=== PATIENT | female | born 1940 | race African-American/Black ===

== ENCOUNTER 2016-09-12 13:10 | Inpatient (IN) ==
--- NOTE | 2016-09-12 13:45 | Emergency Department Note ---
Disposition Clinical Impression: Dehydration, Fever, Renal failure, Anemia, Influenza A, Weakness, Hypotension, Abnormal urinalysis, Hypokalemia Disposition: Admitted As Inpatient Referrals: NO,PCP [Non-Partnered Physician] - General Adult HPI - General Chief complaint: ED General Medical Stated complaint: abd pain, dizziness,cough,headache Time Seen by Provider: 09/12/16 13:44 Source: patient Limitations: no limitations - History of Present Illness HPI Narrative: 75-year-old female reports emergency department complaining of a cough and fever. She reports she went to [facility] on Thursday and came back and became ill the next day. The patient has had a runny nose as well. No headache next of this rash or convulsion. No trouble moving the arms or legs and apparently. The patient has Crohn's disease but does not think is a Crohn' s flare. She has chronically loose stool. There is no history of tyron abdominal pain no vomiting. She has not been having any chest pain or coughing up blood. No leg swelling or pain. The patient has had some shortness of breath. There is been no back pain or urinary symptoms. The patient has been ill for a few days. She does not have a known history of COPD or asthma. She does not usually wear oxygen. No rashes are reported. The patient does not take anticoagulant medication at this time. There is a history of dizziness and weakness. Pain Scale: 4 - Related Data Home Medications Medication Instructions Recorded Confirmed Aspirin 06/20/15 06/20/15 Calcium 600 + D Tablet 06/20/15 06/20/15 Lumigan 06/20/15 06/20/15 Previous Rx's Medication Instructions Recorded Acetaminophen [Tylenol] 500 - 1,000 mg PO Q6HR PRN #30 06/20/15 tablet Amoxicillin 875 mg PO BID #20 tablet 06/20/15 GuaiFENesin ER [Mucinex] 1 - 2 tab PO BID PRN #40 tab 06/20/15 PredniSONE [Prednisone] 40 mg PO DAILY #10 tablet 06/20/15 Promethazine/Dextromethorphan 5 ml PO Q4H PRN #120 ml 06/20/15 [Promethazine-Dm Syrup] Meclizine [Antivert] 25 mg PO TID #20 tablet 12/26/15 Ondansetron HCl [Zofran] 4 mg PO 2-3XD PRN #14 tablet 12/26/15 Allergies Allergy/AdvReac Type Severity Reaction Status Date / Time IV Iron Allergy Anaphylaxis Uncoded 12/26/15 10:04 All systems ED: reviewed and negative except as stated. Past Medical History - Past Medical History Medical history: Reports: renal disease, other Psychiatric history: Reports: no psych history REGISTER CLERK history: Reports: no REGISTER CLERK history - Social History Smoking Status: Former smoker Smokeless Tobacco Status: No Alcohol use: Reports: none Drug use: Reports: none Physical Exam - General Limitations: no limitations General appearance: alert, in no apparent distress - Head Head exam: atraumatic, normocephalic, normal inspection - Eye Eye exam: Present: normal appearance, PERRL, EOMI. Absent: miosis, mydriasis - ENT ENT exam: normal exam, normal oropharynx, mucous membranes moist, TM's normal bilaterally, normal external ear exam - Neck Neck exam: Present: normal inspection, full ROM, trachea midline. Absent: tenderness - Chest Chest inspection: Present: symmetric chest wall rise - Respiratory Respiratory exam: Present: normal lung sounds bilaterally. Absent: respiratory distress - Cardiovascular Cardiovascular exam: Present: regular rate, normal rhythm, normal heart sounds - Abdominal Exam Abdominal exam: Present: soft, Non-Tender. Absent: tenderness, distention, guarding, rebound, rigidity, pulsatile mass - Extremities Exam Extremities exam: Present: normal inspection, full ROM, normal capillary refill. Absent: tenderness, pedal edema, joint swelling, calf tenderness - Expanded Lower Extremity Exam Neurovascular/Tendon exam: Present: pulse deficit. Absent: motor deficit, sensory deficit, tendon deficit - Back Exam Back exam: Present: normal inspection, full ROM, vertebral tenderness. Absent: tenderness, CVA tenderness (R), CVA tenderness (L) - Neurological Exam Neurological exam: Present: alert, oriented X3, CN II-XII intact. Absent: motor sensory deficit - Psychiatric Psychiatric exam: Present: normal affect, normal mood - Skin Skin exam: Present: warm, dry, intact, normal color. Absent: rash, cyanosis, diaphoresis, erythema, pallor, mottled Course Vital Signs Temperature 101.3 F H 09/12/16 13:17 Pulse Rate 70 09/12/16 13:17 Respiratory Rate 18 09/12/16 13:17 Blood Pressure 96/60 09/12/16 13:17 O2 Sat by Pulse Oximetry 100 09/12/16 13:17 Temperature 101.3 F H 09/12/16 13:17 Pulse Rate 87 09/12/16 16:20 Respiratory Rate 18 09/12/16 16:20 Blood Pressure 111/50 09/12/16 16:20 O2 Sat by Pulse Oximetry 97 09/12/16 16:20 Oxygen Delivery Oxygen Delivery Room Air Medical Decision Making - MDM Narrative Medical decision making narrative: The patient felt dizzy and weak, her blood pressure on arrival was less than 100 systolic. She was given IV fluid boluses. Her BUN and creatinine are elevated, consistent with her chronic renal insufficiency. Her chest x-ray shows no acute disease, she tested positive for influenza A. The patient has a history of Crohn's disease and does not think she has a Crohn's flare but does have persistently loose stool. I spoke with the patient's family and considered the option for discharge but they feel she is too weak to go home and feel if we send her out she will come right back to the ED. The patient denies any chest pain. She does have a fever. Based on her frailty and age, Tamiflu was ordered. The patient also has an abnormal urinalysis which may be contributory, I discussed the case with the hospitalist, we will have the patient placed for observation and fluid therapy, further evaluation, and symptomatic control. - Lab Data Lab results reviewed: Yes I reviewed the patient's lab results. Result diagrams: 09/12/16 14:42 09/12/16 14:42 Lab Results 09/12/16 09/12/16 09/12/16 Range/Units 13:45 14:42 14:42 WBC 4.6 (4.3-11.1) K/mcL RBC 4.22 (3.82-4.97) M/mcL Hgb 11.0 L (11.5-15.4) g/dL Hct 35.1 L (35.3-44.9) % MCV 83.2 (83.0-100.0) fL MCH 26.1 L (28.0-33.3) pg MCHC 31.3 L (31.6-35.5) g/dL RDW 15.1 H (11.5-14.5) % Plt Count 128 L (140-400) K/mcL MPV 10.3 (9.4-12.4) fL Immature Gran % 0.7 (0-4) % Seg Neutrophils % 77.2 % Lymphocytes % 11.8 % Monocytes % 9.0 % Eosinophils % 0.9 % Basophils % 0.4 % Neutrophils # 3.5 (1.6-8.9) K/mcL Lymphocytes # 0.5 L (0.6-4.6) K/mcL Monocytes # 0.4 (0.0-1.3) K/mcL Eosinophils # 0.0 (0.0-0.6) K/mcL Basophils # 0.0 (0.0-0.2) K/mcL Immature Plt Fraction 2.1 (1.1-6.1) % Sodium 138 (136-145) mEq/L Potassium 3.2 L (3.5-4.5) mEq/L Chloride 112 H (98-109) mEq/L Carbon Dioxide 16 L (19-29) mEq/L BUN 22 H (7-20) mg/dL Creatinine 2.55 H (0.57-1.11) mg/dL Est GFR ( Amer) 22 L (> 60) Est GFR (Non-Af Amer) 18 L (> 60) BUN/Creatinine Ratio 9 (6-26) Glucose 95 (70-99) mg/dL Calculated Osmolality 289 (280-300) Lactic Acid (0.5-2.2) mmol/L Calcium 8.8 (8.6-10.8) mg/dL Total Bilirubin 0.4 (0.2-1.2) mg/dL Direct Bilirubin 0.1 (0.0-0.5) mg/dL Indirect Bilirubin 0.3 (0.0-1.2) mg/dL AST 13 (5-34) Units/L ALT 12 (0-55) Units/L Alkaline Phosphatase 77 (38-126) Units/L Troponin I (0-0.03) ng/mL C-Reactive Protein (Less than 5) mg/L Serum Total Protein 6.9 (6.0-8.3) g/dL Albumin 3.2 L (3.5-5.0) g/dL Globulin 3.7 H (2.4-3.5) g/dL Albumin/Globulin Ratio 0.9 L (1.1-2.2) Urine Color Yellow (Yellow) Urine Clarity Clear (Clear) Urine pH 5.5 (5.0-8.0) pH Units Ur Specific [place] 1.017 (1.010-1.025) Urine Protein 100 H (Neg-Trace) mg/dL Urine Glucose (UA) Normal (Normal) mg/dL Urine Ketones Negative (Negative) mg/dL Urine Blood Trace H (Negative) Urine Nitrite Negative (Negative) Urine Bilirubin Negative (Negative) Urine Urobilinogen Normal (Normal) mg/dL Ur Leukocyte Esterase Small H (Negative) Urine Microscopic RBC 5-15 H (0-3) per hpf Urine Microscopic WBC 5-15 H (0-3) per hpf Ur Squamous Epith Cells Many H (None-Few) per lpf Urine Bacteria Few (None-Few) per hpf Hyaline Casts None Seen (None-Few) per lpf Ur Culture Indicated? YES A (NO) 09/12/16 09/12/16 09/12/16 Range/Units 14:42 14:42 14:42 WBC (4.3-11.1) K/mcL RBC (3.82-4.97) M/mcL Hgb (11.5-15.4) g/dL Hct (35.3-44.9) % MCV (83.0-100.0) fL MCH (28.0-33.3) pg MCHC (31.6-35.5) g/dL RDW (11.5-14.5) % Plt Count (140-400) K/mcL MPV (9.4-12.4) fL Immature Gran % (0-4) % Seg Neutrophils % % Lymphocytes % % Monocytes % % Eosinophils % % Basophils % % Neutrophils # (1.6-8.9) K/mcL Lymphocytes # (0.6-4.6) K/mcL Monocytes # (0.0-1.3) K/mcL Eosinophils # (0.0-0.6) K/mcL Basophils # (0.0-0.2) K/mcL Immature Plt Fraction (1.1-6.1) % Sodium (136-145) mEq/L Potassium (3.5-4.5) mEq/L Chloride (98-109) mEq/L Carbon Dioxide (19-29) mEq/L BUN (7-20) mg/dL Creatinine (0.57-1.11) mg/dL Est GFR ( Amer) (> 60) Est GFR (Non-Af Amer) (> 60) BUN/Creatinine Ratio (6-26) Glucose (70-99) mg/dL Calculated Osmolality (280-300) Lactic Acid 1.2 (0.5-2.2) mmol/L Calcium (8.6-10.8) mg/dL Total Bilirubin (0.2-1.2) mg/dL Direct Bilirubin (0.0-0.5) mg/dL Indirect Bilirubin (0.0-1.2) mg/dL AST (5-34) Units/L ALT (0-55) Units/L Alkaline Phosphatase (38-126) Units/L Troponin I 0.00 (0-0.03) ng/mL C-Reactive Protein 22 H (Less than 5) mg/L Serum Total Protein (6.0-8.3) g/dL Albumin (3.5-5.0) g/dL Globulin (2.4-3.5) g/dL Albumin/Globulin Ratio (1.1-2.2) Urine Color (Yellow) Urine Clarity (Clear) Urine pH (5.0-8.0) pH Units Ur Specific [place] (1.010-1.025) Urine Protein (Neg-Trace) mg/dL Urine Glucose (UA) (Normal) mg/dL Urine Ketones (Negative) mg/dL Urine Blood (Negative) Urine Nitrite (Negative) Urine Bilirubin (Negative) Urine Urobilinogen (Normal) mg/dL Ur Leukocyte Esterase (Negative) Urine Microscopic RBC (0-3) per hpf Urine Microscopic WBC (0-3) per hpf Ur Squamous Epith Cells (None-Few) per lpf Urine Bacteria (None-Few) per hpf Hyaline Casts (None-Few) per lpf Ur Culture Indicated? (NO) - Radiology Data Radiology results reviewed: Yes I reviewed the patient's radiology results.
[2016-09-12] MEDS ORDERED: 0.9 % Sodium Chloride 1,000 ML IVC ONE ×2 (14:05→15:41)
[2016-09-12 14:50] LABS: Basophils % 0.4 %; Eosinophils % 0.9 %; Hematocrit 35.1 % (35.3-44.9); Immature Granulocytes % 0.7 % (0-4); Immature Platelets 2.1 % (1.1-6.1); Lymphocytes # 0.5 K/mcL (0.6-4.6); Lymphocytes % 11.8 %; Mean Corpuscular HGB Conc 31.3 g/dL (31.6-35.5); Mean Corpuscular Hemoglobin 26.1 pg (28.0-33.3); Mean Corpuscular Volume 83.2 fL (83.0-100.0); Mean Platelet Volume 10.3 fL (9.4-12.4); Monocytes # 0.4 K/mcL (0.0-1.3); Neutrophils # 3.5 K/mcL (1.6-8.9); Platelet Count 128 K/mcL (140-400); Red Blood Count 4.22 M/mcL (3.82-4.97); Red Cell Distribution Width 15.1 % (11.5-14.5); Segmented Neutrophils % 77.2 %
[2016-09-12 15:04] LABS: Albumin 3.2 g/dL (3.5-5.0); Albumin/Globulin Ratio 0.9 (1.1-2.2); Bilirubin,Direct 0.1 mg/dL (0.0-0.5); Bilirubin,Indirect 0.3 mg/dL (0.0-1.2); Bilirubin,Total 0.4 mg/dL (0.2-1.2); Calcium 8.8 mg/dL (8.6-10.8); Globulin 3.7 g/dL (2.4-3.5); Potassium 3.2 mEq/L (3.5-4.5); Total Protein 6.9 g/dL (6.0-8.3)
[2016-09-12 17:06] LABS: Bilirubin,Urine Negative (Negative); Blood,Urine Trace (Negative); Clarity,Urine Clear (Clear); Color,Urine Yellow (Yellow); Glucose,Urine (UA) Normal (Normal); Ketones,Urine Negative (Negative); Leukocyte Esterase,Urine Small (Negative); Nitrite,Urine Negative (Negative); PH,Urine 5.5 pH Units (5.0-8.0); Protein,Urine 100 mg/dL (Neg-Trace); Specific Gravity,Urine 1.017 (1.010-1.025); Urobilinogen,Urine Normal (Normal)
[2016-09-12 17:08] LABS: Bacteria,Urine Few per hpf (None-Few); Hyaline Casts,Urine None Seen per lpf (None-Few); Squamous Epithelial Cell,Urine Many per lpf (None-Few)
[2016-09-12] MEDS ORDERED: Ibuprofen 400 MG TABLET PO PRN (17:49)
[2016-09-12] MEDS ORDERED: Naloxone 0.4 MG/ML INJ IVP PRN (17:49)
[2016-09-12] MEDS ORDERED: *HR* Morphine 2 MG/ML SYRINGE IVP PRN (17:49)
[2016-09-12] MEDS ORDERED: Ondansetron 4 MG/2 ML VIAL IVP PRN (17:49)
[2016-09-12] MEDS ORDERED: Ipratropium/Albuterol Neb 3 ML IH PRN (17:52)
--- NOTE | 2016-09-12 17:57 | Internal Med History&Physical ---
Date of Encounter: 09/12/16 Time of Encounter: 17:55 Assessment and Plan (1) Influenza A Current visit: Yes Status: Acute Fever, dehydration and severe weakness secondary to influenza A + urinary tract infection Start Tamiflu, continue Rocephin Follow urine culture IV fluids (2) Crohns disease Current visit: Yes Status: Acute Not active Qualifiers: Gastrointestinal tract location: unspecified location Digestive disease complication type: unspecified complication Qualified Code(s): K50.919 - Crohn 's disease, unspecified, with unspecified complications (3) Dehydration Current visit: Yes Status: Acute (4) Fever Current visit: Yes Status: Acute Qualifiers: Fever type: other Qualified Code(s): R50.81 - Fever presenting with conditions classified elsewhere (5) Hypokalemia Current visit: Yes Status: Acute Replete as needed (6) Renal failure Current visit: Yes Status: Acute CK D stage IV Dehydration Famotidine for GI prophylaxis and subcutaneous heparin for DVT prophylaxis. The patient will be admitted for observation. She is a full code. Time spent on this admission 40 minutes. High risk of complications from influenza Internal Medicine - H&P: HPI Chief complaint: Fever Admitted From: Emergency Dept History of present illness: Ms. Wilkinson is a 75 year old female with a past medical history of Crohn's disease, chronic kidney disease stage IV, GERD who comes the emergency room complaining of severe weakness, cough and fevers. She ran a fever of 101.3, denies any sick contacts but she went to [place] on Thursday in the next day she felt like she was having a runny nose and he started getting worse. Also she has been complaining of some dysuria on and off, the UA shows 15 white blood cells. Chest x-ray does not show any abnormality platelets are 128 and creatinine is 2.55. The patient was positive for influenza A. Potassium is 3.2. The patient has been complaining of some yellowish phlegm coming up as well. Denies any other complaints. She is very dehydrated and not able to walk due to weakness Past Med Surg Social Fam HX - Past Medical History Medical history: hyperlipidemia, renal disease (Chronic kidney disease stage IV) , other (Crohn's disease, degenerative disc disease L5-S1, GERD, glaucoma, iron deficiency anemia) Psychiatric history: no psych history - Past Surgical History Surgical History: appendectomy, hysterectomy, other (Tonsillectomy, right breast biopsy, right knee arthroscopy/meniscectomy, right salpingo-oophorectomy) - Social History Smoking Status: Former smoker Smokeless Tobacco Status: No Alcohol use: none Drug use: none - Additional Family History Additional family history: Mother and sister with diabetes and CVA, mother with heart disease Internal Medicine - H&P: Meds Aspirin [Lo-Dose Aspirin EC] 81 mg PO DAILY 09/12/16 [History] Brimonidine Tartrate 1 drop LEFT EYE TID 09/12/16 [History] Calcium Carb, Citrate/Vit D3 [Calcium + D3 ER Tablet] 1 tab PO DAILY 09/12/16 [ History] Cholecalciferol (D-3) [Vitamin D] 2,000 unit PO DAILY 09/12/16 [History] Cyanocobalamin (B-12) [Vitamin B12] 1,000 mcg IM QMONTH 09/12/16 [History] Ergocalciferol (VITAMIN D2) [Vitamin D2] 50,000 unit PO TUWE 09/12/16 [History] Fluticasone Propionate Nasal [Flonase] 50 mcg NS DAILY 09/12/16 [History] Lactobacillus Acidophilus [Acidophilus] 1 cap PO DAILY 09/12/16 [History] Latanoprost [Xalatan] 1 drop BOTH EYES HS 09/12/16 [History] Stehekin-3 Acid Ethyl Esters [Lovaza] 1 gm PO BID 09/12/16 [History] Omeprazole [PriLOSEC] 20 mg PO DAILY 09/12/16 [History] Potassium Chloride [K-Tab ER] 20 meq PO TID 09/12/16 [History] Ropinirole [Requip] 0.25 mg PO HS 09/12/16 [History] Tramadol HCl [Ultram] 50 mg PO Q6H PRN 09/12/16 [History] Allergies iron Allergy (Verified 09/12/16 17:46) Anaphylaxis IRON INFUSION- Oocakgv-Wcw-Rpo Reductase Inhibitor [Statins] Adverse Reaction (Verified 17:46) Muscle Pain All Systems PM: A 10-system review of systems was performed and is negative for pertinent findings except as documented above in the HPI. Review of systems: No chest pain, feels mildly short of breath, no abdominal pain, no diarrhea more than usual. Other systems out the 10 reviewed were negative - Constitutional Vitals: Temp Pulse Resp BP Pulse Ox 101.3 F H 87 18 111/50 97 09/12/16 13:17 09/12/16 16:20 09/12/16 16:20 09/12/16 16:20 09/12/16 16:20 General appearance: Present: A&O X 3 - Head Head exam: Present: atraumatic, normocephalic - Eye Eye exam: Present: PERRL, conjuntiva pink, sclera anicteric Pupils: Present: PERRL - Neck Neck exam general surgery: Present: supple, trachea midline. Absent: lymphadenopathy - Respiratory Respiratory exam: Present: CTAB, rales (Bibasilar fine crackles). Absent: accessory muscle use, rhonchi, wheezes - Cardiovascular Cardiovascular exam: Present: RRR, +S1, +S2. Absent: diastolic murmur, gallop, rubs, systolic murmur - GI/Abdominal GI/Abdominal exam: Present: normal bowel sounds, soft, no peritoneal signs. Absent: distended, tenderness - Extremities Exam Extremities exam: Present: warm, radial pulses palpable and symetrical. Absent : calf tenderness, cyanotic, pedal edema - Neurological Exam Neurological exam: Present: CN II-XII intact, oriented X3, no focal deficits. Absent: pronater drift, facial droop, speech deficit - Skin Skin exam: Present: dry, intact Internal Med - H&P Results - Labs CBC & Chem 7: 09/12/16 14:42 09/12/16 14:42
[2016-09-12] MEDS ORDERED: 0.9 % Sodium Chloride 1,000 ML IVC SCH (18:00)
[2016-09-12] MEDS: Famotidine 20 MG TABLET PO SCH (20:53)
[2016-09-12] MEDS: Acetaminophen 325 MG TABLET PO PRN (20:53)
[2016-09-12] MEDS ORDERED: 0.9 % Sodium Chloride 500 ML IVC ONE (21:11)
[2016-09-13] MEDS: *HR* Heparin 5,000 UNIT/ML VIAL SQ SCH ×3 (00:31→17:33)
[2016-09-13] MEDS ORDERED: 0.9 % Sodium Chloride 1,000 ML IVC SCH (00:35)
[2016-09-13 03:37] LABS: Hematocrit 31.9 % (35.3-44.9); Mean Corpuscular HGB Conc 31.3 g/dL (31.6-35.5); Mean Corpuscular Hemoglobin 26.6 pg (28.0-33.3); Mean Corpuscular Volume 84.8 fL (83.0-100.0); Mean Platelet Volume 10.4 fL (9.4-12.4); Platelet Count 103 K/mcL (140-400); Red Blood Count 3.76 M/mcL (3.82-4.97); Red Cell Distribution Width 15.1 % (11.5-14.5)
[2016-09-13 03:52] LABS: Calcium 7.9 mg/dL (8.6-10.8); Potassium 3.3 mEq/L (3.5-4.5)
[2016-09-13] MEDS: Acetaminophen 325 MG TABLET PO PRN ×2 (03:58→12:51)
[2016-09-13] MEDS: Famotidine 20 MG TABLET PO SCH (08:53)
[2016-09-13] MEDS: Aspirin 81 MG TAB.CHEW PO SCH (08:53)
[2016-09-13] MEDS: GuaiFENesin Liq 200 MG/10 ML UDC PO SCH ×2 (12:50→17:33)
[2016-09-13] MEDS ORDERED: Potassium Chloride Elixir 20 MEQ/15 ML UDC PO ONE (15:05)
--- NOTE | 2016-09-13 15:11 | Internal Med Progress Note ---
Date of Encounter: 09/13/16 Time of Encounter: 09:00 - Assessment and plan (1) Influenza A Current Visit: Yes Status: Acute Assessment and plan: Flu test that shows influenza A positive. We will continue Tamiflu to finish a 5 day course. (2) UTI (urinary tract infection) Current Visit: Yes Status: Acute Assessment and plan: Continue Rocephin for UTI. Qualifiers: Urinary tract infection type: acute cystitis Hematuria presence: without hematuria Qualified Code(s): N30.00 - Acute cystitis without hematuria (3) Crohns disease Current Visit: Yes Status: Acute Assessment and plan: Stable right now. Qualifiers: Gastrointestinal tract location: unspecified location Digestive disease complication type: unspecified complication Qualified Code(s): K50.919 - Crohn 's disease, unspecified, with unspecified complications (4) Dehydration Current Visit: Yes Status: Acute Assessment and plan: Patient has a mild dehydration. We will continue IV fluid. Change to lactated ringer solution because of the low bicarbonate. (5) Fever Current Visit: Yes Status: Acute Assessment and plan: Possibly due to influenza. Continue symptoms and supportive treatment Qualifiers: Fever type: other Qualified Code(s): R50.81 - Fever presenting with conditions classified elsewhere (6) Hypokalemia Current Visit: Yes Status: Acute Assessment and plan: Continue potassium supplement, follow-up potassium level (7) CKD (chronic kidney disease) Current Visit: Yes Status: Acute Assessment and plan: Patient has history of CKD. Creatinine level is stable Qualifiers: Chronic kidney disease stage: stage 4 (severe) Qualified Code(s): N18.4 - Chronic kidney disease, stage 4 (severe) (8) DVT prophylaxis Current Visit: Yes Status: Acute Assessment and plan: Heparin subcutaneously - Time Spent With Patient 25 - 35 minutes - Subjective Interval history: Patient is a 75-year-old female admitted for fever and cough. Her past medical history is significant for hyperlipidemia, she daily, Crohn disease, glaucoma, iron deficiency anemia. Patient was seen and examined. She had another episode of fever this morning. When I saw her, she is awake alert, oriented 3, no fever, complaining nonproductive cough, no shortness of breath, no chest pain, no nausea, no vomiting. Vital signs stable. We will continue Tamiflu and Rocephin for UTI. Add cough syrup for symptomatic control. - Constitutional Vitals: Temp Pulse Resp BP Pulse Ox 98.7 F 68 17 96/62 94 L 09/13/16 10:45 09/13/16 10:45 09/13/16 10:45 09/13/16 10:45 09/13/16 10:45 General appearance: Present: A&O X 3, no acute distress, answers questions appropriately - Head Head exam: Present: atraumatic, normocephalic - Eye Eye exam: Present: PERRL, conjuntiva pink, sclera anicteric Pupils: Present: PERRL - Neck Neck exam general surgery: Present: supple, trachea midline. Absent: lymphadenopathy - Respiratory Respiratory exam: Present: CTAB. Absent: accessory muscle use, rales, rhonchi, wheezes - Cardiovascular Cardiovascular exam: Present: RRR, +S1, +S2. Absent: diastolic murmur, gallop, rubs, systolic murmur - GI/Abdominal GI/Abdominal exam: Present: normal bowel sounds, soft, no peritoneal signs. Absent: distended, tenderness - Extremities Exam Extremities exam: Present: warm, radial pulses palpable and symetrical. Absent : calf tenderness, cyanotic, pedal edema - Neurological Exam Neurological exam: Present: CN II-XII intact, oriented X3, no focal deficits. Absent: pronater drift, facial droop, speech deficit - Skin Skin exam: Present: dry, intact Internal Medicine: Result - Labs CBC & Chem 7: 09/13/16 02:37 09/13/16 02:37 Labs: Short CBC 09/13/16 Range/Units 02:37 WBC 3.8 L (4.3-11.1) K/mcL Hgb 10.0 L (11.5-15.4) g/dL Hct 31.9 L (35.3-44.9) % Plt Count 103 L (140-400) K/mcL BMP 09/13/16 02:37 Sodium 140 Potassium 3.3 L Chloride 116 H Carbon Dioxide 15 L BUN 18 Creatinine 2.24 H Glucose 93 Calcium 7.9 L Consult Discharge Plan - Plan
[2016-09-13] MEDS: Ringers Solution, Lactated 1,000 ML IVC SCH (17:34)
[2016-09-13] MEDS ORDERED: Oseltamivir Phosphate 30 MG CAPSULE PO SCH (18:00)
[2016-09-14] MEDS: *HR* Heparin 5,000 UNIT/ML VIAL SQ SCH ×2 (00:57→08:54)
[2016-09-14] MEDS: GuaiFENesin Liq 200 MG/10 ML UDC PO SCH ×2 (00:57→05:05)
[2016-09-14 04:25] LABS: Basophils % 0.3 %; Eosinophils # 0.1 K/mcL (0.0-0.6); Eosinophils % 4.8 %; Hematocrit 31.4 % (35.3-44.9); Hemoglobin 9.9 g/dL (11.5-15.4); Immature Granulocytes % 0.3 % (0-4); Lymphocytes % 35.1 %; Mean Corpuscular HGB Conc 31.5 g/dL (31.6-35.5); Mean Corpuscular Hemoglobin 26.5 pg (28.0-33.3); Mean Corpuscular Volume 84.2 fL (83.0-100.0); Mean Platelet Volume 10.9 fL (9.4-12.4); Monocytes # 0.4 K/mcL (0.0-1.3); Monocytes % 13.7 %; Neutrophils # 1.3 K/mcL (1.6-8.9); Platelet Count 105 K/mcL (140-400); Red Blood Count 3.73 M/mcL (3.82-4.97); Red Cell Distribution Width 15.4 % (11.5-14.5); Segmented Neutrophils % 45.8 %
[2016-09-14 04:38] LABS: Calcium 7.8 mg/dL (8.6-10.8); Potassium 3.3 mEq/L (3.5-4.5)
[2016-09-14] MEDS: Ringers Solution, Lactated 1,000 ML IVC SCH (05:05)
[2016-09-14 07:37] VITALS: BP 97/64
[2016-09-14] MEDS: Famotidine 20 MG TABLET PO SCH (08:54)
[2016-09-14] MEDS: Aspirin 81 MG TAB.CHEW PO SCH (08:54)
--- NOTE | 2016-09-14 09:34 | Discharge Summary ---
Date of Encounter: 09/14/16 Time of Encounter: 08:30 - Discharge Diagnosis (1) Influenza A Priority: Primary Status: Acute (2) UTI (urinary tract infection) Priority: Primary Status: Acute Qualifiers: Urinary tract infection type: acute cystitis Hematuria presence: without hematuria Qualified Code(s): N30.00 - Acute cystitis without hematuria (3) Crohns disease Priority: Secondary Status: Acute Qualifiers: Gastrointestinal tract location: unspecified location Digestive disease complication type: unspecified complication Qualified Code(s): K50.919 - Crohn 's disease, unspecified, with unspecified complications (4) Dehydration Priority: Secondary Status: Acute (5) Fever Priority: Secondary Status: Acute Qualifiers: Fever type: other Qualified Code(s): R50.81 - Fever presenting with conditions classified elsewhere (6) Hypokalemia Priority: Secondary Status: Acute (7) CKD (chronic kidney disease) Priority: Secondary Status: Acute Qualifiers: Chronic kidney disease stage: stage 4 (severe) Qualified Code(s): N18.4 - Chronic kidney disease, stage 4 (severe) (8) DVT prophylaxis Priority: Secondary Status: Acute - Discharge Medications Prescriptions: GuaiFENesin Liq [Robitussin Liq] 200 mg PO Q6HR 14 Days Amoxicillin/Clavulanate [Augmentin] 500 mg PO BIDWM #10 tablet Oseltamivir Phosphate [Tamiflu] 30 mg PO Q24H #4 capsule Home Medications: Aspirin [Lo-Dose Aspirin EC] 81 mg PO DAILY 09/12/16 [History] Brimonidine Tartrate 1 drop LEFT EYE TID 09/12/16 [History] Calcium Carb, Citrate/Vit D3 [Calcium + D3 ER Tablet] 1 tab PO DAILY 09/12/16 [ History] Cholecalciferol (D-3) [Vitamin D] 2,000 unit PO DAILY 09/12/16 [History] Cyanocobalamin (B-12) [Vitamin B12] 1,000 mcg IM QMONTH 09/12/16 [History] Ergocalciferol (VITAMIN D2) [Vitamin D2] 50,000 unit PO TUWE 09/12/16 [History] Fluticasone Propionate Nasal [Flonase] 50 mcg NS DAILY 09/12/16 [History] Lactobacillus Acidophilus [Acidophilus] 1 cap PO DAILY 09/12/16 [History] Latanoprost [Xalatan] 1 drop BOTH EYES HS 09/12/16 [History] Dix-3 Acid Ethyl Esters [Lovaza] 1 gm PO BID 09/12/16 [History] Omeprazole [PriLOSEC] 20 mg PO DAILY 09/12/16 [History] Potassium Chloride [K-Tab ER] 20 meq PO TID 09/12/16 [History] Ropinirole [Requip] 0.25 mg PO HS 09/12/16 [History] Tramadol HCl [Ultram] 50 mg PO Q6H PRN 09/12/16 [History] Amoxicillin/Clavulanate [Augmentin] 500 mg PO BIDWM #10 tablet 09/14/16 [Rx] GuaiFENesin Liq [Robitussin Liq] 200 mg PO Q6HR 14 Days 09/14/16 [Rx] Oseltamivir Phosphate [Tamiflu] 30 mg PO Q24H #4 capsule 09/14/16 [Rx] Allergies/Adverse Reactions: Allergies iron Allergy (Verified 09/12/16 17:46) Anaphylaxis IRON INFUSION- Gelvpus-Tfd-Jqt Reductase Inhibitor [Statins] Adverse Reaction (Verified 17:46) Muscle Pain Date of admission: 09/13/16 15:03 Primary care physician: Vasquez Morris MD Discharging clinician: Marina Jessica Anticipated date of discharge: 09/14/16 - Patient Status Disposition: Home, Self-Care Condition: Good Functional capacity at discharge: independent ambulation Overall status at discharge: patient is back to baseline - Discharge Instructions Follow Up With: Vasquez Morirs MD [Primary Care Provider] - Forms: ED Satisfaction Letter, Work/School Release - Diet and Activity Activity: increase activity as tolerated Diet: advance to your usual diet, regular diet Interval History: Ms. Wilkinson is a 75 year old female with a past medical history of Crohn's disease, chronic kidney disease stage IV, GERD who comes the emergency room complaining of severe weakness, cough and fevers. She ran a fever of 101.3, denies any sick contacts but she went to [place] on Thursday in the next day she felt like she was having a runny nose and he started getting worse. Also she has been complaining of some dysuria on and off, the UA shows 15 white blood cells. Chest x-ray does not show any abnormality platelets are 128 and creatinine is 2.55. The patient was positive for influenza A. Potassium is 3.2. The patient has been complaining of some yellowish phlegm coming up as well. Denies any other complaints. She is very dehydrated and not able to walk due to weakness Hospital course: Ms. Wilkinson is a 75 year old female admitted for cough and fever. Chest x-ray is negative. Flu test that shows she has influenza A. urinalysis showed UTI. Patient was given IV fluid, Tamiflu by mouth, and the Rocephin. After treatment , her symptoms has improved. She has no further fever. She complains some sinusitis symptoms. Patient will discharge home today with by mouth Tamiflu to finish a 5 day course. She is also given Augmentin by mouth for sinusitis and UTI. Patient was seen and examined today. She has no fever, still mild cough, mild stuff nose, vitals are stable. Patient has a mild hypokalemia(K 3.3). She told me she always has hypokalemia and it is due to her Crohn disease and chronic diarrhea. She has potassium pills in her home medication list and knows she needs to follow-up with PCP to check the potassium level. Will continue home dose of potassium supplement. Patient will follow-up with PCP as outpatient. - Time Spent with Patient Total time spent providing and/or coordinating discharge services: 40 minutes Greater than 30 minutes - Constitutional Vitals: Temp Pulse Resp BP Pulse Ox 98.5 F 77 17 97/64 93 L 09/14/16 07:32 09/14/16 07:32 09/14/16 07:32 09/14/16 07:32 09/14/16 07:32 General appearance: Present: A&O X 3, no acute distress, answers questions appropriately - Head Head exam: Present: atraumatic, normocephalic - Eye Eye exam: Present: PERRL, conjuntiva pink, sclera anicteric Pupils: Present: PERRL - Neck Neck exam general surgery: Present: supple, trachea midline. Absent: lymphadenopathy - Respiratory Respiratory exam: Present: CTAB. Absent: accessory muscle use, rales, rhonchi, wheezes - Cardiovascular Cardiovascular exam: Present: RRR, +S1, +S2. Absent: diastolic murmur, gallop, rubs, systolic murmur - GI/Abdominal GI/Abdominal exam: Present: normal bowel sounds, soft, no peritoneal signs. Absent: distended, tenderness - Extremities Exam Extremities exam: Present: warm, radial pulses palpable and symetrical. Absent : calf tenderness, cyanotic, pedal edema - Neurological Exam Neurological exam: Present: CN II-XII intact, oriented X3, no focal deficits. Absent: pronater drift, facial droop, speech deficit - Skin Skin exam: Present: dry, intact
--- NOTE | 2016-09-15 09:23 | Electrocardiograph Report ---
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
== END 2016-09-14 11:22 | disposition home or self-care (01) | DRG 194 ==
LOC: EMEROO 13:10 → 3BNU 13:10 → SUATTDRO 17:31 → 3BNU 18:25
PROVIDERS: ADMIT Internal Medicine; ATTEND Internal Medicine

== ENCOUNTER 2017-11-18 15:30 | Observation (INO) ==
--- NOTE | 2017-11-18 16:02 | Emergency Department Note ---
Disposition Clinical Impression: TIA (transient ischemic attack) Qualifiers: Transient cerebral ischemia type: unspecified Qualified Code(s): G45.9 - Transient cerebral ischemic attack, unspecified Disposition: Admitted As Inpatient Condition: Fair Referrals: Vasquez Morris MD [Primary Care Provider] - Forms: ED Satisfaction Letter Time of Disposition: 18:09 Headache HPI - General Chief Complaint: ED Headache Stated Complaint: MADRIGAL Time Seen by Provider: 11/18/17 15:45 Source: patient Mode of arrival: ambulatory Limitations: no limitations Nursing Notes Reviewed: Yes Vital Signs Reviewed: Yes - History of Present Illness HPI Narrative: 77-year-old who was getting out of a cart [facility] and developed severe left temporal pain. She states she had to sit down. She states then got up after resolved and walked and developed severe pain again. She feels funny left side of her head and face. Denies visual changes. 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 Onset description: sudden Location: left, temporal Pain Severity: severe Pain Scale: 1 Improves with: other (Time) Context: occurred at rest Associated symptoms: Reports: none Treatments prior to arrival: none - Related Data Home Medications Medication Instructions Recorded Confirmed Aspirin [Lo-Dose Aspirin EC] 81 mg PO DAILY 09/12/16 09/12/16 Brimonidine Tartrate 1 drop LEFT EYE TID 09/12/16 09/12/16 Calcium Carb, Citrate/Vit D3 1 tab PO DAILY 09/12/16 09/12/16 [Calcium + D3 ER Tablet] Cholecalciferol (D-3) [Vitamin D] 2,000 unit PO DAILY 09/12/16 09/12/16 Cyanocobalamin (B-12) [Vitamin B12] 1,000 mcg IM QMONTH 09/12/16 09/12/16 Ergocalciferol (VITAMIN D2) 50,000 unit PO TUWE 09/12/16 09/12/16 [Vitamin D2] Fluticasone Propionate Nasal 50 mcg NS DAILY 09/12/16 09/12/16 [Flonase] Lactobacillus Acidophilus 1 cap PO DAILY 09/12/16 09/12/16 [Acidophilus] Latanoprost [Xalatan] 1 drop BOTH EYES HS 09/12/16 09/12/16 [place]-3 Acid Ethyl Esters [Lovaza] 1 gm PO BID 09/12/16 09/12/16 Omeprazole [PriLOSEC] 20 mg PO DAILY 09/12/16 09/12/16 Potassium Chloride [K-Tab ER] 20 meq PO TID 09/12/16 09/12/16 Tramadol HCl [Ultram] 50 mg PO Q6H PRN 09/12/16 09/12/16 rOPINIRole [Requip] 0.25 mg PO HS 09/12/16 09/12/16 Previous Rx's Medication Instructions Recorded Amoxicillin/Clavulanate [Augmentin] 500 mg PO BIDWM #10 tablet 09/14/16 GuaiFENesin Liq [Robitussin Liq] 200 mg PO Q6HR 14 Days udc 09/14/16 Oseltamivir Phosphate [Tamiflu] 30 mg PO Q24H #4 capsule 09/14/16 Meclizine [Antivert] 12.5 mg PO TID #15 tablet 11/25/16 Montelukast [Singulair] 10 mg PO DAILY #20 tablet 11/25/16 Cyclobenzaprine HCl 5 - 10 mg PO TID PRN #30 tablet 03/11/17 Allergies Allergy/AdvReac Type Severity Reaction Status Date / Time iron Allergy Anaphylaxis Verified 11/18/17 15:43 Trtcugf-Vgl-Doa Reductase AdvReac Muscle Pain Verified 11/18/17 15:43 Inhibitor [Statins] All systems ED: reviewed and negative except as stated. Constitutional: Denies: fever, chills, weakness, weight change Eyes: Denies: eye pain, eye discharge, vision change ENT ED: Denies: ear pain, throat pain, dental pain, hearing loss, epistaxis, congestion, dysphagia Cardiovascular: Denies: chest pain, palpitations, dyspnea on exertion, edema, syncope Respiratory: Denies: cough, dyspnea, wheezes, hemoptysis, stridor Gastrointestinal: Denies: abdominal pain, nausea, vomiting, diarrhea, constipation, hematemesis, melena, hematochezia Genitourinary: Denies: dysuria, frequency, hematuria, discharge Musculoskeletal: Denies: back pain, neck pain, arthralgia, myalgia Integumentary: Denies: rash, abrasion, lesions Neurological: Reports: headache, numbness (Left head and face). 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) Female Surgical History: Reports: non-contributory, appendectomy, cholecystectomy, hysterectomy, other (multiple bowel resections; Tumor on pancrease removed ) Psychiatric history: Reports: no psych history QUANTITATIVE RESEARCH ANALYST history: Reports: no QUANTITATIVE RESEARCH ANALYST history - Social History Smoking Status: Never smoker Alcohol use: Reports: none Drug use: Reports: none Physical Exam - General Limitations: no limitations General appearance: alert - Head Head exam: atraumatic, normocephalic, normal inspection - Eye Eye exam: Present: normal appearance, PERRL, EOMI - ENT ENT exam: normal exam, normal oropharynx, mucous membranes moist - Neck Neck exam: Present: normal inspection, full ROM, trachea midline - Chest Chest inspection: Present: normal inspection, symmetric chest wall rise - Respiratory Respiratory exam: Present: normal lung sounds bilaterally - Cardiovascular Cardiovascular exam: Present: regular rate, normal rhythm, normal heart sounds - Abdominal Exam Abdominal exam: Present: soft, Non-Tender. Absent: tenderness, distention, guarding, rebound, rigidity - Extremities Exam Extremities exam: Present: normal inspection, full ROM. Absent: tenderness, pedal edema - Expanded Lower Extremity Exam Neurovascular/Tendon exam: Absent: motor deficit, sensory deficit, tendon deficit Gait: observed and normal - Back Exam Back exam: Present: normal inspection, full ROM. Absent: tenderness - Neurological Exam Neurological exam: Present: alert, oriented X3 - Psychiatric Psychiatric exam: Present: normal affect, normal mood - Skin Skin exam: Present: warm, dry, intact, normal color Course - Reevaluation(s) Reevaluation #1: 77-year-old comes in complaining of left-sided facial numbness and some thick speech with pain to the left side of her head intermittently. Workup here her NIH stroke scale was 0 her symptoms resolved while here she had no significant findings of tenderness over the temporal artery. Symptoms concerning for TIA. Time: 18:08 - Consultations Consultation #1: Discussed with Dr. Flaherty, admit Time: 18:10 Vital Signs Temperature 98 F 11/18/17 15:31 Pulse Rate 69 11/18/17 15:31 Respiratory Rate 18 11/18/17 15:31 Blood Pressure 143/71 11/18/17 15:31 O2 Sat by Pulse Oximetry 98 11/18/17 15:31 Temperature 98 F 11/18/17 15:31 Pulse Rate 70 11/18/17 18:07 Respiratory Rate 20 11/18/17 18:07 Blood Pressure 137/81 11/18/17 18:07 O2 Sat by Pulse Oximetry 96 11/18/17 18:07 Oxygen Delivery Oxygen Delivery Room Air Headache - Lab Data Lab results reviewed: Yes I reviewed the patient's lab results. Result diagrams: 11/18/17 16:02 11/18/17 16:02 Lab Results 11/18/17 11/18/17 11/18/17 Range/Units 16:02 16:02 16:02 WBC 11.4 H (4.3-11.1) K/mcL RBC 4.18 (3.82-4.97) M/mcL Hgb 11.1 L (11.5-15.4) g/dL Hct 34.7 L (35.3-44.9) % MCV 83.0 (83.0-100.0) fL MCH 26.6 L (28.0-33.3) pg MCHC 32.0 (31.6-35.5) g/dL RDW 14.7 H (11.5-14.5) % Plt Count 179 (140-400) K/mcL MPV 10.7 (9.4-12.4) fL Immature Gran % 0.6 (0-4) % Seg Neutrophils % 69.6 % Lymphocytes % 20.8 % Monocytes % 8.3 % Eosinophils % 0.5 % Basophils % 0.2 % Neutrophils # 7.9 (1.6-8.9) K/mcL Lymphocytes # 2.4 (0.6-4.6) K/mcL Monocytes # 1.0 (0.0-1.3) K/mcL Eosinophils # 0.1 (0.0-0.6) K/mcL Basophils # 0.0 (0.0-0.2) K/mcL ESR (0-15) mm/hr PT 11.2 (9.4-12.1) Seconds INR 1.0 APTT 23.9 L (26.0-36.0) Seconds Sodium 138 (136-145) mEq/L Potassium 4.0 (3.5-5.1) mEq/L Chloride 107 (98-107) mEq/L Carbon Dioxide 22 L (23-29) mEq/L BUN 39 H (8-23) mg/dL Creatinine 2.31 H (0.60-1.20) mg/dL Est GFR ( Amer) 25 L (> 60) Est GFR (Non-Af Amer) 20 L (> 60) BUN/Creatinine Ratio 17 (6-26) Glucose 136 H (70-105) mg/dL Calculated Osmolality 297 (280-300) Calcium 9.3 (8.6-10.3) mg/dL 11/18/17 Range/Units 16:02 WBC (4.3-11.1) K/mcL RBC (3.82-4.97) M/mcL Hgb (11.5-15.4) g/dL Hct (35.3-44.9) % MCV (83.0-100.0) fL MCH (28.0-33.3) pg MCHC (31.6-35.5) g/dL RDW (11.5-14.5) % Plt Count (140-400) K/mcL MPV (9.4-12.4) fL Immature Gran % (0-4) % Seg Neutrophils % % Lymphocytes % % Monocytes % % Eosinophils % % Basophils % % Neutrophils # (1.6-8.9) K/mcL Lymphocytes # (0.6-4.6) K/mcL Monocytes # (0.0-1.3) K/mcL Eosinophils # (0.0-0.6) K/mcL Basophils # (0.0-0.2) K/mcL ESR 19 H (0-15) mm/hr PT (9.4-12.1) Seconds INR APTT (26.0-36.0) Seconds Sodium (136-145) mEq/L Potassium (3.5-5.1) mEq/L Chloride (98-107) mEq/L Carbon Dioxide (23-29) mEq/L BUN (8-23) mg/dL Creatinine (0.60-1.20) mg/dL Est GFR ( Amer) (> 60) Est GFR (Non-Af Amer) (> 60) BUN/Creatinine Ratio (6-26) Glucose (70-105) mg/dL Calculated Osmolality (280-300) Calcium (8.6-10.3) mg/dL - Radiology Data Radiology results reviewed: Yes I reviewed the patient's radiology results. Head CT 11/18/17 15:54 IMPRESSION: No acute intracranial process identified. D/ / Carlitos Mederos MD / Carlitos Mederos MD Interpreting Provider: Carlitos Mederos MD - EKG Data EKG attestation: Yes I reviewed and interpreted this EKG. EKG shows normal: sinus rhythm Rate: normal Rhythm: NSR [place]/QRS: normal T wave inversions noted in: v1, v2 Ectopy: PVC Interpretation: other (T-wave inversion in V1 and V2 which appears new) NIH Stroke Scale - Level of Consciousness LOC: Alert - LOC Questions LOC Questions: Answers both correctly - LOC Commands LOC Commands: Performs both correctly - Best Gaze Best Gaze: Normal - Visual Visual: No visual loss - Facial Palsy Facial Palsy: Normal - Motor Arms Motor Arm-Left: No drift for 10 seconds Motor Arm-Right: No drift for 10 seconds - Motor Legs Motor Leg-Left: No drift for 5 seconds Motor Leg-Right: No drift for 5 seconds - Limb Ataxia Limb Ataxia: Normal, No Ataxia - Sensory Sensory: Mild to moderate loss, "not as sharp" (Left face and had) - Best Language Best Language: No aphasia - Dysarthria Dysarthria: Normal - Extinction and Inattention Extinction and Inattention: Normal - NIHSS Total Score NIHSS Total Score: 1
[2017-11-18 16:22] LABS: Basophils % 0.2 %; Eosinophils # 0.1 K/mcL (0.0-0.6); Eosinophils % 0.5 %; Hematocrit 34.7 % (35.3-44.9); Hemoglobin 11.1 g/dL (11.5-15.4); Immature Granulocytes % 0.6 % (0-4); Lymphocytes # 2.4 K/mcL (0.6-4.6); Lymphocytes % 20.8 %; Mean Corpuscular Hemoglobin 26.6 pg (28.0-33.3); Mean Platelet Volume 10.7 fL (9.4-12.4); Monocytes % 8.3 %; Neutrophils # 7.9 K/mcL (1.6-8.9); Platelet Count 179 K/mcL (140-400); Red Blood Count 4.18 M/mcL (3.82-4.97); Red Cell Distribution Width 14.7 % (11.5-14.5); Segmented Neutrophils % 69.6 %
[2017-11-18 16:27] LABS: Prothrombin Time 11.2 Seconds (9.4-12.1)
[2017-11-18 16:29] LABS: Activated Partial Thrombo Time 23.9 Seconds (26.0-36.0)
[2017-11-18 16:40] LABS: Calcium 9.3 mg/dL (8.6-10.3)
--- NOTE | 2017-11-18 21:39 | Internal Med History&Physical ---
Date of Encounter: 11/18/17 Time of Encounter: 21:00 Assessment and Plan (1) TIA (transient ischemic attack) Current visit: Yes Status: Acute Patient with left sided parietal headache with transient slurred speech and altered facial sensation Head CT in the ER negative We will order MRI/MRA of head and neck to rule out CVA Qualifiers: Transient cerebral ischemia type: unspecified Qualified Code(s): G45.9 - Transient cerebral ischemic attack, unspecified (2) CKD (chronic kidney disease) stage 3, GFR 30-59 ml/min Current visit: Yes Status: Acute Creatinine appears to be at baseline at 2.31 Continue to monitor (3) DVT prophylaxis Current visit: No Status: Acute Subcutaneous heparin Internal Medicine - H&P: HPI Chief complaint: Headache Admitted From: Home Plans for Post Hospital Care: Home History of present illness: Patient is a 77-year-old female with past medical history significant for glaucoma and GERD who presents to the ER on 11/18/17 due to headache. Patient reports that her symptoms have occurred intermittently for the last year usually monthly but intensity has increased in the last day. Patient reports that her headache is located in the left parietal region and describes a sharp with a severity of 10 out of 10 lasting for seconds with no provoking or relieving factors. Patient denies any associated symptoms of visual changes. She does report of altered sensation on the left side of her face today in addition to slurred speech which was witnessed by ER personnel. Head CT in the ER was negative. Patient will be admitted to the medical surgical floor for TIA/CVA rule out. Past Med Surg Social Fam HX - Past Medical History Medical history: arthritis, GERD, glaucoma, hyperlipidemia, renal disease, other Psychiatric history: no psych history - Past Surgical History Surgical History: non-contributory, appendectomy, cholecystectomy, hysterectomy , other - Social History Smoking Status: Never smoker Smokeless Tobacco Status: No Alcohol use: none Drug use: none - Family History Mother Living Status: Hx Family Cardiac Disorders: Yes (Stroke) Hx Family Cancer: Yes Internal Medicine - H&P: Meds Aspirin [Lo-Dose Aspirin EC] 81 mg PO DAILY 09/12/16 [History] Brimonidine Tartrate 1 drop LEFT EYE TID 09/12/16 [History] Calcium Carb, Citrate/Vit D3 [Calcium + D3 ER Tablet] 1 tab PO DAILY 09/12/16 [ History] Cholecalciferol (D-3) [Vitamin D] 2,000 unit PO BID 09/12/16 [History] Cyanocobalamin (B-12) [Vitamin B12] 1,000 mcg IM QMONTH 09/12/16 [History] Ergocalciferol (VITAMIN D2) [Vitamin D2] 50,000 unit PO TUWE 09/12/16 [History] Fluticasone Propionate Nasal [Flonase] 50 mcg NS DAILY 09/12/16 [History] Lactobacillus Acidophilus [Acidophilus] 1 cap PO DAILY 09/12/16 [History] Latanoprost [Xalatan] 1 drop BOTH EYES HS 09/12/16 [History] Collins-3 Acid Ethyl Esters [Lovaza] 1 gm PO BID 09/12/16 [History] Omeprazole [PriLOSEC] 20 mg PO DAILY 09/12/16 [History] Potassium Chloride [K-Tab ER] 20 meq PO TID 09/12/16 [History] Tramadol HCl [Ultram] 50 mg PO Q6H PRN 09/12/16 [History] rOPINIRole [Requip] 0.25 mg PO HS 09/12/16 [History] Amoxicillin/Clavulanate [Augmentin] 500 mg PO BIDWM #10 tablet 09/14/16 [Rx] GuaiFENesin Liq [Robitussin Liq] 200 mg PO Q6HR 14 Days udc 09/14/16 [Rx] Meclizine [Antivert] 12.5 mg PO TID #15 tablet 11/25/16 [Rx] Montelukast [Singulair] 10 mg PO DAILY #20 tablet 11/25/16 [Rx] Cyclobenzaprine HCl 5 - 10 mg PO TID PRN #30 tablet 03/11/17 [Rx] Timolol [Betimol] 5 ml OP DAILY 11/18/17 [History] 3 Allergy/AdvReac Type Severity Reaction Status Date / Time iron Allergy Anaphylaxis Verified 11/18/17 15:43 Sgpkcbj-Zin-Fkl Reductase AdvReac Muscle Pain Verified 11/18/17 15:43 Inhibitor [Statins] All Systems PM: A 10-system review of systems was performed and is negative for pertinent findings except as documented above in the HPI. - Constitutional Vitals: Temp Pulse Resp BP Pulse Ox 98 F 70 20 123/69 96 11/18/17 15:31 11/18/17 18:07 11/18/17 18:45 11/18/17 18:45 11/18/17 18:07 General appearance: Present: no acute distress - Head Head exam: Present: normocephalic - Eye Eye exam: Present: normal appearance - ENT ENT exam: Present: mucous membranes moist - Respiratory Respiratory exam: Present: CTAB. Absent: accessory muscle use, rales, rhonchi, wheezes - Cardiovascular Cardiovascular exam: Present: RRR, +S1, +S2. Absent: diastolic murmur, gallop, rubs, systolic murmur - GI/Abdominal GI/Abdominal exam: Present: normal bowel sounds, soft, no peritoneal signs. Absent: distended, tenderness - Extremities Exam Extremities exam: Absent: pedal edema - Expanded Neurological Exam Neurological exam expanded: Absent: expressive aphasia Speech: Absent: expressive aphasia, fluid speech, stutter Cerebellar function: heel to soriano: Normal Neuro motor strength exam: LUE: 5, RUE: 5, LLE: 5, RLE: 5 - Psychiatric Psychiatric exam: Present: normal mood - Skin Skin exam: Present: normal color Internal Med - H&P Results - Labs CBC & Chem 7: 11/18/17 16:02 11/18/17 16:02
[2017-11-18] MEDS ORDERED: Naloxone 0.4 MG/ML INJ IVP PRN (21:46)
[2017-11-19 04:52] LABS: Basophils % 0.6 %; Eosinophils # 0.1 K/mcL (0.0-0.6); Eosinophils % 1.7 %; Hematocrit 34.1 % (35.3-44.9); Hemoglobin 10.7 g/dL (11.5-15.4); Immature Granulocytes % 0.6 % (0-4); Lymphocytes # 2.3 K/mcL (0.6-4.6); Lymphocytes % 31.8 %; Mean Corpuscular HGB Conc 31.4 g/dL (31.6-35.5); Mean Corpuscular Hemoglobin 26.4 pg (28.0-33.3); Mean Corpuscular Volume 84.2 fL (83.0-100.0); Mean Platelet Volume 10.7 fL (9.4-12.4); Monocytes # 0.6 K/mcL (0.0-1.3); Monocytes % 7.8 %; Neutrophils # 4.1 K/mcL (1.6-8.9); Nucleated Red Blood Cells 0.3 /100 WBC (0); Platelet Count 170 K/mcL (140-400); Red Blood Count 4.05 M/mcL (3.82-4.97); Red Cell Distribution Width 14.6 % (11.5-14.5); Segmented Neutrophils % 57.5 %
[2017-11-19 05:06] LABS: Calcium 8.6 mg/dL (8.6-10.3); Potassium 3.7 mEq/L (3.5-5.1)
[2017-11-19] MEDS ORDERED: Cholecalciferol (D-3) 1,000 UNIT TABLET PO SCH (09:00)
[2017-11-19] MEDS ORDERED: Aspirin Enteric Coated 81 MG Tablet PO SCH (09:00)
[2017-11-19 14:55] VITALS: BP 92/54
--- NOTE | 2017-11-19 15:54 | Discharge Summary ---
- NOTES TO OUTPATIENT PROVIDER Notes to Outpatient Provider: TIA with negative MRI, MRA Brain/neck. Admitted with left parietal headache, slurred speech, and altered sensation to left cheek. Symptoms resolved. Continue ASA and was started on low dose Zocor. May discuss risks/benefits of continuing statin vs discontinuation. Date of Encounter: 11/19/17 Time of Encounter: 09:25 - Discharge Diagnosis (1) CKD (chronic kidney disease) stage 3, GFR 30-59 ml/min Priority: Secondary Status: Chronic Comments: Chronic. Sr Cr and GFR at pt's baseline. Continue to avoid nephrotoxins and follow with PCP (2) TIA (transient ischemic attack) Priority: Primary Status: Acute Comments: Pt admitted with TIA symptoms which have resolved. Head CT negative, as were brain MRI and head and neck MRA. Pt has no focal deficits, strength is equal bilaterally upper and lower extremities. Speech is clear. Continue ASA and pt takes fish oil, will start on low dose statin. Pt and PCP can discuss benefits of continued therapy vs discontinuing. Qualifiers: Transient cerebral ischemia type: unspecified Qualified Code(s): G45.9 - Transient cerebral ischemic attack, unspecified (3) Crohns disease Priority: Secondary Status: Chronic Comments: Per pt history. No acute flare at this time. Qualifiers: Gastrointestinal tract location: unspecified location Digestive disease complication type: unspecified complication Qualified Code(s): K50.919 - Crohn 's disease, unspecified, with unspecified complications (4) DVT prophylaxis Priority: Secondary Status: Acute Comments: Pt has been ambulatory. Hospital course: Ms. Wilkinson is a 77 year old female - Time Spent with Patient Total time spent providing and/or coordinating discharge services: - Discharge Medications Prescriptions: Simvastatin [Zocor] 10 mg PO HS #30 tablet Home Medications: Aspirin [Lo-Dose Aspirin EC] 81 mg PO DAILY 09/12/16 [History] Brimonidine Tartrate 1 drop LEFT EYE TID 09/12/16 [History] Calcium Carb, Citrate/Vit D3 [Calcium + D3 ER Tablet] 1 tab PO DAILY 09/12/16 [ History] Cholecalciferol (D-3) [Vitamin D] 2,000 unit PO BID 09/12/16 [History] Cyanocobalamin (B-12) [Vitamin B12] 1,000 mcg IM QMONTH 09/12/16 [History] Ergocalciferol (VITAMIN D2) [Vitamin D2] 50,000 unit PO TUSA 09/12/16 [History] Lactobacillus Acidophilus [Acidophilus] 1 cap PO DAILY 09/12/16 [History] Latanoprost [Xalatan] 1 drop BOTH EYES HS 09/12/16 [History] Potassium Chloride [K-Tab ER] 20 meq PO TID 09/12/16 [History] rOPINIRole [Requip] 0.25 mg PO HS 09/12/16 [History] Cyclobenzaprine HCl 5 - 10 mg PO TID PRN #30 tablet 03/11/17 [Rx] Timolol [Betimol] 5 ml OP DAILY 11/18/17 [History] [place]-3/Dha/Epa/Fish Oil [Fish Oil 1,000 mg Softgel] 1 cap PO DAILY 11/19/17 [ History] Simvastatin [Zocor] 10 mg PO HS #30 tablet 11/19/17 [Rx] Allergies/Adverse Reactions: 3 Allergy/AdvReac Type Severity Reaction Status Date / Time iron Allergy Anaphylaxis Verified 11/19/17 08:47 [id number]-Qhe Reductase AdvReac Muscle Pain Verified 11/19/17 08:47 Inhibitor [Statins] Date of admission: 11/18/17 18:35 Primary care physician: Vasquez Morris MD Discharging clinician: Gwen Ynacey Anticipated date of discharge: 11/19/17 - Constitutional Vitals: Temp Pulse Resp BP Pulse Ox 98.0 F 71 15 92/54 95 11/19/17 14:53 11/19/17 14:53 11/19/17 14:53 11/19/17 14:53 11/19/17 14:53 General appearance: Present: cooperative, A&O X 3, pleasant, no acute distress, answers questions appropriately - Head Head exam: Present: atraumatic, normal inspection, normocephalic - Eye Eye exam: Present: normal appearance, conjuntiva pink, sclera anicteric - Neck Neck exam general surgery: Present: normal inspection, supple, trachea midline. Absent: lymphadenopathy - Respiratory Respiratory exam: Present: CTAB. Absent: accessory muscle use, rales, rhonchi, wheezes - Cardiovascular Cardiovascular exam: Present: RRR, +S1, +S2. Absent: diastolic murmur, gallop, rubs, systolic murmur - GI/Abdominal GI/Abdominal exam: Present: normal bowel sounds, soft. Absent: distended, hepatomegaly, tenderness - Extremities Exam Extremities exam: Present: normal capillary refill, normal inspection, warm, radial pulses palpable and symmetrical. Absent: calf tenderness, cyanotic, pedal edema, tenderness - Neurological Exam Neurological exam: Present: alert, oriented X3, no focal deficits, strengths equal and symetr throughout. Absent: altered, motor sensory deficit, facial droop, speech deficit - Skin Skin exam: Present: dry, intact, normal color, warm. Absent: rash - Patient Status Disposition: Home, Self-Care Condition: Good Functional capacity at discharge: independent ambulation Overall status at discharge: patient is back to baseline - Discharge Instructions Follow Up With: Vasquez Morris MD [Primary Care Provider] - Additional Instructions: Please follow up with Dr. Morris in the next 7-10 days for a recheck. REturn to the ER as needed for any other problems or concerns, or if your symptoms return or worsen. I have called in a prescription for a cholesterol medicine to your pharmacy. Continue to take your aspirin. Resume your other home medications and activities as tolerated. - Diet and Activity Activity: increase activity as tolerated Diet: advance to your usual diet
--- NOTE | 2017-11-19 16:43 | Electrocardiograph Report ---
[address] [address] Test Date: 2017-11-18 Pat Name: Elyssa Wilkinson Department: 103 Room: 3B24 Gender: F Rod [employer] Tender: : 1940 Requested By: Sam Reyes Order Number: [id number] Reading MD: Barry Cowan Measurements Intervals [place] Rate: 62 P: 48 WV: 179 QRS: 53 QRSD: 97 T: 42 QT: 417 QTc: 422 Interpretive Statements SINUS RHYTHM WITH OCCASIONAL VENTRICULAR PREMATURE COMPLEXES Electronically Signed On 11-19-2017 16:42:04 EDT by Barry Cowan
== END 2017-11-19 18:30 | disposition home or self-care (01) ==
LOC: EMEROO 15:30 → 3BNU 15:30
PROVIDERS: ADMIT Hospitalist; ATTEND Registered Nurse

== ENCOUNTER 2021-08-18 13:39 | Inpatient (IN) ==
[2021-08-18 16:00] LABS: Influenza A PCR Negative (Negative); Influenza B PCR Negative (Negative); Resp. Syncytial Virus PCR Negative (Negative)
[2021-08-18 16:01] LABS: SARS-CoV-2 by PCR (In House) Negative (Negative)
[2021-08-18] MEDS ORDERED: 0.9 % Sodium Chloride 1,000 ML IVC ONE ×2 (16:51→18:16)
[2021-08-18] MEDS ORDERED: Ondansetron 4 MG/2 ML VIAL IVP ONE (16:51)
[2021-08-18 16:54] LABS: Amorphous Sediment,Urine Few per hpf (None-Few); Bacteria,Urine Few per hpf (None-Few); Bilirubin,Urine Negative (Negative); Blood,Urine Small (Negative); Clarity,Urine Turbid (Clear); Color,Urine Light-Yellow (Yellow); Glucose,Urine (UA) Normal (Normal); Hyaline Casts,Urine Few per lpf (None Seen); Ketones,Urine Negative (Negative); Leukocyte Esterase,Urine Moderate (Negative); Mucus,Urine Few per lpf (None-Few); Nitrite,Urine Negative (Negative); Protein,Urine 100 mg/dL (Neg-Trace); Specific Gravity,Urine 1.016 (1.010-1.025); Squamous Epithelial Cell,Urine Moderate per hpf (None-Few); Urobilinogen,Urine Normal (Normal); WBC,Urine 15-30 per hpf (0-3)
[2021-08-18] MEDS ORDERED: cefTRIAXone 1,000 MG in Water for inj. (sterile) 10 ML IVP ONE (17:12)
[2021-08-18 17:25] LABS: Basophils # 0.1 K/mcL (0.0-0.2); Basophils % 0.7 %; Eosinophils # 0.1 K/mcL (0.0-0.6); Eosinophils % 1.2 %; Hematocrit 39.5 % (35.3-44.9); Hemoglobin 12.8 g/dL (11.5-15.4); Immature Granulocytes % 0.2 % (0-4); Lymphocytes # 2.7 K/mcL (0.6-4.6); Lymphocytes % 30.9 %; Mean Corpuscular HGB Conc 32.4 g/dL (31.6-35.5); Mean Corpuscular Hemoglobin 27.4 pg (28.0-33.3); Mean Corpuscular Volume 84.4 fL (83.0-100.0); Mean Platelet Volume 10.9 fL (9.4-12.4); Monocytes # 0.7 K/mcL (0.0-1.3); Monocytes % 7.6 %; Neutrophils # 5.1 K/mcL (1.6-8.9); Platelet Count 180 K/mcL (140-400); Red Blood Count 4.68 M/mcL (3.82-4.97); Red Cell Distribution Width 15.2 % (11.5-14.5); Segmented Neutrophils % 59.4 %; White Blood Count 8.6 K/mcL (4.3-11.1)
[2021-08-18 18:04] LABS: Alanine Aminotransferase 14 Units/L (7-52); Albumin 4.5 g/dL (3.5-5.7); Albumin/Globulin Ratio 1.6 (1.1-2.2); Alkaline Phosphatase 94 Units/L (34-104); Aspartate Amino Transferase 16 Units/L (13-39); BUN/Creatinine Ratio 11 (6-26); Bilirubin,Total 0.6 mg/dL (0.3-1.0); Blood Urea Nitrogen 59 mg/dL (8-23); Calcium 7.1 mg/dL (8.6-10.3); Carbon Dioxide 7 mEq/L (23-29); Chloride 113 mEq/L (98-107); Globulin 2.9 g/dL (2.4-3.5); Glucose 79 mg/dL (70-105); Lipase 265 Units/L (11-82); Magnesium 1.1 mg/dL (1.6-2.6); Osmolality,Calculated 301 (280-300); Sodium 138 mEq/L (136-145); Total Protein 7.4 g/dL (6.4-8.9); Troponin I < 0.03 ng/mL (< 0.04); eGFR For African Americans 9 (> 60); eGFR For Non-African Americans 8 (> 60)
[2021-08-18] MEDS ORDERED: Ringers Solution, Lactated 1,000 ML IVC ONE (18:46)
[2021-08-18] MEDS ORDERED: Acetaminophen 325 MG TABLET PO PRN (19:58)
[2021-08-18] MEDS ORDERED: Naloxone 0.4 MG/ML INJ IVP PRN (19:58)
[2021-08-18] MEDS ORDERED: *HR* OxyCODONE Immed Rel 5 MG TABLET PO PRN (19:58)
[2021-08-18] MEDS ORDERED: *HR* Promethazine 25 MG/ML VIAL IM PRN (19:58)
[2021-08-18] MEDS ORDERED: Melatonin 3 MG TABLET PO PRN (19:58)
[2021-08-18] MEDS ORDERED: Magnesium Sulfate 1 GM/102 ML PIGGYBACK IVPB ONE (19:58)
[2021-08-18] MEDS ORDERED: Ondansetron 4 MG/2 ML VIAL IVP PRN (19:58)
[2021-08-18] MEDS ORDERED: *HR* HYDROcodone/Acet 5/325 mg TABLET PO PRN (19:58)
[2021-08-18] MEDS: Sodium Bicarbonate 150 MEQ in Water for inj. (sterile) 1,000 ML IVC SCH (21:02)
[2021-08-18 23:22] LABS: VBG HCO3 5 mEq/L (21-27); VBG PCO2 16 mmHg (41-51); VBG PH 7.12 pH Units (7.32-7.42); VBG PO2 59 mmHg (25-50)
[2021-08-19] MEDS: *HR* Heparin 5,000 UNIT/ML VIAL SQ SCH ×3 (05:58→20:56)
[2021-08-19] MEDS: Sodium Bicarbonate 150 MEQ in Water for inj. (sterile) 1,000 ML IVC SCH ×3 (05:59→10:13)
[2021-08-19 06:47] LABS: VBG HCO3 7 mEq/L (21-27); VBG PCO2 15 mmHg (41-51); VBG PH 7.28 pH Units (7.32-7.42); VBG PO2 107 mmHg (25-50)
[2021-08-19 07:02] LABS: Basophils # 0.1 K/mcL (0.0-0.2); Basophils % 0.8 %; Eosinophils # 0.1 K/mcL (0.0-0.6); Eosinophils % 1.3 %; Immature Granulocytes % 0.4 % (0-4); Lymphocytes # 2.1 K/mcL (0.6-4.6); Lymphocytes % 27.2 %; Mean Corpuscular HGB Conc 30.9 g/dL (31.6-35.5); Mean Corpuscular Hemoglobin 26.6 pg (28.0-33.3); Mean Platelet Volume 10.9 fL (9.4-12.4); Monocytes # 0.6 K/mcL (0.0-1.3); Monocytes % 8.2 %; Neutrophils # 4.8 K/mcL (1.6-8.9); Platelet Count 146 K/mcL (140-400); Red Blood Count 3.72 M/mcL (3.82-4.97); Segmented Neutrophils % 62.1 %; White Blood Count 7.8 K/mcL (4.3-11.1)
[2021-08-19 07:12] LABS: Hemoglobin 9.9 g/dL (11.5-15.4)
[2021-08-19 07:20] LABS: INR 1.1; Prothrombin Time 12.4 Seconds (9.4-12.1)
[2021-08-19 07:43] LABS: Albumin 3.5 g/dL (3.5-5.7); Albumin/Globulin Ratio 1.6 (1.1-2.2); Bilirubin,Total 0.5 mg/dL (0.3-1.0); Calcium 6.3 mg/dL (8.6-10.3); Globulin 2.2 g/dL (2.4-3.5); Magnesium 1.2 mg/dL (1.6-2.6); Potassium 2.8 mEq/L (3.5-5.1); Total Protein 5.7 g/dL (6.4-8.9)
[2021-08-19 08:27] LABS: ABG Base Excess -18 mEq/L (-2 to 3); ABG HCO3 7 mEq/L (21-27); ABG Oxygen Saturation 97 % (95-98); ABG PCO2 14 mmHg (35-45); ABG PH 7.28 pH Units (7.32-7.45); ABG PO2 100 mmHg (85-104); ABG TCO2 7 mEq/L (20-26)
[2021-08-19] MEDS: Aspirin Enteric Coated 81 MG Tablet PO SCH (08:28)
[2021-08-19] MEDS ORDERED: *HR* Dextrose 50 % in Water (Syg) 50 ML SYRINGE IVP PRN (08:40)
[2021-08-19] MEDS ORDERED: D5% in Water 1,000 ML IVC PRN (08:40)
[2021-08-19] MEDS ORDERED: Dextrose Gel 15 GM/37.5 ML TUBE PO PRN ×2 (08:40)
[2021-08-19] MEDS: Insulin LISPRO 300 UNITS/3 ML VIAL SUBQ SCH ×2 (12:38→18:34)
[2021-08-19 15:51] LABS: Calcium 6.4 mg/dL (8.6-10.3); Potassium 2.5 mEq/L (3.5-5.1)
[2021-08-19] MEDS ORDERED: Potassium Chloride Elixir 20 MEQ/15 ML UDC PO ONE (15:56)
[2021-08-19] MEDS: Sodium Bicarbonate 150 MEQ in 0.45 % Sodium Chloride 1,000 ML IVC SCH (16:05)
[2021-08-19] MEDS ORDERED: cefTRIAXone 1,000 MG in Water for inj. (sterile) 10 ML IVP SCH (18:00)
[2021-08-19 20:33] LABS: Calcium 6.5 mg/dL (8.6-10.3); Potassium 2.8 mEq/L (3.5-5.1)
[2021-08-19] MEDS: Latanoprost 2.5 ML BOTTLE BOTH EYES SCH (20:57)
[2021-08-20] MEDS: Insulin LISPRO 300 UNITS/3 ML VIAL SUBQ SCH ×4 (01:15→17:32)
[2021-08-20 01:33] LABS: Basophils % 0.5 %; Eosinophils # 0.1 K/mcL (0.0-0.6); Eosinophils % 1.9 %; Hematocrit 25.7 % (35.3-44.9); Hemoglobin 8.4 g/dL (11.5-15.4); Immature Granulocytes % 0.2 % (0-4); Lymphocytes # 1.6 K/mcL (0.6-4.6); Lymphocytes % 28.3 %; Mean Corpuscular HGB Conc 32.7 g/dL (31.6-35.5); Mean Corpuscular Hemoglobin 27.2 pg (28.0-33.3); Mean Corpuscular Volume 83.2 fL (83.0-100.0); Mean Platelet Volume 11.6 fL (9.4-12.4); Monocytes # 0.5 K/mcL (0.0-1.3); Monocytes % 8.3 %; Neutrophils # 3.4 K/mcL (1.6-8.9); Platelet Count 130 K/mcL (140-400); Red Blood Count 3.09 M/mcL (3.82-4.97); Red Cell Distribution Width 14.7 % (11.5-14.5); Segmented Neutrophils % 60.8 %; White Blood Count 5.7 K/mcL (4.3-11.1)
[2021-08-20 01:48] LABS: Calcium 6.2 mg/dL (8.6-10.3); Magnesium 1.6 mg/dL (1.6-2.6); Phosphorous 2.8 mg/dL (2.7-4.5); Potassium 2.9 mEq/L (3.5-5.1)
[2021-08-20] MEDS: Sodium Bicarbonate 150 MEQ in 0.45 % Sodium Chloride 1,000 ML IVC SCH (03:38)
[2021-08-20] MEDS: *HR* Heparin 5,000 UNIT/ML VIAL SQ SCH ×3 (05:21→20:01)
[2021-08-20 06:37] LABS: Protein/Creatinine Ratio,Urine 0.57 mg/mg (0.00-0.20); Sodium, Urine 41.5 mEq/L
[2021-08-20] MEDS: Aspirin Enteric Coated 81 MG Tablet PO SCH (09:49)
[2021-08-20] MEDS: Latanoprost 2.5 ML BOTTLE BOTH EYES SCH ×2 (09:50→19:51)
[2021-08-20] MEDS ORDERED: Isovue-300 50ML VIAL ONE (14:11)
[2021-08-20] MEDS ORDERED: Ondansetron 4 MG/2 ML VIAL IVP PRN (15:35)
[2021-08-20] MEDS ORDERED: *HR* FentaNYL (PF) 100 MCG/2 ML VIAL IVP PRN (15:35)
[2021-08-20] MEDS ORDERED: Ondansetron 4 MG/2 ML VIAL ONE (15:55)
[2021-08-20] MEDS ORDERED: Lidocaine -MPF 2% 5 ML VIAL ONE (15:55)
[2021-08-20] MEDS ORDERED: *HR* Propofol 200 MG/20 ML VIAL IVP ONE (15:55)
[2021-08-20] MEDS ORDERED: *HR* Succinylcholine 200 MG/10 ML VIAL IVP ONE (16:38)
[2021-08-20] MEDS ORDERED: Dextrose Gel 15 GM/37.5 ML TUBE PO PRN ×2 (17:14)
[2021-08-20] MEDS ORDERED: Acetaminophen 325 MG TABLET PO PRN (17:14)
[2021-08-20] MEDS ORDERED: *HR* OxyCODONE Immed Rel 5 MG TABLET PO PRN (17:14)
[2021-08-20] MEDS ORDERED: *HR* Promethazine 25 MG/ML VIAL IM PRN (17:14)
[2021-08-20] MEDS ORDERED: *HR* Dextrose 50 % in Water (Syg) 50 ML SYRINGE IVP PRN (17:14)
[2021-08-20] MEDS ORDERED: Naloxone 0.4 MG/ML INJ IVP PRN (17:14)
[2021-08-20] MEDS ORDERED: *HR* HYDROcodone/Acet 5/325 mg TABLET PO PRN (17:14)
[2021-08-20] MEDS ORDERED: Melatonin 3 MG TABLET PO PRN (17:14)
[2021-08-20] MEDS ORDERED: D5% in Water 1,000 ML IVC PRN (17:14)
[2021-08-20] MEDS: cefTRIAXone 1,000 MG in Water for inj. (sterile) 10 ML IVP SCH (17:32)
[2021-08-20] MEDS ORDERED: *HR* Heparin 5,000 UNIT/ML VIAL ONE (19:58)
[2021-08-21] MEDS: Insulin LISPRO 300 UNITS/3 ML VIAL SUBQ SCH ×3 (00:33→11:29)
[2021-08-21] MEDS: *HR* Heparin 5,000 UNIT/ML VIAL SQ SCH ×3 (05:15→20:33)
[2021-08-21 05:50] LABS: Basophils % 0.7 %; Eosinophils # 0.1 K/mcL (0.0-0.6); Eosinophils % 1.3 %; Hematocrit 26.1 % (35.3-44.9); Hemoglobin 8.5 g/dL (11.5-15.4); Immature Granulocytes % 0.3 % (0-4); Lymphocytes # 1.6 K/mcL (0.6-4.6); Lymphocytes % 25.6 %; Mean Corpuscular HGB Conc 32.6 g/dL (31.6-35.5); Mean Corpuscular Hemoglobin 27.5 pg (28.0-33.3); Mean Corpuscular Volume 84.5 fL (83.0-100.0); Mean Platelet Volume 11.5 fL (9.4-12.4); Monocytes # 0.6 K/mcL (0.0-1.3); Monocytes % 10.6 %; Neutrophils # 3.7 K/mcL (1.6-8.9); Platelet Count 121 K/mcL (140-400); Red Blood Count 3.09 M/mcL (3.82-4.97); Segmented Neutrophils % 61.5 %; White Blood Count 6.1 K/mcL (4.3-11.1)
[2021-08-21 06:30] LABS: Calcium 6.4 mg/dL (8.6-10.3); Magnesium 1.5 mg/dL (1.6-2.6); Phosphorous 2.6 mg/dL (2.7-4.5); Potassium 3.1 mEq/L (3.5-5.1)
[2021-08-21] MEDS: Aspirin Enteric Coated 81 MG Tablet PO SCH (07:52)
[2021-08-21] MEDS ORDERED: Potassium Phosphate 44 MEQ in 0.9 % Sodium Chloride 250 ML IVPB ONE (08:05)
[2021-08-21] MEDS: Latanoprost 2.5 ML BOTTLE BOTH EYES SCH ×2 (08:07→20:45)
[2021-08-21] MEDS: Sodium Bicarbonate 75 MEQ in 0.45 % Sodium Chloride 1,000 ML IVC SCH (13:28)
[2021-08-21] MEDS: cefTRIAXone 1,000 MG in Water for inj. (sterile) 10 ML IVP SCH (16:55)
[2021-08-22] MEDS: Sodium Bicarbonate 75 MEQ in 0.45 % Sodium Chloride 1,000 ML IVC SCH (01:51)
[2021-08-22 05:31] LABS: BUN/Creatinine Ratio 11 (6-26); Blood Urea Nitrogen 30 mg/dL (8-23); Calcium 6.4 mg/dL (8.6-10.3); Carbon Dioxide 18 mEq/L (23-29); Chloride 107 mEq/L (98-107); Glucose 79 mg/dL (70-105); Iron 19 mcg/dL (50-170); Magnesium 2.1 mg/dL (1.6-2.6); Osmolality,Calculated 297 (280-300); Phosphorous 3.4 mg/dL (2.7-4.5); Potassium 3.2 mEq/L (3.5-5.1); Sodium 141 mEq/L (136-145); eGFR For African Americans 19 (> 60); eGFR For Non-African Americans 16 (> 60)
[2021-08-22] MEDS: *HR* Heparin 5,000 UNIT/ML VIAL SQ SCH ×2 (06:43→14:02)
[2021-08-22 07:55] LABS: Hematocrit 27.4 % (35.3-44.9); Hemoglobin 8.5 g/dL (11.5-15.4); Platelet Count 109 K/mcL (140-400); Red Blood Count 3.15 M/mcL (3.82-4.97); Red Cell Distribution Width 14.9 % (11.5-14.5)
[2021-08-22] MEDS: Aspirin Enteric Coated 81 MG Tablet PO SCH (08:38)
[2021-08-22] MEDS: Latanoprost 2.5 ML BOTTLE BOTH EYES SCH (08:39)
[2021-08-22 12:02] VITALS: BP 111/60; PULSE 64; TEMP 98.7; O2SAT 93
[2021-08-22] MEDS ORDERED: Calcium Gluconate 1gm/50mL 1 GM/50 ML BAG IVPB ONE (13:00)
[2021-08-22 13:33] LABS: Adenovirus Not Detected (Not Detect); Bordetella Pertussis Not Detected (Not Detect); Chlamydophila pneumoniae Not Detected (Not Detect); Coronavirus 229E Not Detected (Not Detect); Coronavirus HKU1 Not Detected (Not Detect); Coronavirus NL63 Not Detected (Not Detect); Coronavirus OC43 Not Detected (Not Detect); Human Metapneumovirus Not Detected (Not Detect); Human Rhinovirus/Enterovirus Not Detected (Not Detect); Influenza A Subtype 2009 H1 Not Detected (Not Detect); Influenza B Not Detected (Not Detect); Mycoplasma pneumoniae Not Detected (Not Detect); Parainfluenza Virus 1 Not Detected (Not Detect); Parainfluenza Virus 2 Not Detected (Not Detect); Parainfluenza Virus 3 Not Detected (Not Detect); Parainfluenza Virus 4 Not Detected (Not Detect); Respiratory Syncytial Virus Not Detected (Not Detect); SARS-CoV-2 Not Detected (Not Detect)
== END 2021-08-22 15:11 | DRG 660 ==
LOC: 2ANU 13:39 → EMEROOARM 13:39 → SUATTDRO 21:20 → 2ANU 21:26
PROVIDERS: ADMIT Internal Medicine; ATTEND Family Medicine

== ENCOUNTER 2021-09-06 16:59 | Inpatient (IN) ==
[2021-09-06] MEDS ORDERED: 0.9 % Sodium Chloride 500 ML IVC ONE ×3 (17:33→23:54)
[2021-09-06 18:09] LABS: Alanine Aminotransferase 16 Units/L (7-52); Albumin/Globulin Ratio 1.1 (1.1-2.2); Alkaline Phosphatase 79 Units/L (34-104); Aspartate Amino Transferase 13 Units/L (13-39); Bilirubin,Direct 0.1 mg/dL (0.0-0.2); Bilirubin,Indirect 0.3 mg/dL (0.0-1.0); Bilirubin,Total 0.4 mg/dL (0.3-1.0); Blood Urea Nitrogen > 130 mg/dL (8-23); Calcium 9.3 mg/dL (8.6-10.3); Carbon Dioxide 10 mEq/L (23-29); Chloride 105 mEq/L (98-107); Globulin 3.7 g/dL (2.4-3.5); Glucose 105 mg/dL (70-105); Sodium 136 mEq/L (136-145); Total Protein 7.7 g/dL (6.4-8.9); Troponin I < 0.03 ng/mL (< 0.04); eGFR For African Americans 7 (> 60); eGFR For Non-African Americans 6 (> 60)
[2021-09-06] MEDS ORDERED: 0.9 % Sodium Chloride 1,000 ML IVC ONE (18:14)
[2021-09-06 18:15] LABS: Bacteria,Urine Few per hpf (None-Few); Bilirubin,Urine Negative (Negative); Blood,Urine Large (Negative); Clarity,Urine Turbid (Clear); Color,Urine Yellow (Yellow); Glucose,Urine (UA) Normal (Normal); Hyaline Casts,Urine Few per lpf (None Seen); Ketones,Urine Negative (Negative); Leukocyte Esterase,Urine Large (Negative); Mucus,Urine Few per lpf (None-Few); Nitrite,Urine Negative (Negative); PH,Urine 5.5 pH Units (5.0-8.0); Protein,Urine 70 mg/dL (Neg-Trace); RBC,Urine 30-50 per hpf (0-3); Specific Gravity,Urine 1.017 (1.010-1.025); Squamous Epithelial Cell,Urine Few per hpf (None-Few); Urobilinogen,Urine Normal (Normal); WBC,Urine 50-100 per hpf (0-3)
[2021-09-06] MEDS ORDERED: cefTRIAXone 1,000 MG in Water for inj. (sterile) 10 ML IVP ONE (18:25)
[2021-09-06] MEDS ORDERED: Sodium Bicarbonate 75 MEQ in 0.45 % Sodium Chloride 1,000 ML IVC SCH (18:30)
[2021-09-06 19:32] LABS: VBG HCO3 7 mEq/L (21-27); VBG PCO2 18 mmHg (41-51); VBG PH 7.18 pH Units (7.32-7.42); VBG PO2 161 mmHg (25-50)
[2021-09-06 20:40] LABS: Basophils # 0.1 K/mcL (0.0-0.2); Basophils % 0.4 %; Eosinophils % 0.2 %; Hematocrit 41.1 % (35.3-44.9); Hemoglobin 12.3 g/dL (11.5-15.4); Lymphocytes # 1.6 K/mcL (0.6-4.6); Lymphocytes % 11.4 %; Mean Corpuscular HGB Conc 29.9 g/dL (31.6-35.5); Mean Corpuscular Hemoglobin 26.5 pg (28.0-33.3); Mean Corpuscular Volume 88.6 fL (83.0-100.0); Mean Platelet Volume 11.1 fL (9.4-12.4); Monocytes # 0.8 K/mcL (0.0-1.3); Monocytes % 5.8 %; Neutrophils # 11.4 K/mcL (1.6-8.9); Platelet Count 343 K/mcL (140-400); Red Blood Count 4.64 M/mcL (3.82-4.97); Red Cell Distribution Width 14.2 % (11.5-14.5); Segmented Neutrophils % 81.2 %
[2021-09-06] MEDS: Sodium Bicarbonate 75 MEQ in 0.45 % Sodium Chloride 1,000 ML IVC SCH (20:53)
[2021-09-06] MEDS ORDERED: Naloxone 0.4 MG/ML INJ IVP PRN (22:22)
[2021-09-07 00:52] LABS: Basophils # 0.1 K/mcL (0.0-0.2); Basophils % 0.5 %; Eosinophils % 0.3 %; Hematocrit 40.9 % (35.3-44.9); Hemoglobin 11.9 g/dL (11.5-15.4); Lymphocytes # 1.5 K/mcL (0.6-4.6); Lymphocytes % 12.3 %; Mean Corpuscular HGB Conc 29.1 g/dL (31.6-35.5); Mean Corpuscular Hemoglobin 26.9 pg (28.0-33.3); Mean Corpuscular Volume 92.3 fL (83.0-100.0); Mean Platelet Volume 11.1 fL (9.4-12.4); Monocytes # 0.9 K/mcL (0.0-1.3); Monocytes % 7.1 %; Neutrophils # 9.7 K/mcL (1.6-8.9); Platelet Count 287 K/mcL (140-400); Red Blood Count 4.43 M/mcL (3.82-4.97); Red Cell Distribution Width 14.1 % (11.5-14.5); Segmented Neutrophils % 78.8 %; White Blood Count 12.3 K/mcL (4.3-11.1)
[2021-09-07 01:14] LABS: Calcium 8.5 mg/dL (8.6-10.3); Magnesium 1.8 mg/dL (1.6-2.6); Phosphorous 8.2 mg/dL (2.7-4.5); Potassium 4.7 mEq/L (3.5-5.1)
[2021-09-07 01:20] LABS: INR 1.2; Prothrombin Time 12.9 Seconds (9.4-12.1)
[2021-09-07 01:26] LABS: Thyroid Stimulating Hormone 5.251 mcIU/mL (0.340-5.600)
[2021-09-07] MEDS: *HR* Heparin 5,000 UNIT/ML VIAL SQ SCH ×2 (05:44→16:36)
[2021-09-07] MEDS: Sodium Bicarbonate 75 MEQ in 0.45 % Sodium Chloride 1,000 ML IVC SCH (10:04)
[2021-09-07 12:26] LABS: Calcium 8.3 mg/dL (8.6-10.3); Potassium 4.1 mEq/L (3.5-5.1)
[2021-09-07 12:27] LABS: Uric Acid 14.5 mg/dL (2.3-7.6)
[2021-09-07 12:40] LABS: Hepatitis B Surface Antigen Nonreactive (Nonreactive)
[2021-09-07 13:07] LABS: Hepatitis B Core IgM Nonreactive (Nonreactive)
[2021-09-07 13:08] LABS: Hepatitis A Antibody IgM Nonreactive (Nonreactive); Hepatitis C Virus Antibody Nonreactive (Nonreactive)
[2021-09-07] MEDS: Sodium Bicarbonate 150 MEQ in D5% in Water 1,000 ML IVC SCH (15:54)
[2021-09-07 21:13] LABS: Protein/Creatinine Ratio,Urine 1.42 mg/mg (0.00-0.20)
[2021-09-07 22:18] LABS: Potassium,Urine 41.5 mEq/L; Sodium, Urine 44.6 mEq/L
[2021-09-08 02:38] LABS: Hematocrit 35.1 % (35.3-44.9); Hemoglobin 10.5 g/dL (11.5-15.4); Mean Corpuscular HGB Conc 29.9 g/dL (31.6-35.5); Mean Corpuscular Hemoglobin 26.4 pg (28.0-33.3); Mean Corpuscular Volume 88.2 fL (83.0-100.0); Mean Platelet Volume 11.7 fL (9.4-12.4); Platelet Count 241 K/mcL (140-400); Red Blood Count 3.98 M/mcL (3.82-4.97); White Blood Count 11.3 K/mcL (4.3-11.1)
[2021-09-08 02:59] LABS: Calcium 7.7 mg/dL (8.6-10.3); Phosphorous 4.5 mg/dL (2.7-4.5)
[2021-09-08] MEDS: Sodium Bicarbonate 150 MEQ in D5% in Water 1,000 ML IVC SCH ×2 (03:29→21:46)
[2021-09-08] MEDS: *HR* Heparin 5,000 UNIT/ML VIAL SQ SCH ×2 (05:35→16:55)
[2021-09-08] MEDS: Latanoprost 2.5 ML BOTTLE BOTH EYES SCH ×2 (10:35→21:47)
[2021-09-08] MEDS: Acetaminophen 325 MG TABLET PO PRN (14:59)
[2021-09-09] MEDS: *HR* Heparin 5,000 UNIT/ML VIAL SQ SCH ×2 (05:38→18:44)
[2021-09-09] MEDS: Acetaminophen 325 MG TABLET PO PRN (05:39)
[2021-09-09] MEDS: Latanoprost 2.5 ML BOTTLE BOTH EYES SCH ×2 (07:34→21:37)
[2021-09-09 08:51] LABS: Hematocrit 28.9 % (35.3-44.9); Mean Corpuscular HGB Conc 31.1 g/dL (31.6-35.5); Mean Corpuscular Volume 86.8 fL (83.0-100.0); Mean Platelet Volume 12.2 fL (9.4-12.4); Platelet Count 163 K/mcL (140-400); Red Blood Count 3.33 M/mcL (3.82-4.97); Red Cell Distribution Width 13.8 % (11.5-14.5); White Blood Count 5.8 K/mcL (4.3-11.1)
[2021-09-09 09:19] LABS: Calcium 6.9 mg/dL (8.6-10.3); Potassium 2.3 mEq/L (3.5-5.1)
[2021-09-09] MEDS ORDERED: 0.9 % Sodium Chloride 500 ML IVC ONE ×2 (13:00→15:24)
[2021-09-09 21:40] LABS: Calcium 6.7 mg/dL (8.6-10.3); Potassium 2.7 mEq/L (3.5-5.1)
[2021-09-10] MEDS ORDERED: 0.9 % Sodium Chloride 500 ML IV ONE (00:11)
[2021-09-10 06:04] LABS: Calcium 6.7 mg/dL (8.6-10.3); Potassium 2.6 mEq/L (3.5-5.1)
[2021-09-10] MEDS ORDERED: Ringers Solution, Lactated 500 ML IVC ONE (06:22)
[2021-09-10] MEDS: *HR* Heparin 5,000 UNIT/ML VIAL SQ SCH ×2 (06:48→17:15)
[2021-09-10] MEDS ORDERED: 0.9 % Sodium Chloride 1,000 ML IVC ONE (08:05)
[2021-09-10] MEDS ORDERED: levoFLOXacin 500 MG/100 ML 500 MG/100 ML BAG IVPB ONE (08:07)
[2021-09-10] MEDS: Latanoprost 2.5 ML BOTTLE BOTH EYES SCH ×2 (08:27→21:24)
[2021-09-10] MEDS ORDERED: Vancomycin 1,250 MG/262.5 ML IV.SOLN IVPB ONE (09:00)
[2021-09-10] MEDS: Calcium Gluconate 1gm/50mL 1 GM/50 ML BAG IVPB SCH ×2 (12:58→14:31)
[2021-09-10 16:39] LABS: Campylobacter by PCR Not detected (Not detect)
[2021-09-10 16:43] LABS: Adenovirus F 40/41 PCR Not detected (Not detect); Astrovirus PCR Not detected (Not detect); C.difficile Toxin A/B Gene PCR DETECTED (Not detect); Cryptosporidium by PCR Not detected (Not detect); Cyclospora cayetanensis PCR Not detected (Not detect); E. coli O157 by PCR Not detected (Not detect); Entamoeba histolytica PCR Not detected (Not detect); Enteroaggregative E.coli(EAEC) Not detected (Not detect); Enteropathogenic E.coli(EPEC) Not detected (Not detect); Enterotoxigenic E.coli (ETEC) Not detected (Not detect); Giardia lamblia PCR Not detected (Not detect); Norovirus GI/GII PCR Not detected (Not detect); Plesiomonas shigelloides PCR Not detected (Not detect); Rotavirus A PCR Not detected (Not detect); Salmonella PCR Not detected (Not detect); Sapovirus PCR Not detected (Not detect); Shig/EnteroinvasiveE coli EIEC Not detected (Not detect); Shigalike tox-prod E coli STEC Not detected (Not detect); Vibrio PCR Not detected (Not detect); Vibrio cholerae PCR Not detected (Not detect); Yersinia enterocolitica PCR Not detected (Not detect)
[2021-09-10] MEDS: Ringers Solution, Lactated 1,000 ML IVC SCH (20:19)
[2021-09-10] MEDS: Potassium Chloride Elixir 20 MEQ/15 ML UDC PO SCH (20:20)
[2021-09-10] MEDS: Vancomycin Oral Soln 125 MG/2.5 ML UDC PO SCH (20:21)
[2021-09-10 20:37] LABS: Calcium 6.8 mg/dL (8.6-10.3); Potassium 2.9 mEq/L (3.5-5.1)
[2021-09-11 02:26] LABS: Hematocrit 30.3 % (35.3-44.9); Hemoglobin 8.8 g/dL (11.5-15.4); Mean Corpuscular Hemoglobin 26.4 pg (28.0-33.3); Mean Platelet Volume 11.7 fL (9.4-12.4); Platelet Count 128 K/mcL (140-400); Red Blood Count 3.33 M/mcL (3.82-4.97); Red Cell Distribution Width 13.7 % (11.5-14.5); White Blood Count 5.6 K/mcL (4.3-11.1)
[2021-09-11 02:34] LABS: Calcium 6.9 mg/dL (8.6-10.3); Magnesium 1.1 mg/dL (1.6-2.6); Potassium 3.3 mEq/L (3.5-5.1)
[2021-09-11] MEDS: *HR* Heparin 5,000 UNIT/ML VIAL SQ SCH ×2 (06:04→17:50)
[2021-09-11] MEDS: Acetaminophen 325 MG TABLET PO PRN (06:13)
[2021-09-11] MEDS: Ringers Solution, Lactated 1,000 ML IVC SCH (06:13)
[2021-09-11] MEDS: Latanoprost 2.5 ML BOTTLE BOTH EYES SCH ×2 (08:12→21:22)
[2021-09-11] MEDS: Potassium Chloride Elixir 20 MEQ/15 ML UDC PO SCH ×2 (08:13→21:10)
[2021-09-11] MEDS: Vancomycin Oral Soln 125 MG/2.5 ML UDC PO SCH ×4 (08:13→21:10)
[2021-09-11] MEDS: Albumin 25% 25gram/100mL 25 GM/100 ML IV.SOLN IVPB SCH ×2 (13:51→17:42)
[2021-09-11] MEDS: Magnesium Oxide 400 MG TABLET PO SCH (21:07)
[2021-09-12] MEDS: *HR* Heparin 5,000 UNIT/ML VIAL SQ SCH ×2 (06:05→17:22)
[2021-09-12] MEDS: Magnesium Oxide 400 MG TABLET PO SCH ×2 (07:33→20:17)
[2021-09-12] MEDS: Potassium Chloride Elixir 20 MEQ/15 ML UDC PO SCH ×2 (07:33→21:34)
[2021-09-12] MEDS: Vancomycin Oral Soln 125 MG/2.5 ML UDC PO SCH (07:33)
[2021-09-12] MEDS: Latanoprost 2.5 ML BOTTLE BOTH EYES SCH ×2 (07:35→20:24)
[2021-09-12] MEDS: Acetaminophen 325 MG TABLET PO PRN ×3 (07:41→22:32)
[2021-09-12 09:22] LABS: Hemoglobin 9.3 g/dL (11.5-15.4); Mean Corpuscular HGB Conc 29.1 g/dL (31.6-35.5); Mean Corpuscular Hemoglobin 26.5 pg (28.0-33.3); Mean Corpuscular Volume 91.2 fL (83.0-100.0); Platelet Count 138 K/mcL (140-400); Red Blood Count 3.51 M/mcL (3.82-4.97); Red Cell Distribution Width 13.7 % (11.5-14.5); White Blood Count 7.7 K/mcL (4.3-11.1)
[2021-09-12 09:41] LABS: Calcium 7.6 mg/dL (8.6-10.3); Potassium 3.2 mEq/L (3.5-5.1)
[2021-09-12] MEDS: Nitrofurantoin (BID) 100 MG CAPSULE PO SCH ×2 (11:48→17:21)
[2021-09-12] MEDS: metroNIDAZOLE 500 MG TABLET PO SCH ×3 (11:48→20:18)
[2021-09-13 02:17] LABS: Calcium 7.8 mg/dL (8.6-10.3); Magnesium 1.2 mg/dL (1.6-2.6); Phosphorous 1.5 mg/dL (2.7-4.5); Potassium 3.4 mEq/L (3.5-5.1)
[2021-09-13 02:36] LABS: Hematocrit 34.8 % (35.3-44.9); Hemoglobin 10.2 g/dL (11.5-15.4); Mean Corpuscular HGB Conc 29.3 g/dL (31.6-35.5); Mean Corpuscular Hemoglobin 26.8 pg (28.0-33.3); Mean Corpuscular Volume 91.6 fL (83.0-100.0); Platelet Count 151 K/mcL (140-400); Red Cell Distribution Width 13.7 % (11.5-14.5); White Blood Count 8.3 K/mcL (4.3-11.1)
[2021-09-13] MEDS: Acetaminophen 325 MG TABLET PO PRN (02:52)
[2021-09-13] MEDS: *HR* Heparin 5,000 UNIT/ML VIAL SQ SCH ×2 (06:31→15:59)
[2021-09-13] MEDS: Latanoprost 2.5 ML BOTTLE BOTH EYES SCH ×2 (09:10→20:38)
[2021-09-13] MEDS: Ondansetron 4 MG/2 ML VIAL IVP SCH ×2 (10:57→17:46)
[2021-09-13] MEDS: metroNIDAZOLE 500 MG TABLET PO SCH ×3 (11:02→20:31)
[2021-09-13] MEDS: Potassium Chloride Elixir 20 MEQ/15 ML UDC PO SCH ×2 (11:03→20:30)
[2021-09-13] MEDS: Nitrofurantoin (BID) 100 MG CAPSULE PO SCH ×2 (11:03→15:58)
[2021-09-13] MEDS: Magnesium Oxide 400 MG TABLET PO SCH ×2 (11:03→20:31)
[2021-09-13] MEDS ORDERED: Potassium Phosphate 44 MEQ in 0.9 % Sodium Chloride 250 ML IVPB ONE (15:00)
[2021-09-13] MEDS: 0.9 % Sodium Chloride 1,000 ML IVC SCH (15:43)
[2021-09-13] MEDS: Vancomycin Oral Soln 125 MG/2.5 ML UDC PO SCH ×2 (17:46→21:34)
[2021-09-14] MEDS: Ondansetron 4 MG/2 ML VIAL IVP SCH ×4 (00:09→17:43)
[2021-09-14] MEDS: *HR* Heparin 5,000 UNIT/ML VIAL SQ SCH ×2 (05:02→17:43)
[2021-09-14 07:20] LABS: Hematocrit 35.1 % (35.3-44.9); Hemoglobin 10.2 g/dL (11.5-15.4); Mean Corpuscular HGB Conc 29.1 g/dL (31.6-35.5); Mean Corpuscular Hemoglobin 26.8 pg (28.0-33.3); Mean Corpuscular Volume 92.4 fL (83.0-100.0); Mean Platelet Volume 11.9 fL (9.4-12.4); Platelet Count 140 K/mcL (140-400); Red Cell Distribution Width 13.7 % (11.5-14.5); White Blood Count 9.2 K/mcL (4.3-11.1)
[2021-09-14 07:41] LABS: Calcium 7.3 mg/dL (8.6-10.3); Magnesium 1.8 mg/dL (1.6-2.6); Phosphorous 3.3 mg/dL (2.7-4.5)
[2021-09-14] MEDS: Potassium Chloride Elixir 20 MEQ/15 ML UDC PO SCH (09:48)
[2021-09-14] MEDS: Latanoprost 2.5 ML BOTTLE BOTH EYES SCH ×2 (09:48→20:29)
[2021-09-14] MEDS: Nitrofurantoin (BID) 100 MG CAPSULE PO SCH ×2 (09:49→17:43)
[2021-09-14] MEDS: Magnesium Oxide 400 MG TABLET PO SCH ×2 (09:49→20:28)
[2021-09-14] MEDS: metroNIDAZOLE 500 MG TABLET PO SCH ×3 (09:49→20:28)
[2021-09-14] MEDS: 0.9 % Sodium Chloride 1,000 ML IVC SCH ×2 (10:49→20:26)
[2021-09-14] MEDS: Vancomycin Oral Soln 125 MG/2.5 ML UDC PO SCH ×4 (10:50→20:28)
[2021-09-15] MEDS: Ondansetron 4 MG/2 ML VIAL IVP SCH ×4 (00:29→17:27)
[2021-09-15 01:07] LABS: Basophils % 0.4 %; Eosinophils # 0.3 K/mcL (0.0-0.6); Eosinophils % 2.8 %; Hematocrit 31.1 % (35.3-44.9); Hemoglobin 9.1 g/dL (11.5-15.4); Immature Granulocytes % 1.8 % (0-4); Lymphocytes # 2.1 K/mcL (0.6-4.6); Lymphocytes % 22.7 %; Mean Corpuscular HGB Conc 29.3 g/dL (31.6-35.5); Mean Corpuscular Hemoglobin 27.1 pg (28.0-33.3); Mean Corpuscular Volume 92.6 fL (83.0-100.0); Mean Platelet Volume 11.4 fL (9.4-12.4); Monocytes # 0.6 K/mcL (0.0-1.3); Monocytes % 6.9 %; Neutrophils # 6.1 K/mcL (1.6-8.9); Platelet Count 127 K/mcL (140-400); Red Blood Count 3.36 M/mcL (3.82-4.97); Red Cell Distribution Width 13.7 % (11.5-14.5); Segmented Neutrophils % 65.4 %; White Blood Count 9.3 K/mcL (4.3-11.1)
[2021-09-15 01:30] LABS: Calcium 6.9 mg/dL (8.6-10.3); Magnesium 1.5 mg/dL (1.6-2.6); Phosphorous 2.9 mg/dL (2.7-4.5); Potassium 3.5 mEq/L (3.5-5.1)
[2021-09-15] MEDS: *HR* Heparin 5,000 UNIT/ML VIAL SQ SCH ×2 (06:18→17:27)
[2021-09-15] MEDS: metroNIDAZOLE 500 MG TABLET PO SCH ×3 (08:41→21:01)
[2021-09-15] MEDS: Nitrofurantoin (BID) 100 MG CAPSULE PO SCH ×2 (08:41→17:27)
[2021-09-15] MEDS: Magnesium Oxide 400 MG TABLET PO SCH ×2 (08:42→21:01)
[2021-09-15] MEDS: Latanoprost 2.5 ML BOTTLE BOTH EYES SCH ×2 (08:42→21:02)
[2021-09-15] MEDS: Vancomycin Oral Soln 125 MG/2.5 ML UDC PO SCH ×4 (12:36→21:01)
[2021-09-15] MEDS ORDERED: Potassium Chloride Elixir 20 MEQ/15 ML UDC PO SCH (14:00)
[2021-09-16] MEDS: 0.9 % Sodium Chloride 1,000 ML IVC SCH ×3 (00:19→11:21)
[2021-09-16] MEDS: Ondansetron 4 MG/2 ML VIAL IVP SCH ×4 (00:22→17:41)
[2021-09-16 01:48] LABS: Basophils % 0.5 %; Eosinophils # 0.3 K/mcL (0.0-0.6); Eosinophils % 3.2 %; Hematocrit 30.3 % (35.3-44.9); Hemoglobin 8.9 g/dL (11.5-15.4); Immature Granulocytes % 1.8 % (0-4); Lymphocytes % 24.6 %; Mean Corpuscular HGB Conc 29.4 g/dL (31.6-35.5); Mean Corpuscular Hemoglobin 27.4 pg (28.0-33.3); Mean Corpuscular Volume 93.2 fL (83.0-100.0); Mean Platelet Volume 11.9 fL (9.4-12.4); Monocytes # 0.5 K/mcL (0.0-1.3); Monocytes % 5.6 %; Neutrophils # 5.3 K/mcL (1.6-8.9); Platelet Count 125 K/mcL (140-400); Red Blood Count 3.25 M/mcL (3.82-4.97); Red Cell Distribution Width 13.8 % (11.5-14.5); Segmented Neutrophils % 64.3 %; White Blood Count 8.2 K/mcL (4.3-11.1)
[2021-09-16 02:00] LABS: Calcium 7.1 mg/dL (8.6-10.3); Potassium 3.3 mEq/L (3.5-5.1)
[2021-09-16] MEDS: *HR* Heparin 5,000 UNIT/ML VIAL SQ SCH ×2 (05:18→17:22)
[2021-09-16] MEDS: Nitrofurantoin (BID) 100 MG CAPSULE PO SCH ×2 (11:09→15:05)
[2021-09-16] MEDS: Magnesium Oxide 400 MG TABLET PO SCH ×2 (11:09→20:09)
[2021-09-16] MEDS: metroNIDAZOLE 500 MG TABLET PO SCH ×3 (11:09→20:09)
[2021-09-16] MEDS: Vancomycin Oral Soln 125 MG/2.5 ML UDC PO SCH ×4 (11:10→20:09)
[2021-09-16] MEDS: Latanoprost 2.5 ML BOTTLE BOTH EYES SCH ×2 (11:15→20:10)
[2021-09-16] MEDS: Nystatin Ointment 15 GM TUBE TP SCH ×3 (15:05→20:09)
[2021-09-16] MEDS: Potassium Chloride Elixir 20 MEQ/15 ML UDC PO SCH (15:11)
[2021-09-17] MEDS: 0.9 % Sodium Chloride 1,000 ML IVC SCH ×2 (00:17→15:34)
[2021-09-17] MEDS: Ondansetron 4 MG/2 ML VIAL IVP SCH ×4 (00:18→18:33)
[2021-09-17] MEDS: *HR* Heparin 5,000 UNIT/ML VIAL SQ SCH ×2 (05:23→18:32)
[2021-09-17 05:40] LABS: Basophils % 0.5 %; Eosinophils # 0.2 K/mcL (0.0-0.6); Eosinophils % 2.8 %; Hematocrit 29.8 % (35.3-44.9); Hemoglobin 8.9 g/dL (11.5-15.4); Immature Granulocytes % 1.2 % (0-4); Lymphocytes % 25.4 %; Mean Corpuscular HGB Conc 29.9 g/dL (31.6-35.5); Mean Corpuscular Hemoglobin 27.3 pg (28.0-33.3); Mean Corpuscular Volume 91.4 fL (83.0-100.0); Mean Platelet Volume 11.3 fL (9.4-12.4); Monocytes # 0.4 K/mcL (0.0-1.3); Monocytes % 5.7 %; Platelet Count 120 K/mcL (140-400); Red Blood Count 3.26 M/mcL (3.82-4.97); Segmented Neutrophils % 64.4 %; White Blood Count 7.7 K/mcL (4.3-11.1)
[2021-09-17 05:56] LABS: Calcium 7.5 mg/dL (8.6-10.3); Potassium 3.7 mEq/L (3.5-5.1)
[2021-09-17] MEDS: Magnesium Oxide 400 MG TABLET PO SCH ×2 (08:06→20:52)
[2021-09-17] MEDS: Vancomycin Oral Soln 125 MG/2.5 ML UDC PO SCH ×4 (08:06→20:52)
[2021-09-17] MEDS: metroNIDAZOLE 500 MG TABLET PO SCH ×3 (08:06→20:52)
[2021-09-17] MEDS: Latanoprost 2.5 ML BOTTLE BOTH EYES SCH (08:07)
[2021-09-17] MEDS: Potassium Chloride Elixir 20 MEQ/15 ML UDC PO SCH (08:07)
[2021-09-17] MEDS: Nystatin Ointment 15 GM TUBE TP SCH ×4 (08:20→22:03)
[2021-09-17] MEDS ORDERED: levoFLOXacin 750 MG TABLET PO ONE (09:00)
[2021-09-17] MEDS: 0.9 % Sodium Chloride w KCl 20 MEQ/1,000 ML MLS IVC SCH ×2 (13:34→23:40)
[2021-09-18] MEDS: Latanoprost 2.5 ML BOTTLE BOTH EYES SCH ×3 (00:04→19:55)
[2021-09-18] MEDS: Ondansetron 4 MG/2 ML VIAL IVP SCH ×4 (00:07→18:21)
[2021-09-18] MEDS: *HR* Heparin 5,000 UNIT/ML VIAL SQ SCH ×2 (04:39→18:21)
[2021-09-18 06:13] LABS: Calcium 7.1 mg/dL (8.6-10.3); Potassium 3.6 mEq/L (3.5-5.1)
[2021-09-18] MEDS: 0.9 % Sodium Chloride w KCl 20 MEQ/1,000 ML MLS IVC SCH (08:20)
[2021-09-18] MEDS: metroNIDAZOLE 500 MG TABLET PO SCH (08:21)
[2021-09-18] MEDS: Nystatin Ointment 15 GM TUBE TP SCH ×4 (08:22→20:00)
[2021-09-18] MEDS: Potassium Chloride Elixir 20 MEQ/15 ML UDC PO SCH (08:22)
[2021-09-18] MEDS: Magnesium Oxide 400 MG TABLET PO SCH ×2 (08:22→19:56)
[2021-09-18] MEDS: Vancomycin Oral Soln 125 MG/2.5 ML UDC PO SCH ×4 (08:22→19:56)
[2021-09-18 16:34] LABS: Basophils # 0.1 K/mcL (0.0-0.2); Basophils % 0.6 %; Eosinophils # 0.2 K/mcL (0.0-0.6); Hematocrit 30.4 % (35.3-44.9); Immature Granulocytes % 0.8 % (0-4); Lymphocytes # 2.1 K/mcL (0.6-4.6); Lymphocytes % 21.7 %; Mean Corpuscular HGB Conc 29.6 g/dL (31.6-35.5); Mean Corpuscular Hemoglobin 27.7 pg (28.0-33.3); Mean Corpuscular Volume 93.5 fL (83.0-100.0); Mean Platelet Volume 11.5 fL (9.4-12.4); Monocytes # 0.6 K/mcL (0.0-1.3); Monocytes % 5.6 %; Neutrophils # 6.8 K/mcL (1.6-8.9); Platelet Count 114 K/mcL (140-400); Red Blood Count 3.25 M/mcL (3.82-4.97); Segmented Neutrophils % 69.3 %; White Blood Count 9.8 K/mcL (4.3-11.1)
[2021-09-18 17:06] LABS: Reactive Lymphocytes Present (Not Present)
[2021-09-18 19:05] LABS: Adenovirus Not Detected (Not Detect); Coronavirus 229E Not Detected (Not Detect); Coronavirus HKU1 Not Detected (Not Detect); Coronavirus NL63 Not Detected (Not Detect); Coronavirus OC43 Not Detected (Not Detect)
[2021-09-18 19:06] LABS: Bordetella Pertussis Not Detected (Not Detect); Chlamydophila pneumoniae Not Detected (Not Detect); Human Metapneumovirus Not Detected (Not Detect); Human Rhinovirus/Enterovirus Not Detected (Not Detect); Influenza A Subtype 2009 H1 Not Detected (Not Detect); Influenza B Not Detected (Not Detect); Mycoplasma pneumoniae Not Detected (Not Detect); Parainfluenza Virus 1 Not Detected (Not Detect); Parainfluenza Virus 2 Not Detected (Not Detect); Parainfluenza Virus 3 Not Detected (Not Detect); Parainfluenza Virus 4 Not Detected (Not Detect); Respiratory Syncytial Virus Not Detected (Not Detect); SARS-CoV-2 DETECTED (Not Detect)
[2021-09-19] MEDS: 0.9 % Sodium Chloride w KCl 20 MEQ/1,000 ML MLS IVC SCH ×5 (00:47→23:00)
[2021-09-19] MEDS: Ondansetron 4 MG/2 ML VIAL IVP SCH ×4 (00:48→18:06)
[2021-09-19] MEDS: Acetaminophen 325 MG TABLET PO PRN ×2 (04:04→22:20)
[2021-09-19] MEDS: *HR* Heparin 5,000 UNIT/ML VIAL SQ SCH ×2 (05:38→18:07)
[2021-09-19 06:42] LABS: Hematocrit 27.1 % (35.3-44.9); Mean Corpuscular HGB Conc 29.5 g/dL (31.6-35.5); Mean Corpuscular Hemoglobin 27.2 pg (28.0-33.3); Mean Corpuscular Volume 92.2 fL (83.0-100.0); Mean Platelet Volume 11.3 fL (9.4-12.4); Platelet Count 111 K/mcL (140-400); Red Blood Count 2.94 M/mcL (3.82-4.97); Red Cell Distribution Width 14.2 % (11.5-14.5)
[2021-09-19 07:02] LABS: Calcium 7.5 mg/dL (8.6-10.3); Magnesium 1.3 mg/dL (1.6-2.6); Potassium 3.7 mEq/L (3.5-5.1)
[2021-09-19] MEDS: Potassium Chloride Elixir 20 MEQ/15 ML UDC PO SCH (08:55)
[2021-09-19] MEDS: Vancomycin Oral Soln 125 MG/2.5 ML UDC PO SCH ×4 (08:55→22:21)
[2021-09-19] MEDS: Latanoprost 2.5 ML BOTTLE BOTH EYES SCH ×2 (08:56→22:22)
[2021-09-19] MEDS: Nystatin Ointment 15 GM TUBE TP SCH ×4 (08:56→22:22)
[2021-09-19] MEDS: Magnesium Oxide 400 MG TABLET PO SCH ×2 (08:56→22:21)
[2021-09-19] MEDS ORDERED: levoFLOXacin 500 MG TABLET PO SCH (09:00)
[2021-09-19] MEDS ORDERED: Bismuth Subsalicylate 120 ML ORAL SUSPENSION PO PRN (14:08)
[2021-09-19] MEDS: Melatonin 3 MG TABLET PO PRN (22:21)
[2021-09-20] MEDS: Ondansetron 4 MG/2 ML VIAL IVP SCH ×4 (00:08→18:22)
[2021-09-20 01:49] LABS: Hematocrit 29.4 % (35.3-44.9); Hemoglobin 8.3 g/dL (11.5-15.4); Mean Corpuscular HGB Conc 28.2 g/dL (31.6-35.5); Mean Corpuscular Hemoglobin 26.5 pg (28.0-33.3); Mean Corpuscular Volume 93.9 fL (83.0-100.0); Mean Platelet Volume 11.1 fL (9.4-12.4); Platelet Count 124 K/mcL (140-400); Red Blood Count 3.13 M/mcL (3.82-4.97); Red Cell Distribution Width 14.4 % (11.5-14.5); White Blood Count 9.3 K/mcL (4.3-11.1)
[2021-09-20 02:08] LABS: Calcium 7.7 mg/dL (8.6-10.3); Potassium 4.1 mEq/L (3.5-5.1)
[2021-09-20] MEDS: *HR* Heparin 5,000 UNIT/ML VIAL SQ SCH ×2 (06:43→18:23)
[2021-09-20] MEDS: Potassium Chloride Elixir 20 MEQ/15 ML UDC PO SCH (11:03)
[2021-09-20] MEDS: Magnesium Oxide 400 MG TABLET PO SCH ×2 (11:04→21:55)
[2021-09-20] MEDS: Vancomycin Oral Soln 125 MG/2.5 ML UDC PO SCH ×4 (11:04→21:55)
[2021-09-20] MEDS: Latanoprost 2.5 ML BOTTLE BOTH EYES SCH ×2 (11:05→21:59)
[2021-09-20] MEDS: Nystatin Ointment 15 GM TUBE TP SCH ×4 (11:05→21:57)
[2021-09-20] MEDS: 0.9 % Sodium Chloride w KCl 20 MEQ/1,000 ML MLS IVC SCH ×3 (14:58→23:48)
[2021-09-20] MEDS ORDERED: hydrOXYzine pamoate 25 MG CAPSULE PO ONE (18:37)
[2021-09-20] MEDS: Melatonin 3 MG TABLET PO PRN (21:56)
[2021-09-21] MEDS: Ondansetron 4 MG/2 ML VIAL IVP SCH ×4 (01:00→19:30)
[2021-09-21] MEDS: Vancomycin Oral Soln 125 MG/2.5 ML UDC PO SCH ×4 (10:11→19:35)
[2021-09-21] MEDS: Magnesium Oxide 400 MG TABLET PO SCH ×2 (10:11→19:35)
[2021-09-21] MEDS: Potassium Chloride Elixir 20 MEQ/15 ML UDC PO SCH (10:12)
[2021-09-21] MEDS: Latanoprost 2.5 ML BOTTLE BOTH EYES SCH ×2 (10:19→19:36)
[2021-09-21] MEDS: Nystatin Ointment 15 GM TUBE TP SCH ×4 (10:19→19:36)
[2021-09-21 10:39] LABS: Hematocrit 30.4 % (35.3-44.9); Hemoglobin 9.1 g/dL (11.5-15.4); Mean Corpuscular HGB Conc 29.9 g/dL (31.6-35.5); Mean Corpuscular Hemoglobin 27.5 pg (28.0-33.3); Mean Corpuscular Volume 91.8 fL (83.0-100.0); Mean Platelet Volume 11.3 fL (9.4-12.4); Platelet Count 124 K/mcL (140-400); Red Blood Count 3.31 M/mcL (3.82-4.97); Red Cell Distribution Width 14.6 % (11.5-14.5); White Blood Count 6.9 K/mcL (4.3-11.1)
[2021-09-21 10:58] LABS: Calcium 7.9 mg/dL (8.6-10.3); Potassium 4.5 mEq/L (3.5-5.1)
[2021-09-21] MEDS: 0.9 % Sodium Chloride w KCl 20 MEQ/1,000 ML MLS IVC SCH ×3 (11:25→23:16)
[2021-09-21] MEDS ORDERED: 0.9 % Sodium Chloride 500 ML IVC ONE (17:32)
[2021-09-22] MEDS: Ondansetron 4 MG/2 ML VIAL IVP SCH ×5 (00:09→23:47)
[2021-09-22] MEDS: Vancomycin Oral Soln 125 MG/2.5 ML UDC PO SCH ×4 (08:25→19:56)
[2021-09-22] MEDS: Magnesium Oxide 400 MG TABLET PO SCH ×2 (08:26→19:55)
[2021-09-22] MEDS: Nystatin Ointment 15 GM TUBE TP SCH ×4 (08:32→19:56)
[2021-09-22] MEDS: Potassium Chloride Elixir 20 MEQ/15 ML UDC PO SCH (08:32)
[2021-09-22] MEDS: 0.9 % Sodium Chloride w KCl 20 MEQ/1,000 ML MLS IVC SCH ×3 (12:15→19:55)
[2021-09-22] MEDS: Latanoprost 2.5 ML BOTTLE BOTH EYES SCH ×2 (12:40→19:56)
[2021-09-23] MEDS: 0.9 % Sodium Chloride w KCl 20 MEQ/1,000 ML MLS IVC SCH ×2 (05:48→16:32)
[2021-09-23] MEDS: Ondansetron 4 MG/2 ML VIAL IVP SCH ×4 (07:32→23:50)
[2021-09-23 08:05] LABS: Hematocrit 28.6 % (35.3-44.9); Hemoglobin 8.4 g/dL (11.5-15.4); Mean Corpuscular HGB Conc 29.4 g/dL (31.6-35.5); Mean Corpuscular Hemoglobin 26.9 pg (28.0-33.3); Mean Corpuscular Volume 91.7 fL (83.0-100.0); Platelet Count 123 K/mcL (140-400); Red Blood Count 3.12 M/mcL (3.82-4.97); White Blood Count 5.6 K/mcL (4.3-11.1)
[2021-09-23 08:25] LABS: Calcium 7.7 mg/dL (8.6-10.3); Potassium 4.5 mEq/L (3.5-5.1)
[2021-09-23] MEDS: Vancomycin Oral Soln 125 MG/2.5 ML UDC PO SCH ×2 (09:50→12:05)
[2021-09-23] MEDS: Magnesium Oxide 400 MG TABLET PO SCH ×2 (09:50→20:02)
[2021-09-23] MEDS: Potassium Chloride Elixir 20 MEQ/15 ML UDC PO SCH (09:50)
[2021-09-23] MEDS: Latanoprost 2.5 ML BOTTLE BOTH EYES SCH ×2 (09:50→20:02)
[2021-09-23] MEDS: Nystatin Ointment 15 GM TUBE TP SCH ×4 (09:51→20:03)
[2021-09-24] MEDS: 0.9 % Sodium Chloride w KCl 20 MEQ/1,000 ML MLS IVC SCH ×3 (02:44→13:05)
[2021-09-24] MEDS: Ondansetron 4 MG/2 ML VIAL IVP SCH (05:27)
[2021-09-24 09:26] LABS: Hematocrit 28.9 % (35.3-44.9); Hemoglobin 8.6 g/dL (11.5-15.4); Mean Corpuscular HGB Conc 29.8 g/dL (31.6-35.5); Mean Corpuscular Hemoglobin 27.2 pg (28.0-33.3); Mean Corpuscular Volume 91.5 fL (83.0-100.0); Mean Platelet Volume 10.8 fL (9.4-12.4); Platelet Count 151 K/mcL (140-400); Red Blood Count 3.16 M/mcL (3.82-4.97); Red Cell Distribution Width 14.9 % (11.5-14.5); White Blood Count 5.8 K/mcL (4.3-11.1)
[2021-09-24] MEDS: Latanoprost 2.5 ML BOTTLE BOTH EYES SCH (09:28)
[2021-09-24] MEDS: Magnesium Oxide 400 MG TABLET PO SCH (09:28)
[2021-09-24] MEDS: Nystatin Ointment 15 GM TUBE TP SCH ×3 (09:29→18:47)
[2021-09-24] MEDS: Potassium Chloride Elixir 20 MEQ/15 ML UDC PO SCH (09:29)
[2021-09-24 09:44] LABS: Calcium 7.8 mg/dL (8.6-10.3); Potassium 4.5 mEq/L (3.5-5.1)
[2021-09-24] MEDS ORDERED: Ondansetron ODT 4 MG TAB.RAPDIS SL PRN (09:44)
[2021-09-24] MEDS ORDERED: Ringers Solution, Lactated 1,000 ML IVC SCH (13:30)
[2021-09-24 15:02] VITALS: BP 97/58; PULSE 63; TEMP 99.1; O2SAT 96
== END 2021-09-24 19:13 | DRG 871 ==
LOC: EMEROOARM 16:59 → 3NENU 16:59 → SUATTDRO 22:59 → 3NENU 23:55
PROVIDERS: ADMIT Internal Medicine; ATTEND Internal Medicine

== ENCOUNTER 2021-10-18 10:56 | Inpatient (IN) ==
[2021-10-18] MEDS ORDERED: Ondansetron 4 MG/2 ML VIAL IVP PRN (16:13)
[2021-10-18] MEDS ORDERED: Melatonin 3 MG TABLET PO PRN (16:13)
[2021-10-18] MEDS ORDERED: Naloxone 0.4 MG/ML INJ IVP PRN (16:13)
[2021-10-18] MEDS ORDERED: Acetaminophen 325 MG TABLET PO PRN (16:22)
[2021-10-18] MEDS: 0.9 % Sodium Chloride 1,000 ML IVC SCH (17:18)
[2021-10-18 17:42] LABS: Basophils # 0.1 K/mcL (0.0-0.2); Basophils % 0.5 %; Eosinophils # 0.1 K/mcL (0.0-0.6); Eosinophils % 1.3 %; Hematocrit 26.9 % (35.3-44.9); Hemoglobin 8.2 g/dL (11.5-15.4); Lymphocytes # 2.3 K/mcL (0.6-4.6); Lymphocytes % 24.5 %; Mean Corpuscular HGB Conc 30.5 g/dL (31.6-35.5); Mean Corpuscular Hemoglobin 26.3 pg (28.0-33.3); Mean Corpuscular Volume 86.2 fL (83.0-100.0); Mean Platelet Volume 10.6 fL (9.4-12.4); Monocytes % 10.9 %; Neutrophils # 5.7 K/mcL (1.6-8.9); Platelet Count 149 K/mcL (140-400); Red Blood Count 3.12 M/mcL (3.82-4.97); Segmented Neutrophils % 60.8 %; White Blood Count 9.4 K/mcL (4.3-11.1)
[2021-10-18 17:53] LABS: Albumin/Globulin Ratio 1.1 (1.1-2.2); Bilirubin,Total 0.8 mg/dL (0.3-1.0); Calcium 8.5 mg/dL (8.6-10.3); Globulin 2.8 g/dL (2.4-3.5); Magnesium 2.3 mg/dL (1.6-2.6); Potassium 4.3 mEq/L (3.5-5.1); Total Protein 5.8 g/dL (6.4-8.9)
[2021-10-18] MEDS: Fidaxomicin 200 MG TABLET PO SCH (20:24)
[2021-10-18] MEDS: Latanoprost 2.5 ML BOTTLE BOTH EYES SCH (21:26)
[2021-10-19 05:38] LABS: Basophils # 0.1 K/mcL (0.0-0.2); Basophils % 0.7 %; Eosinophils # 0.1 K/mcL (0.0-0.6); Eosinophils % 1.4 %; Hematocrit 25.4 % (35.3-44.9); Hemoglobin 7.6 g/dL (11.5-15.4); Immature Granulocytes % 1.9 % (0-4); Lymphocytes # 1.8 K/mcL (0.6-4.6); Lymphocytes % 23.9 %; Mean Corpuscular HGB Conc 29.9 g/dL (31.6-35.5); Mean Corpuscular Hemoglobin 26.7 pg (28.0-33.3); Mean Corpuscular Volume 89.1 fL (83.0-100.0); Mean Platelet Volume 10.4 fL (9.4-12.4); Monocytes # 0.7 K/mcL (0.0-1.3); Neutrophils # 4.6 K/mcL (1.6-8.9); Platelet Count 133 K/mcL (140-400); Red Blood Count 2.85 M/mcL (3.82-4.97); Red Cell Distribution Width 15.1 % (11.5-14.5); Segmented Neutrophils % 63.1 %; White Blood Count 7.4 K/mcL (4.3-11.1)
[2021-10-19 06:00] LABS: Calcium 8.3 mg/dL (8.6-10.3); Potassium 3.6 mEq/L (3.5-5.1)
[2021-10-19] MEDS: 0.9 % Sodium Chloride 1,000 ML IVC SCH ×3 (08:41→16:58)
[2021-10-19] MEDS: Fidaxomicin 200 MG TABLET PO SCH ×2 (08:42→20:21)
[2021-10-19] MEDS: Latanoprost 2.5 ML BOTTLE BOTH EYES SCH (20:21)
[2021-10-19] MEDS ORDERED: Mirtazapine 15 MG TABLET PO SCH (21:00)
[2021-10-20] MEDS: 0.9 % Sodium Chloride 1,000 ML IVC SCH ×4 (00:44→17:37)
[2021-10-20 02:01] LABS: Hematocrit 30.3 % (35.3-44.9); Hemoglobin 8.6 g/dL (11.5-15.4)
[2021-10-20] MEDS: Fidaxomicin 200 MG TABLET PO SCH ×2 (08:28→21:12)
[2021-10-20] MEDS: Nystatin POWDER 30 GM BOTTLE TP SCH ×3 (10:51→21:13)
[2021-10-20] MEDS ORDERED: Aquaphor/Maalox 50 GM BOTTLE TP PRN (11:24)
[2021-10-20] MEDS: MetroNIDAZOLE 500 MG/100 ML 500 MG/100 ML BAG IVPB SCH (17:36)
[2021-10-20] MEDS: Nystatin Cream 15 GM TUBE TP SCH ×2 (17:36→21:13)
[2021-10-20] MEDS: Latanoprost 2.5 ML BOTTLE BOTH EYES SCH (21:13)
[2021-10-21] MEDS: MetroNIDAZOLE 500 MG/100 ML 500 MG/100 ML BAG IVPB SCH ×3 (01:20→15:55)
[2021-10-21] MEDS: 0.9 % Sodium Chloride 1,000 ML IVC SCH ×3 (01:23→17:56)
[2021-10-21 05:15] LABS: Calcium 7.5 mg/dL (8.6-10.3); Potassium 2.7 mEq/L (3.5-5.1)
[2021-10-21] MEDS: Fidaxomicin 200 MG TABLET PO SCH ×2 (08:23→21:44)
[2021-10-21] MEDS: Ergocalciferol (VIT D2) 50,000 UNIT (1.25MG) CAP PO SCH (08:23)
[2021-10-21] MEDS: Nystatin POWDER 30 GM BOTTLE TP SCH ×3 (08:24→21:44)
[2021-10-21] MEDS: Nystatin Cream 15 GM TUBE TP SCH ×3 (08:24→21:44)
[2021-10-21] MEDS: *HR* Heparin 5,000 UNIT/ML VIAL SQ SCH (21:44)
[2021-10-21] MEDS: Latanoprost 2.5 ML BOTTLE BOTH EYES SCH (21:45)
[2021-10-22] MEDS: MetroNIDAZOLE 500 MG/100 ML 500 MG/100 ML BAG IVPB SCH ×3 (00:04→15:17)
[2021-10-22] MEDS: 0.9 % Sodium Chloride 1,000 ML IVC SCH ×3 (01:18→17:08)
[2021-10-22] MEDS ORDERED: Dextrose Gel 15 GM/37.5 ML TUBE PO PRN (06:55)
[2021-10-22] MEDS ORDERED: D5% in Water 1,000 ML IVC PRN (06:55)
[2021-10-22] MEDS ORDERED: *HR* Dextrose 50 % in Water (Syg) 50 ML SYRINGE IVP PRN (06:55)
[2021-10-22] MEDS: *HR* Heparin 5,000 UNIT/ML VIAL SQ SCH ×3 (07:47→20:23)
[2021-10-22] MEDS: Fidaxomicin 200 MG TABLET PO SCH ×2 (09:54→20:26)
[2021-10-22] MEDS: Nystatin POWDER 30 GM BOTTLE TP SCH ×3 (09:55→20:25)
[2021-10-22] MEDS: Nystatin Cream 15 GM TUBE TP SCH ×3 (09:56→20:24)
[2021-10-22] MEDS: Latanoprost 2.5 ML BOTTLE BOTH EYES SCH (20:25)
[2021-10-23 01:15] LABS: Calcium 7.2 mg/dL (8.6-10.3); Magnesium 1.3 mg/dL (1.6-2.6)
[2021-10-23] MEDS: MetroNIDAZOLE 500 MG/100 ML 500 MG/100 ML BAG IVPB SCH (03:12)
[2021-10-23] MEDS: 0.9 % Sodium Chloride 1,000 ML IVC SCH ×2 (04:01→13:11)
[2021-10-23] MEDS: *HR* Heparin 5,000 UNIT/ML VIAL SQ SCH ×3 (05:19→21:25)
[2021-10-23] MEDS: Fidaxomicin 200 MG TABLET PO SCH ×2 (09:24→20:35)
[2021-10-23] MEDS: Nystatin Cream 15 GM TUBE TP SCH ×3 (09:27→20:36)
[2021-10-23] MEDS: Nystatin POWDER 30 GM BOTTLE TP SCH ×3 (09:28→20:36)
[2021-10-23] MEDS: Sodium Bicarbonate 75 MEQ in 0.45 % Sodium Chloride 1,000 ML IVC SCH (17:29)
[2021-10-23] MEDS: Latanoprost 2.5 ML BOTTLE BOTH EYES SCH (20:36)
[2021-10-24 02:33] LABS: Hematocrit 22.7 % (35.3-44.9); Hemoglobin 6.8 g/dL (11.5-15.4); Mean Corpuscular Hemoglobin 26.9 pg (28.0-33.3); Mean Corpuscular Volume 89.7 fL (83.0-100.0); Mean Platelet Volume 10.3 fL (9.4-12.4); Platelet Count 181 K/mcL (140-400); Red Blood Count 2.53 M/mcL (3.82-4.97); Red Cell Distribution Width 15.8 % (11.5-14.5); White Blood Count 5.3 K/mcL (4.3-11.1)
[2021-10-24 02:53] LABS: Calcium 7.3 mg/dL (8.6-10.3); Magnesium 1.6 mg/dL (1.6-2.6); Phosphorous 2.1 mg/dL (2.7-4.5); Potassium 3.1 mEq/L (3.5-5.1)
[2021-10-24] MEDS: Sodium Bicarbonate 75 MEQ in 0.45 % Sodium Chloride 1,000 ML IVC SCH (03:30)
[2021-10-24] MEDS: *HR* Heparin 5,000 UNIT/ML VIAL SQ SCH (04:47)
[2021-10-24] MEDS ORDERED: Potassium Phosphate 44 MEQ in 0.9 % Sodium Chloride 250 ML IVPB ONE (06:20)
[2021-10-24] MEDS ORDERED: 0.9 % Sodium Chloride 250 ML ONE (06:22)
[2021-10-24] MEDS: Fidaxomicin 200 MG TABLET PO SCH ×2 (08:56→21:45)
[2021-10-24] MEDS: Ergocalciferol (VIT D2) 50,000 UNIT (1.25MG) CAP PO SCH (08:57)
[2021-10-24] MEDS: Nystatin Cream 15 GM TUBE TP SCH ×3 (09:13→21:45)
[2021-10-24] MEDS: Nystatin POWDER 30 GM BOTTLE TP SCH ×3 (09:13→21:45)
[2021-10-24 11:15] LABS: Hematocrit 26.4 % (35.3-44.9)
[2021-10-24] MEDS: Latanoprost 2.5 ML BOTTLE BOTH EYES SCH (21:46)
[2021-10-25 01:49] LABS: Hematocrit 26.4 % (35.3-44.9); Mean Corpuscular HGB Conc 30.3 g/dL (31.6-35.5); Mean Corpuscular Hemoglobin 26.4 pg (28.0-33.3); Mean Corpuscular Volume 87.1 fL (83.0-100.0); Mean Platelet Volume 10.1 fL (9.4-12.4); Platelet Count 198 K/mcL (140-400); Red Blood Count 3.03 M/mcL (3.82-4.97); Red Cell Distribution Width 16.2 % (11.5-14.5); White Blood Count 5.3 K/mcL (4.3-11.1)
[2021-10-25 02:09] LABS: Calcium 7.5 mg/dL (8.6-10.3); Magnesium 1.8 mg/dL (1.6-2.6); Phosphorous 3.3 mg/dL (2.7-4.5); Potassium 2.8 mEq/L (3.5-5.1)
[2021-10-25] MEDS ORDERED: 0.9 % Sodium Chloride 500 ML IVC SCH (06:15)
[2021-10-25] MEDS ORDERED: 0.9 % Sodium Chloride 250 ML ONE (06:24)
[2021-10-25] MEDS: Fidaxomicin 200 MG TABLET PO SCH ×2 (08:32→21:34)
[2021-10-25] MEDS: Nystatin Cream 15 GM TUBE TP SCH ×3 (08:32→21:35)
[2021-10-25] MEDS: Nystatin POWDER 30 GM BOTTLE TP SCH ×3 (08:32→21:35)
[2021-10-25] MEDS ORDERED: Potassium Chloride Elixir 20 MEQ/15 ML UDC PO ONE ×2 (08:49→15:44)
[2021-10-25] MEDS: Dextrose Gel 15 GM/37.5 ML TUBE PO PRN ×2 (16:22→16:50)
[2021-10-25] MEDS: Latanoprost 2.5 ML BOTTLE BOTH EYES SCH (21:36)
[2021-10-26 04:22] LABS: Hematocrit 30.9 % (35.3-44.9); Hemoglobin 9.2 g/dL (11.5-15.4); Mean Corpuscular HGB Conc 29.8 g/dL (31.6-35.5); Mean Corpuscular Hemoglobin 26.6 pg (28.0-33.3); Mean Corpuscular Volume 89.3 fL (83.0-100.0); Mean Platelet Volume 10.7 fL (9.4-12.4); Platelet Count 210 K/mcL (140-400); Red Blood Count 3.46 M/mcL (3.82-4.97); Red Cell Distribution Width 16.7 % (11.5-14.5); White Blood Count 5.3 K/mcL (4.3-11.1)
[2021-10-26 04:37] LABS: Calcium 8.2 mg/dL (8.6-10.3); Magnesium 1.7 mg/dL (1.6-2.6); Phosphorous 2.4 mg/dL (2.7-4.5); Potassium 4.1 mEq/L (3.5-5.1)
[2021-10-26] MEDS: Nystatin Cream 15 GM TUBE TP SCH ×3 (09:15→21:53)
[2021-10-26] MEDS: Fidaxomicin 200 MG TABLET PO SCH ×2 (09:15→21:52)
[2021-10-26] MEDS: Nystatin POWDER 30 GM BOTTLE TP SCH ×3 (09:16→21:54)
[2021-10-26] MEDS: Latanoprost 2.5 ML BOTTLE BOTH EYES SCH (21:52)
[2021-10-27] MEDS: Fidaxomicin 200 MG TABLET PO SCH ×2 (09:04→21:41)
[2021-10-27] MEDS: Nystatin POWDER 30 GM BOTTLE TP SCH ×3 (09:05→21:41)
[2021-10-27] MEDS: Nystatin Cream 15 GM TUBE TP SCH ×3 (09:05→21:41)
[2021-10-27] MEDS: Latanoprost 2.5 ML BOTTLE BOTH EYES SCH (21:40)
[2021-10-28] MEDS: Nystatin Cream 15 GM TUBE TP SCH ×3 (07:58→21:23)
[2021-10-28] MEDS: Fidaxomicin 200 MG TABLET PO SCH ×2 (07:58→21:22)
[2021-10-28] MEDS: Ergocalciferol (VIT D2) 50,000 UNIT (1.25MG) CAP PO SCH (07:59)
[2021-10-28] MEDS: Nystatin POWDER 30 GM BOTTLE TP SCH ×3 (07:59→21:22)
[2021-10-28] MEDS ORDERED: 0.9 % Sodium Chloride 500 ML IVC ONE (09:49)
[2021-10-28] MEDS: Latanoprost 2.5 ML BOTTLE BOTH EYES SCH (21:22)
[2021-10-29] MEDS: Nystatin Cream 15 GM TUBE TP SCH ×3 (09:57→21:02)
[2021-10-29] MEDS: Nystatin POWDER 30 GM BOTTLE TP SCH ×3 (09:57→21:00)
[2021-10-29] MEDS ORDERED: Lidocaine -MPF 2% 5 ML VIAL ONE (13:27)
[2021-10-29] MEDS ORDERED: *HR* FentaNYL (PF) 100 MCG/2 ML VIAL ONE (13:27)
[2021-10-29] MEDS ORDERED: *HR* Propofol 200 MG/20 ML VIAL IVP ONE (13:27)
[2021-10-29] MEDS ORDERED: Ondansetron 4 MG/2 ML VIAL ONE (13:27)
[2021-10-29] MEDS ORDERED: Acetaminophen 325 MG TABLET PO PRN (17:18)
[2021-10-29] MEDS ORDERED: D5% in Water 1,000 ML IVC PRN (17:18)
[2021-10-29] MEDS ORDERED: Ondansetron 4 MG/2 ML VIAL IVP PRN (17:18)
[2021-10-29] MEDS ORDERED: Naloxone 0.4 MG/ML INJ IVP PRN (17:18)
[2021-10-29] MEDS ORDERED: *HR* Dextrose 50 % in Water (Syg) 50 ML SYRINGE IVP PRN (17:18)
[2021-10-29] MEDS ORDERED: Aquaphor/Maalox 50 GM BOTTLE TP PRN (17:18)
[2021-10-29] MEDS ORDERED: Dextrose Gel 15 GM/37.5 ML TUBE PO PRN ×2 (17:18)
[2021-10-29] MEDS ORDERED: Latanoprost 2.5 ML BOTTLE BOTH EYES SCH (21:00)
[2021-10-30 08:12] VITALS: TEMP 98.3
[2021-10-30] MEDS: Nystatin POWDER 30 GM BOTTLE TP SCH (09:55)
[2021-10-30] MEDS: Nystatin Cream 15 GM TUBE TP SCH (09:55)
[2021-10-30 11:36] VITALS: BP 90/59; PULSE 92; O2SAT 98
[2021-10-31] MEDS ORDERED: Ergocalciferol (VIT D2) 50,000 UNIT (1.25MG) CAP PO SCH (09:00)
== END 2021-10-30 17:15 | disposition home health service (06) | DRG 371 ==
LOC: 2ANU → SUATTDRO 15:46
PROVIDERS: ADMIT Family Medicine; ATTEND Family Medicine

== ENCOUNTER 2021-11-21 12:09 | Inpatient (IN) ==
[2021-11-21] MEDS ORDERED: 0.9 % Sodium Chloride 1,000 ML IVC ONE (12:29)
[2021-11-21 15:01] LABS: Alanine Aminotransferase 9 Units/L (7-52); Albumin/Globulin Ratio 1.1 (1.1-2.2); Alkaline Phosphatase 57 Units/L (34-104); Aspartate Amino Transferase 14 Units/L (13-39); BUN/Creatinine Ratio 12 (6-26); Bilirubin,Total 0.8 mg/dL (0.3-1.0); Blood Urea Nitrogen 31 mg/dL (8-23); Calcium 8.1 mg/dL (8.6-10.3); Carbon Dioxide 27 mEq/L (23-29); Chloride 95 mEq/L (98-107); Globulin 2.8 g/dL (2.4-3.5); Glucose 111 mg/dL (70-105); Osmolality,Calculated 283 (280-300); Potassium 2.8 mEq/L (3.5-5.1); Sodium 133 mEq/L (136-145); Total Protein 5.8 g/dL (6.4-8.9); Troponin I < 0.03 ng/mL (< 0.04); eGFR For African Americans 22 (> 60); eGFR For Non-African Americans 18 (> 60)
[2021-11-21] MEDS ORDERED: Isovue-370 500 ML BOTTLE IVP ONE (16:16)
[2021-11-21 17:44] LABS: Bilirubin,Urine Negative (Negative); Blood,Urine Negative (Negative); Clarity,Urine Clear (Clear); Color,Urine Yellow (Yellow); Glucose,Urine (UA) Normal (Normal); Ketones,Urine Negative (Negative); Leukocyte Esterase,Urine Small (Negative); Nitrite,Urine Negative (Negative); Protein,Urine 30 mg/dL (Neg-Trace); RBC,Urine 0-3 per hpf (0-3); Squamous Epithelial Cell,Urine Few per hpf (None-Few); Transitional Epi Cells,Urine Few per hpf (None-Few); Urobilinogen,Urine Normal (Normal)
[2021-11-21 18:19] LABS: Basophils % 0.1 %; Eosinophils % 0.4 %; Hematocrit 28.8 % (35.3-44.9); Hemoglobin 8.8 g/dL (11.5-15.4); Immature Granulocytes % 0.6 % (0-4); Lymphocytes # 1.3 K/mcL (0.6-4.6); Lymphocytes % 19.4 %; Mean Corpuscular HGB Conc 30.6 g/dL (31.6-35.5); Mean Corpuscular Hemoglobin 27.2 pg (28.0-33.3); Mean Corpuscular Volume 89.2 fL (83.0-100.0); Mean Platelet Volume 10.9 fL (9.4-12.4); Monocytes # 0.3 K/mcL (0.0-1.3); Neutrophils # 5.1 K/mcL (1.6-8.9); Platelet Count 147 K/mcL (140-400); Red Blood Count 3.23 M/mcL (3.82-4.97); Red Cell Distribution Width 17.3 % (11.5-14.5); Segmented Neutrophils % 75.5 %; White Blood Count 6.7 K/mcL (4.3-11.1)
[2021-11-21] MEDS ORDERED: Ringers Solution, Lactated 1,000 ML IVC ONE ×2 (18:41→21:35)
[2021-11-21] MEDS ORDERED: Ondansetron ODT 4 MG TAB.RAPDIS SL PRN (19:54)
[2021-11-21] MEDS ORDERED: Naloxone 0.4 MG/ML INJ IVP PRN (19:54)
[2021-11-21] MEDS ORDERED: Acetaminophen 325 MG TABLET PO PRN (19:54)
[2021-11-21] MEDS ORDERED: Melatonin 3 MG TABLET PO PRN (19:54)
[2021-11-22] MEDS: 0.9 % Sodium Chloride 1,000 ML IVC SCH ×3 (00:48→18:29)
[2021-11-22 03:46] LABS: Basophils % 0.1 %; Eosinophils # 0.1 K/mcL (0.0-0.6); Hematocrit 24.8 % (35.3-44.9); Hemoglobin 7.6 g/dL (11.5-15.4); Immature Granulocytes % 0.6 % (0-4); Lymphocytes # 1.8 K/mcL (0.6-4.6); Lymphocytes % 26.9 %; Mean Corpuscular HGB Conc 30.6 g/dL (31.6-35.5); Mean Corpuscular Hemoglobin 27.4 pg (28.0-33.3); Mean Corpuscular Volume 89.5 fL (83.0-100.0); Mean Platelet Volume 11.6 fL (9.4-12.4); Monocytes # 0.4 K/mcL (0.0-1.3); Monocytes % 6.3 %; Neutrophils # 4.4 K/mcL (1.6-8.9); Platelet Count 155 K/mcL (140-400); Red Blood Count 2.77 M/mcL (3.82-4.97); Red Cell Distribution Width 17.6 % (11.5-14.5); Segmented Neutrophils % 64.1 %; White Blood Count 6.8 K/mcL (4.3-11.1)
[2021-11-22 04:24] LABS: Albumin 2.6 g/dL (3.5-5.7); Albumin/Globulin Ratio 1.1 (1.1-2.2); Bilirubin,Total 0.7 mg/dL (0.3-1.0); Calcium 7.5 mg/dL (8.6-10.3); Globulin 2.3 g/dL (2.4-3.5); Magnesium 2.7 mg/dL (1.6-2.6); Phosphorous 3.2 mg/dL (2.7-4.5); Potassium 3.5 mEq/L (3.5-5.1); Total Protein 4.9 g/dL (6.4-8.9)
[2021-11-22] MEDS ORDERED: 0.9 % Sodium Chloride 500 ML ONE (05:46)
[2021-11-22] MEDS: 0.9 % Sodium Chloride 500 ML IVC ONE ×2 (05:51→07:08)
[2021-11-22] MEDS ORDERED: Dextrose 4 GM Chewable Tablets PO PRN ×2 (07:53)
[2021-11-22] MEDS ORDERED: D5% in Water 1,000 ML IVC PRN (07:53)
[2021-11-22] MEDS ORDERED: *HR* Dextrose 50 % in Water (Syg) 50 ML SYRINGE IVP PRN (07:53)
[2021-11-22] MEDS: predniSONE 10 MG TABLET PO SCH (08:51)
[2021-11-22 14:11] LABS: Campylobacter by PCR Not detected (Not detect)
[2021-11-22 14:17] LABS: Adenovirus F 40/41 PCR Not detected (Not detect); Astrovirus PCR Not detected (Not detect); C.difficile Toxin A/B Gene PCR DETECTED (Not detect); Cryptosporidium by PCR Not detected (Not detect); Cyclospora cayetanensis PCR Not detected (Not detect); E. coli O157 by PCR Not detected (Not detect); Entamoeba histolytica PCR Not detected (Not detect); Enteroaggregative E.coli(EAEC) Not detected (Not detect); Enteropathogenic E.coli(EPEC) Not detected (Not detect); Enterotoxigenic E.coli (ETEC) Not detected (Not detect); Giardia lamblia PCR Not detected (Not detect); Norovirus GI/GII PCR Not detected (Not detect); Plesiomonas shigelloides PCR Not detected (Not detect); Rotavirus A PCR Not detected (Not detect); Salmonella PCR Not detected (Not detect); Sapovirus PCR Not detected (Not detect); Shig/EnteroinvasiveE coli EIEC Not detected (Not detect); Shigalike tox-prod E coli STEC Not detected (Not detect); Vibrio PCR Not detected (Not detect); Vibrio cholerae PCR Not detected (Not detect); Yersinia enterocolitica PCR Not detected (Not detect)
[2021-11-22] MEDS: Vancomycin Oral Soln 125 MG/2.5 ML UDC PO SCH ×2 (18:30→20:23)
[2021-11-23] MEDS: Cholestyramine 4 GM POWD.PACK PO SCH ×3 (01:43→16:59)
[2021-11-23] MEDS: 0.9 % Sodium Chloride 1,000 ML IVC SCH ×3 (02:22→18:37)
[2021-11-23] MEDS: Vancomycin Oral Soln 125 MG/2.5 ML UDC PO SCH ×4 (09:14→19:46)
[2021-11-23] MEDS: predniSONE 10 MG TABLET PO SCH (09:14)
[2021-11-23] MEDS: MetroNIDAZOLE 500 MG/100 ML 500 MG/100 ML BAG IVPB SCH ×2 (11:02→18:37)
[2021-11-24 00:32] LABS: Eosinophils # 0.1 K/mcL (0.0-0.6); Eosinophils % 1.3 %; Hematocrit 24.4 % (35.3-44.9); Hemoglobin 7.3 g/dL (11.5-15.4); Immature Granulocytes % 0.5 % (0-4); Lymphocytes # 1.1 K/mcL (0.6-4.6); Lymphocytes % 19.7 %; Mean Corpuscular HGB Conc 29.9 g/dL (31.6-35.5); Mean Corpuscular Hemoglobin 27.3 pg (28.0-33.3); Mean Corpuscular Volume 91.4 fL (83.0-100.0); Mean Platelet Volume 10.7 fL (9.4-12.4); Monocytes # 0.3 K/mcL (0.0-1.3); Monocytes % 5.5 %; Platelet Count 127 K/mcL (140-400); Red Blood Count 2.67 M/mcL (3.82-4.97); Red Cell Distribution Width 18.1 % (11.5-14.5); White Blood Count 5.5 K/mcL (4.3-11.1)
[2021-11-24 00:52] LABS: Calcium 7.3 mg/dL (8.6-10.3); Potassium 2.8 mEq/L (3.5-5.1)
[2021-11-24] MEDS: MetroNIDAZOLE 500 MG/100 ML 500 MG/100 ML BAG IVPB SCH ×3 (02:21→18:19)
[2021-11-24] MEDS: 0.9 % Sodium Chloride 1,000 ML IVC SCH ×3 (02:22→18:30)
[2021-11-24] MEDS: predniSONE 10 MG TABLET PO SCH (08:00)
[2021-11-24] MEDS: Vancomycin Oral Soln 125 MG/2.5 ML UDC PO SCH ×4 (08:00→19:59)
[2021-11-24] MEDS: Cholestyramine 4 GM POWD.PACK PO SCH ×3 (08:00→16:29)
[2021-11-24 19:52] LABS: Basophils % 0.2 %; Eosinophils % 0.7 %; Hematocrit 23.2 % (35.3-44.9); Hemoglobin 6.9 g/dL (11.5-15.4); Immature Granulocytes % 0.8 % (0-4); Lymphocytes # 1.2 K/mcL (0.6-4.6); Lymphocytes % 19.9 %; Mean Corpuscular HGB Conc 29.7 g/dL (31.6-35.5); Mean Corpuscular Hemoglobin 27.8 pg (28.0-33.3); Mean Corpuscular Volume 93.5 fL (83.0-100.0); Mean Platelet Volume 11.2 fL (9.4-12.4); Monocytes # 0.2 K/mcL (0.0-1.3); Monocytes % 2.9 %; Neutrophils # 4.5 K/mcL (1.6-8.9); Platelet Count 129 K/mcL (140-400); Red Blood Count 2.48 M/mcL (3.82-4.97); Red Cell Distribution Width 18.3 % (11.5-14.5); Segmented Neutrophils % 75.5 %; White Blood Count 5.9 K/mcL (4.3-11.1)
[2021-11-24] MEDS ORDERED: 0.9 % Sodium Chloride 250 ML ONE (21:23)
[2021-11-25] MEDS: MetroNIDAZOLE 500 MG/100 ML 500 MG/100 ML BAG IVPB SCH ×3 (03:24→17:59)
[2021-11-25 04:13] LABS: Basophils % 0.1 %; Eosinophils # 0.1 K/mcL (0.0-0.6); Eosinophils % 1.9 %; Hematocrit 27.8 % (35.3-44.9); Hemoglobin 8.4 g/dL (11.5-15.4); Immature Granulocytes % 0.7 % (0-4); Lymphocytes # 1.9 K/mcL (0.6-4.6); Mean Corpuscular HGB Conc 30.2 g/dL (31.6-35.5); Mean Corpuscular Hemoglobin 27.6 pg (28.0-33.3); Mean Corpuscular Volume 91.4 fL (83.0-100.0); Mean Platelet Volume 10.2 fL (9.4-12.4); Monocytes # 0.4 K/mcL (0.0-1.3); Monocytes % 5.7 %; Neutrophils # 4.6 K/mcL (1.6-8.9); Platelet Count 113 K/mcL (140-400); Red Blood Count 3.04 M/mcL (3.82-4.97); Red Cell Distribution Width 17.2 % (11.5-14.5); Segmented Neutrophils % 64.6 %; White Blood Count 7.2 K/mcL (4.3-11.1)
[2021-11-25 04:32] LABS: Calcium 7.3 mg/dL (8.6-10.3); Potassium 2.9 mEq/L (3.5-5.1)
[2021-11-25] MEDS ORDERED: 0.9 % Sodium Chloride 500 ML IVC ONE (04:46)
[2021-11-25] MEDS: 0.9 % Sodium Chloride 1,000 ML IVC SCH ×3 (04:55→20:57)
[2021-11-25] MEDS: Vancomycin Oral Soln 125 MG/2.5 ML UDC PO SCH ×4 (07:58→20:58)
[2021-11-25] MEDS: predniSONE 10 MG TABLET PO SCH (07:58)
[2021-11-25] MEDS: Cholestyramine 4 GM POWD.PACK PO SCH ×3 (07:58→16:24)
[2021-11-25] MEDS ORDERED: cefTRIAXone 2,000 MG in 0.9 % Sodium Chloride 20 ML IVP SCH (09:00)
[2021-11-25] MEDS ORDERED: DAPTOmycin 250 MG in 0.9 % Sodium Chloride 100 ML IVPB SCH (10:00)
[2021-11-25] MEDS ORDERED: Piperacillin/Tazobactam 3.375 GM in 0.9 % Sodium Chloride Mini Bag 100 ML IVPB SCH (11:00)
[2021-11-25] MEDS: *HR* Heparin 5,000 UNIT/ML VIAL SQ SCH ×2 (14:45→20:59)
[2021-11-25] MEDS: Piperacillin/Tazobactam 3.375 GM in 0.9 % Sodium Chloride Mini Bag 100 ML IVPB SCH (20:58)
[2021-11-26] MEDS: MetroNIDAZOLE 500 MG/100 ML 500 MG/100 ML BAG IVPB SCH (02:52)
[2021-11-26] MEDS: 0.9 % Sodium Chloride 1,000 ML IVC SCH ×3 (04:05→22:24)
[2021-11-26] MEDS: Piperacillin/Tazobactam 3.375 GM in 0.9 % Sodium Chloride Mini Bag 100 ML IVPB SCH (04:05)
[2021-11-26] MEDS: *HR* Heparin 5,000 UNIT/ML VIAL SQ SCH ×3 (05:07→20:22)
[2021-11-26 06:26] LABS: Mean Platelet Volume 11.6 fL (9.4-12.4); Segmented Neutrophils % 61.8 %
[2021-11-26 06:28] LABS: Basophils % 0.3 %; Eosinophils # 0.4 K/mcL (0.0-0.6); Eosinophils % 4.7 %; Hematocrit 30.1 % (35.3-44.9); Hemoglobin 9.4 g/dL (11.5-15.4); Immature Granulocytes % 0.9 % (0-4); Immature Platelets 3.5 % (1.1-6.1); Lymphocytes # 2.1 K/mcL (0.6-4.6); Lymphocytes % 27.9 %; Mean Corpuscular HGB Conc 31.2 g/dL (31.6-35.5); Mean Corpuscular Hemoglobin 28.2 pg (28.0-33.3); Mean Corpuscular Volume 90.4 fL (83.0-100.0); Monocytes # 0.3 K/mcL (0.0-1.3); Monocytes % 4.4 %; Neutrophils # 4.6 K/mcL (1.6-8.9); Red Blood Count 3.33 M/mcL (3.82-4.97); Red Cell Distribution Width 18.1 % (11.5-14.5); White Blood Count 7.5 K/mcL (4.3-11.1)
[2021-11-26 06:30] LABS: Platelet Count 97 K/mcL (140-400)
[2021-11-26 06:43] LABS: Calcium 7.2 mg/dL (8.6-10.3); Potassium 3.2 mEq/L (3.5-5.1)
[2021-11-26] MEDS: Cholestyramine 4 GM POWD.PACK PO SCH ×3 (08:52→20:15)
[2021-11-26] MEDS: Vancomycin Oral Soln 125 MG/2.5 ML UDC PO SCH ×4 (08:52→20:21)
[2021-11-26] MEDS: predniSONE 10 MG TABLET PO SCH (08:53)
[2021-11-27 03:20] LABS: Basophils % 0.3 %; Hemoglobin 10.6 g/dL (11.5-15.4)
[2021-11-27 03:22] LABS: Eosinophils # 0.3 K/mcL (0.0-0.6); Immature Platelets 2.3 % (1.1-6.1); Lymphocytes # 3.7 K/mcL (0.6-4.6); Lymphocytes % 39.2 %; Mean Corpuscular HGB Conc 31.2 g/dL (31.6-35.5); Mean Corpuscular Hemoglobin 28.3 pg (28.0-33.3); Mean Corpuscular Volume 90.9 fL (83.0-100.0); Mean Platelet Volume 11.5 fL (9.4-12.4); Monocytes # 0.6 K/mcL (0.0-1.3); Monocytes % 6.1 %; Neutrophils # 4.7 K/mcL (1.6-8.9); Red Blood Count 3.74 M/mcL (3.82-4.97); Red Cell Distribution Width 18.6 % (11.5-14.5); Segmented Neutrophils % 50.4 %; White Blood Count 9.4 K/mcL (4.3-11.1)
[2021-11-27 03:26] LABS: Platelet Count 97 K/mcL (140-400)
[2021-11-27 04:40] LABS: Calcium 7.3 mg/dL (8.6-10.3); Potassium 4.7 mEq/L (3.5-5.1)
[2021-11-27] MEDS: *HR* Heparin 5,000 UNIT/ML VIAL SQ SCH ×3 (05:26→20:13)
[2021-11-27] MEDS: 0.9 % Sodium Chloride 1,000 ML IVC SCH ×3 (06:51→13:56)
[2021-11-27] MEDS: Cholestyramine 4 GM POWD.PACK PO SCH ×3 (08:58→17:32)
[2021-11-27] MEDS: predniSONE 10 MG TABLET PO SCH (08:58)
[2021-11-27] MEDS: Lactobacillus 1 EACH CAP.SPRINK PO SCH ×2 (11:07→20:08)
[2021-11-27] MEDS: Vancomycin Oral Soln 125 MG/2.5 ML UDC PO SCH ×4 (11:07→20:13)
[2021-11-28] MEDS: 0.9 % Sodium Chloride 1,000 ML IVC SCH (00:22)
[2021-11-28 04:38] LABS: Potassium 3.9 mEq/L (3.5-5.1)
[2021-11-28 05:28] LABS: Basophils % 0.3 %; Eosinophils # 0.2 K/mcL (0.0-0.6); Eosinophils % 3.1 %; Hematocrit 33.2 % (35.3-44.9); Hemoglobin 10.3 g/dL (11.5-15.4); Immature Granulocytes % 0.4 % (0-4); Lymphocytes # 1.8 K/mcL (0.6-4.6); Lymphocytes % 26.6 %; Mean Corpuscular Hemoglobin 28.5 pg (28.0-33.3); Mean Corpuscular Volume 91.7 fL (83.0-100.0); Mean Platelet Volume 10.9 fL (9.4-12.4); Monocytes # 0.3 K/mcL (0.0-1.3); Monocytes % 4.3 %; Neutrophils # 4.4 K/mcL (1.6-8.9); Platelet Count 110 K/mcL (140-400); Red Blood Count 3.62 M/mcL (3.82-4.97); Red Cell Distribution Width 18.7 % (11.5-14.5); Segmented Neutrophils % 65.3 %; White Blood Count 6.7 K/mcL (4.3-11.1)
[2021-11-28] MEDS: *HR* Heparin 5,000 UNIT/ML VIAL SQ SCH ×3 (06:34→21:18)
[2021-11-28] MEDS ORDERED: Sodium Bicarbonate 150 MEQ in D5% in Water 1,000 ML IVC SCH (08:15)
[2021-11-28] MEDS: Cholestyramine 4 GM POWD.PACK PO SCH ×3 (08:26→16:35)
[2021-11-28] MEDS: predniSONE 10 MG TABLET PO SCH (10:13)
[2021-11-28] MEDS: Lactobacillus 1 EACH CAP.SPRINK PO SCH ×2 (10:13→19:15)
[2021-11-28] MEDS: Vancomycin Oral Soln 125 MG/2.5 ML UDC PO SCH ×4 (10:13→19:15)
[2021-11-28] MEDS: Sodium Bicarbonate 150 MEQ in D5% in Water 1,000 ML IVC SCH ×2 (14:20→21:49)
[2021-11-28] MEDS ORDERED: SODIUM CHLORIDE/NAHCO3/KCL/PEG 4,000 ML SOLN.RECON PO ONE (17:00)
[2021-11-29 04:27] LABS: Basophils % 0.2 %; Eosinophils # 0.1 K/mcL (0.0-0.6); Hematocrit 28.5 % (35.3-44.9); Hemoglobin 9.1 g/dL (11.5-15.4); Immature Granulocytes % 0.8 % (0-4); Lymphocytes # 1.8 K/mcL (0.6-4.6); Lymphocytes % 30.9 %; Mean Corpuscular HGB Conc 31.9 g/dL (31.6-35.5); Mean Corpuscular Hemoglobin 27.9 pg (28.0-33.3); Mean Corpuscular Volume 87.4 fL (83.0-100.0); Mean Platelet Volume 10.3 fL (9.4-12.4); Monocytes # 0.4 K/mcL (0.0-1.3); Monocytes % 5.9 %; Neutrophils # 3.6 K/mcL (1.6-8.9); Platelet Count 109 K/mcL (140-400); Red Blood Count 3.26 M/mcL (3.82-4.97); Red Cell Distribution Width 18.4 % (11.5-14.5); Segmented Neutrophils % 60.2 %; White Blood Count 5.9 K/mcL (4.3-11.1)
[2021-11-29 04:58] LABS: Calcium 6.9 mg/dL (8.6-10.3); Potassium 2.8 mEq/L (3.5-5.1)
[2021-11-29] MEDS: *HR* Heparin 5,000 UNIT/ML VIAL SQ SCH ×3 (06:34→21:25)
[2021-11-29] MEDS: Sodium Bicarbonate 150 MEQ in D5% in Water 1,000 ML IVC SCH ×3 (06:51→21:49)
[2021-11-29] MEDS: Cholestyramine 4 GM POWD.PACK PO SCH ×3 (08:39→15:45)
[2021-11-29] MEDS: Vancomycin Oral Soln 125 MG/2.5 ML UDC PO SCH ×4 (08:40→21:21)
[2021-11-29] MEDS: predniSONE 10 MG TABLET PO SCH (08:40)
[2021-11-29] MEDS: Lactobacillus 1 EACH CAP.SPRINK PO SCH ×2 (08:40→21:24)
[2021-11-30] MEDS: *HR* Heparin 5,000 UNIT/ML VIAL SQ SCH ×3 (08:00→21:52)
[2021-11-30] MEDS: Lactobacillus 1 EACH CAP.SPRINK PO SCH ×2 (09:10→19:51)
[2021-11-30] MEDS: Vancomycin Oral Soln 125 MG/2.5 ML UDC PO SCH ×4 (09:10→19:52)
[2021-11-30] MEDS: predniSONE 10 MG TABLET PO SCH (09:11)
[2021-11-30] MEDS: Cholestyramine 4 GM POWD.PACK PO SCH ×3 (09:11→16:48)
[2021-11-30] MEDS: Sodium Bicarbonate 150 MEQ in D5% in Water 1,000 ML IVC SCH (11:42)
[2021-12-01] MEDS ORDERED: Albumin 25% 25gram/100mL 25 GM/100 ML IV.SOLN IVPB ONE (00:16)
[2021-12-01] MEDS ORDERED: Hydrocortisone Sodium Succ 100 MG/2 ML VIAL IVP ONE (04:06)
[2021-12-01] MEDS ORDERED: Hydrocortisone Sodium Succ 100 MG/2 ML VIAL IVP SCH (04:15)
[2021-12-01 04:35] LABS: Basophils % 0.2 %; Hematocrit 25.2 % (35.3-44.9); Mean Corpuscular Volume 87.2 fL (83.0-100.0); Red Blood Count 2.89 M/mcL (3.82-4.97)
[2021-12-01 04:37] LABS: Eosinophils # 0.1 K/mcL (0.0-0.6); Eosinophils % 2.7 %; Hemoglobin 7.9 g/dL (11.5-15.4); Immature Granulocytes % 0.2 % (0-4); Immature Platelets 2.3 % (1.1-6.1); Lymphocytes # 1.4 K/mcL (0.6-4.6); Lymphocytes % 34.1 %; Mean Corpuscular HGB Conc 31.3 g/dL (31.6-35.5); Mean Corpuscular Hemoglobin 27.3 pg (28.0-33.3); Mean Platelet Volume 11.2 fL (9.4-12.4); Monocytes # 0.3 K/mcL (0.0-1.3); Monocytes % 6.3 %; Neutrophils # 2.3 K/mcL (1.6-8.9); Red Cell Distribution Width 18.6 % (11.5-14.5); Segmented Neutrophils % 56.5 %; White Blood Count 4.1 K/mcL (4.3-11.1)
[2021-12-01 04:38] LABS: Platelet Count 95 K/mcL (140-400)
[2021-12-01 04:58] LABS: Calcium 6.4 mg/dL (8.6-10.3); Potassium 2.9 mEq/L (3.5-5.1)
[2021-12-01 05:11] LABS: Thyroid Stimulating Hormone 2.884 mcIU/mL (0.340-5.600)
[2021-12-01 05:22] LABS: Albumin 2.5 g/dL (3.5-5.7); Albumin/Globulin Ratio 1.7 (1.1-2.2); Bilirubin,Total 0.5 mg/dL (0.3-1.0); Globulin 1.5 g/dL (2.4-3.5)
[2021-12-01] MEDS: Calcium Gluconate 1gm/50mL 1 GM/50 ML BAG IVPB SCH ×2 (05:49→06:51)
[2021-12-01] MEDS: Hydrocortisone Sodium Succ 100 MG/2 ML VIAL IVP SCH ×3 (05:52→16:24)
[2021-12-01] MEDS: *HR* Heparin 5,000 UNIT/ML VIAL SQ SCH ×3 (06:01→21:49)
[2021-12-01] MEDS ORDERED: 0.9 % Sodium Chloride 1,000 ML IVC ONE (07:15)
[2021-12-01] MEDS: Lactobacillus 1 EACH CAP.SPRINK PO SCH ×2 (08:16→21:49)
[2021-12-01] MEDS: Vancomycin Oral Soln 125 MG/2.5 ML UDC PO SCH ×4 (08:16→21:52)
[2021-12-01] MEDS: Cholestyramine 4 GM POWD.PACK PO SCH ×4 (08:16→16:24)
[2021-12-01] MEDS: Psyllium 1 PACKET POWD.PACK PO SCH ×3 (10:47→21:49)
[2021-12-01] MEDS: 0.9 % Sodium Chloride 1,000 ML IVC SCH ×3 (11:27→21:48)
[2021-12-02] MEDS: Hydrocortisone Sodium Succ 100 MG/2 ML VIAL IVP SCH ×4 (00:45→23:12)
[2021-12-02] MEDS: 0.9 % Sodium Chloride 1,000 ML IVC SCH ×3 (04:26→18:37)
[2021-12-02] MEDS: *HR* Heparin 5,000 UNIT/ML VIAL SQ SCH ×3 (06:06→19:39)
[2021-12-02 06:25] LABS: Eosinophils % 0.2 %; Hematocrit 26.4 % (35.3-44.9); Hemoglobin 8.3 g/dL (11.5-15.4); Immature Granulocytes % 0.7 % (0-4); Lymphocytes # 1.3 K/mcL (0.6-4.6); Lymphocytes % 23.1 %; Mean Corpuscular HGB Conc 31.4 g/dL (31.6-35.5); Mean Corpuscular Hemoglobin 27.6 pg (28.0-33.3); Mean Corpuscular Volume 87.7 fL (83.0-100.0); Mean Platelet Volume 10.4 fL (9.4-12.4); Monocytes # 0.3 K/mcL (0.0-1.3); Monocytes % 5.1 %; Neutrophils # 3.9 K/mcL (1.6-8.9); Platelet Count 111 K/mcL (140-400); Red Blood Count 3.01 M/mcL (3.82-4.97); Red Cell Distribution Width 18.6 % (11.5-14.5); Segmented Neutrophils % 70.9 %; White Blood Count 5.5 K/mcL (4.3-11.1)
[2021-12-02 06:45] LABS: Calcium 6.7 mg/dL (8.6-10.3); Magnesium 1.4 mg/dL (1.6-2.6); Phosphorous 1.8 mg/dL (2.7-4.5); Potassium 3.6 mEq/L (3.5-5.1)
[2021-12-02] MEDS: Lactobacillus 1 EACH CAP.SPRINK PO SCH ×2 (08:16→19:38)
[2021-12-02] MEDS: Cholestyramine 4 GM POWD.PACK PO SCH ×3 (08:18→16:36)
[2021-12-02] MEDS: Vancomycin Oral Soln 125 MG/2.5 ML UDC PO SCH ×3 (08:19→19:39)
[2021-12-02] MEDS: Psyllium 1 PACKET POWD.PACK PO SCH ×3 (09:55→19:39)
[2021-12-02] MEDS: valACYclovir 500 MG TABLET PO SCH ×2 (12:13→19:40)
[2021-12-03 03:45] LABS: Eosinophils % 0.2 %; Hematocrit 26.3 % (35.3-44.9); Hemoglobin 8.2 g/dL (11.5-15.4); Immature Granulocytes % 0.6 % (0-4); Lymphocytes # 1.8 K/mcL (0.6-4.6); Mean Corpuscular HGB Conc 31.2 g/dL (31.6-35.5); Mean Corpuscular Hemoglobin 27.7 pg (28.0-33.3); Mean Corpuscular Volume 88.9 fL (83.0-100.0); Mean Platelet Volume 10.5 fL (9.4-12.4); Monocytes # 0.3 K/mcL (0.0-1.3); Monocytes % 4.1 %; Neutrophils # 4.3 K/mcL (1.6-8.9); Platelet Count 151 K/mcL (140-400); Red Blood Count 2.96 M/mcL (3.82-4.97); Red Cell Distribution Width 18.8 % (11.5-14.5); Segmented Neutrophils % 67.1 %; White Blood Count 6.4 K/mcL (4.3-11.1)
[2021-12-03 03:52] LABS: Calcium 6.8 mg/dL (8.6-10.3); Magnesium 1.7 mg/dL (1.6-2.6); Phosphorous 3.2 mg/dL (2.7-4.5); Potassium 3.2 mEq/L (3.5-5.1)
[2021-12-03] MEDS: *HR* Heparin 5,000 UNIT/ML VIAL SQ SCH ×3 (05:10→22:15)
[2021-12-03] MEDS ORDERED: 0.9 % Sodium Chloride 500 ML IVC ONE (07:21)
[2021-12-03] MEDS: Cholestyramine 4 GM POWD.PACK PO SCH ×3 (07:50→17:42)
[2021-12-03] MEDS: Vancomycin Oral Soln 125 MG/2.5 ML UDC PO SCH ×3 (07:52→22:12)
[2021-12-03] MEDS: Lactobacillus 1 EACH CAP.SPRINK PO SCH ×2 (07:52→22:12)
[2021-12-03] MEDS: valACYclovir 500 MG TABLET PO SCH ×2 (07:52→22:12)
[2021-12-03] MEDS: Hydrocortisone Sodium Succ 100 MG/2 ML VIAL IVP SCH ×2 (07:54→17:40)
[2021-12-03] MEDS: Psyllium 1 PACKET POWD.PACK PO SCH ×3 (09:30→22:15)
[2021-12-03] MEDS: Albumin 25% 25gram/100mL 25 GM/100 ML IV.SOLN IVPB SCH (16:40)
[2021-12-04] MEDS: Albumin 25% 25gram/100mL 25 GM/100 ML IV.SOLN IVPB SCH ×4 (01:11→23:58)
[2021-12-04] MEDS: Hydrocortisone Sodium Succ 100 MG/2 ML VIAL IVP SCH ×2 (01:14→09:10)
[2021-12-04] MEDS: *HR* Heparin 5,000 UNIT/ML VIAL SQ SCH ×3 (05:13→23:59)
[2021-12-04 05:58] LABS: Hematocrit 23.8 % (35.3-44.9); Hemoglobin 7.5 g/dL (11.5-15.4); Immature Granulocytes % 0.3 % (0-4); Lymphocytes # 1.1 K/mcL (0.6-4.6); Lymphocytes % 27.6 %; Mean Corpuscular HGB Conc 31.5 g/dL (31.6-35.5); Mean Corpuscular Hemoglobin 28.3 pg (28.0-33.3); Mean Corpuscular Volume 89.8 fL (83.0-100.0); Mean Platelet Volume 10.1 fL (9.4-12.4); Monocytes # 0.2 K/mcL (0.0-1.3); Monocytes % 4.4 %; Neutrophils # 2.6 K/mcL (1.6-8.9); Platelet Count 101 K/mcL (140-400); Red Blood Count 2.65 M/mcL (3.82-4.97); Red Cell Distribution Width 18.6 % (11.5-14.5); Segmented Neutrophils % 66.7 %; White Blood Count 3.9 K/mcL (4.3-11.1)
[2021-12-04 06:26] LABS: Calcium 7.1 mg/dL (8.6-10.3); Magnesium 1.9 mg/dL (1.6-2.6); Phosphorous 2.2 mg/dL (2.7-4.5); Potassium 2.9 mEq/L (3.5-5.1)
[2021-12-04] MEDS: valACYclovir 500 MG TABLET PO SCH ×2 (09:05→20:58)
[2021-12-04] MEDS: Vancomycin Oral Soln 125 MG/2.5 ML UDC PO SCH ×3 (09:05→20:57)
[2021-12-04] MEDS: Lactobacillus 1 EACH CAP.SPRINK PO SCH ×2 (09:06→20:58)
[2021-12-04] MEDS: Cholestyramine 4 GM POWD.PACK PO SCH ×3 (09:06→16:49)
[2021-12-04] MEDS: Psyllium 1 PACKET POWD.PACK PO SCH ×3 (09:08→20:58)
[2021-12-04] MEDS: Hydrocortisone 10 MG TABLET PO SCH ×2 (09:08→20:57)
[2021-12-05] MEDS: *HR* Heparin 5,000 UNIT/ML VIAL SQ SCH (05:04)
[2021-12-05 05:26] LABS: Immature Granulocytes % 0.5 % (0-4); Red Cell Distribution Width 18.4 % (11.5-14.5)
[2021-12-05 05:28] LABS: Hematocrit 23.2 % (35.3-44.9); Hemoglobin 7.3 g/dL (11.5-15.4); Immature Platelets 2.6 % (1.1-6.1); Lymphocytes % 27.2 %; Mean Corpuscular HGB Conc 31.5 g/dL (31.6-35.5); Mean Corpuscular Volume 88.9 fL (83.0-100.0); Mean Platelet Volume 10.7 fL (9.4-12.4); Monocytes # 0.2 K/mcL (0.0-1.3); Monocytes % 5.2 %; Neutrophils # 2.5 K/mcL (1.6-8.9); Red Blood Count 2.61 M/mcL (3.82-4.97); Segmented Neutrophils % 66.1 %; White Blood Count 3.8 K/mcL (4.3-11.1)
[2021-12-05 05:35] LABS: Platelet Count 95 K/mcL (140-400); Platelet Estimate Decreased (Normal)
[2021-12-05 06:12] LABS: Calcium 7.7 mg/dL (8.6-10.3); Magnesium 1.7 mg/dL (1.6-2.6); Phosphorous 1.9 mg/dL (2.7-4.5); Potassium 3.8 mEq/L (3.5-5.1)
[2021-12-05] MEDS: Hydrocortisone 10 MG TABLET PO SCH (08:29)
[2021-12-05] MEDS: Vancomycin Oral Soln 125 MG/2.5 ML UDC PO SCH (08:29)
[2021-12-05] MEDS: valACYclovir 500 MG TABLET PO SCH (08:29)
[2021-12-05] MEDS: Cholestyramine 4 GM POWD.PACK PO SCH ×2 (08:30→12:06)
[2021-12-05] MEDS: Psyllium 1 PACKET POWD.PACK PO SCH (08:30)
[2021-12-05] MEDS: Albumin 25% 25gram/100mL 25 GM/100 ML IV.SOLN IVPB SCH (08:30)
[2021-12-05] MEDS: Lactobacillus 1 EACH CAP.SPRINK PO SCH (08:30)
[2021-12-05 08:57] VITALS: BP 97/42; PULSE 101; TEMP 97.3; O2SAT 94
[2021-12-05 13:13] LABS: Adenovirus Not Detected (Not Detect); Bordetella Pertussis Not Detected (Not Detect); Chlamydophila pneumoniae Not Detected (Not Detect); Coronavirus 229E Not Detected (Not Detect); Coronavirus HKU1 Not Detected (Not Detect); Coronavirus NL63 Not Detected (Not Detect); Coronavirus OC43 Not Detected (Not Detect); Human Metapneumovirus Not Detected (Not Detect); Human Rhinovirus/Enterovirus Not Detected (Not Detect); Influenza A Subtype 2009 H1 Not Detected (Not Detect); Influenza B Not Detected (Not Detect); Mycoplasma pneumoniae Not Detected (Not Detect); Parainfluenza Virus 1 Not Detected (Not Detect); Parainfluenza Virus 2 Not Detected (Not Detect); Parainfluenza Virus 3 Not Detected (Not Detect); Parainfluenza Virus 4 Not Detected (Not Detect); Respiratory Syncytial Virus Not Detected (Not Detect); SARS-CoV-2 Not Detected (Not Detect)
[2021-12-10] MEDS ORDERED: Vancomycin Oral Soln 125 MG/2.5 ML UDC PO SCH (09:00)
[2021-12-17] MEDS ORDERED: Vancomycin Oral Soln 125 MG/2.5 ML UDC PO SCH (09:00)
[2021-12-24] MEDS ORDERED: Vancomycin Oral Soln 125 MG/2.5 ML UDC PO SCH (09:00)
[2021-12-31] MEDS ORDERED: Vancomycin Oral Soln 125 MG/2.5 ML UDC PO SCH (09:00)
[2022-01-01] MEDS ORDERED: Vancomycin Oral Soln 125 MG/2.5 ML UDC PO SCH (09:00)
== END 2021-12-05 14:45 | DRG 371 ==
LOC: 2NENU 12:09 → EMEROOARM 12:09 → SUATTDRO 19:33 → 2NENU 21:07 → SUATTDRO 11-22 11:51
PROVIDERS: ADMIT Internal Medicine; ATTEND Internal Medicine

== ENCOUNTER 2021-12-26 10:45 | Inpatient (IN) ==
[2021-12-26] MEDS ORDERED: 0.9 % Sodium Chloride 1,000 ML IVC ONE ×3 (11:13→18:58)
[2021-12-26 11:48] LABS: Basophils % 0.3 %; Eosinophils % 0.1 %; Hematocrit 42.9 % (35.3-44.9); Hemoglobin 13.9 g/dL (11.5-15.4); Immature Granulocytes % 0.9 % (0-4); Lymphocytes # 3.1 K/mcL (0.6-4.6); Lymphocytes % 20.2 %; Mean Corpuscular HGB Conc 32.4 g/dL (31.6-35.5); Mean Corpuscular Hemoglobin 29.8 pg (28.0-33.3); Mean Corpuscular Volume 91.9 fL (83.0-100.0); Monocytes # 0.4 K/mcL (0.0-1.3); Monocytes % 2.9 %; Neutrophils # 11.4 K/mcL (1.6-8.9); Platelet Count 316 K/mcL (140-400); Red Blood Count 4.67 M/mcL (3.82-4.97); Red Cell Distribution Width 18.6 % (11.5-14.5); Segmented Neutrophils % 75.6 %; White Blood Count 15.1 K/mcL (4.3-11.1)
[2021-12-26 12:19] LABS: Influenza A PCR Negative (Negative); Influenza B PCR Negative (Negative); Resp. Syncytial Virus PCR Negative (Negative)
[2021-12-26 12:36] LABS: SARS-CoV-2 by PCR (In House) Negative (Negative)
[2021-12-26] MEDS ORDERED: Piperacillin/Tazobactam 3.375 GM in 0.9 % Sodium Chloride Mini Bag 100 ML IVPB ONE (12:42)
[2021-12-26 12:44] LABS: BUN/Creatinine Ratio 10 (6-26); Blood Urea Nitrogen 67 mg/dL (8-23); Carbon Dioxide 9 mEq/L (23-29); Chloride 103 mEq/L (98-107); Glucose 111 mg/dL (70-105); Osmolality,Calculated 308 (280-300); Potassium 3.6 mEq/L (3.5-5.1); Sodium 139 mEq/L (136-145); Troponin I < 0.03 ng/mL (< 0.04); eGFR For African Americans 7 (> 60); eGFR For Non-African Americans 6 (> 60)
[2021-12-26 13:39] LABS: Alanine Aminotransferase 14 Units/L (7-52); Albumin 4.2 g/dL (3.5-5.7); Albumin/Globulin Ratio 1.3 (1.1-2.2); Alkaline Phosphatase 101 Units/L (34-104); Aspartate Amino Transferase 16 Units/L (13-39); Bilirubin,Direct 0.1 mg/dL (0.0-0.2); Bilirubin,Indirect 0.5 mg/dL (0.0-1.0); Bilirubin,Total 0.6 mg/dL (0.3-1.0); Globulin 3.3 g/dL (2.4-3.5); Lipase 94 Units/L (11-82); Salicylate < 2.5 mg/dL (15.0-30.0); Total Protein 7.5 g/dL (6.4-8.9)
[2021-12-26] MEDS ORDERED: 0.9 % Sodium Chloride 1,000 ML ONE (13:56)
[2021-12-26] MEDS ORDERED: 0.9 % Sodium Chloride 500 ML IVC ONE (15:17)
[2021-12-26 17:35] LABS: Calcium 7.2 mg/dL (8.6-10.3); Potassium 3.2 mEq/L (3.5-5.1)
[2021-12-26] MEDS: D5% in Lactated Ringers 1,000 ML IVC SCH (18:11)
[2021-12-26] MEDS: Norepinephrine 4 MG/254 ML IV.SOLN IVC SCH ×3 (18:11→22:42)
[2021-12-26] MEDS: Albumin Human 5% 12.5 GM/250 ML IV.SOLN IVC SCH ×2 (19:21→22:11)
[2021-12-26 20:34] LABS: Bacteria,Urine Few per hpf (None-Few); Bilirubin,Urine Negative (Negative); Blood,Urine Moderate (Negative); Clarity,Urine Turbid (Clear); Color,Urine Yellow (Yellow); Glucose,Urine (UA) Normal (Normal); Ketones,Urine Trace mg/dL (Negative); Leukocyte Esterase,Urine Large (Negative); Mucus,Urine Few per lpf (None-Few); Nitrite,Urine Negative (Negative); PH,Urine 5.5 pH Units (5.0-8.0); Protein,Urine 200 mg/dL (Neg-Trace); Specific Gravity,Urine 1.021 (1.010-1.025); Squamous Epithelial Cell,Urine Few per hpf (None-Few); Urobilinogen,Urine Normal (Normal); WBC,Urine 50-100 per hpf (0-3)
[2021-12-26] MEDS ORDERED: Ondansetron ODT 4 MG TAB.RAPDIS SL PRN (23:37)
[2021-12-26] MEDS ORDERED: Melatonin 3 MG TABLET PO PRN (23:37)
[2021-12-26] MEDS ORDERED: Naloxone 0.4 MG/ML INJ IVP PRN (23:37)
[2021-12-27] MEDS: Sodium Bicarbonate 150 MEQ in D5% in Water 1,000 ML IVC SCH ×3 (01:08→21:56)
[2021-12-27 01:15] LABS: VBG Ionized Calcium 0.99 mmol/L (1.15-1.35)
[2021-12-27 01:21] LABS: VBG HCO3 10 mEq/L (21-27); VBG PCO2 22 mmHg (41-51); VBG PH 7.27 pH Units (7.32-7.42); VBG PO2 105 mmHg (25-50)
[2021-12-27 01:25] LABS: Alanine Aminotransferase 7 Units/L (7-52); Albumin 3.2 g/dL (3.5-5.7); Alkaline Phosphatase 52 Units/L (34-104); Aspartate Amino Transferase 7 Units/L (13-39); Bilirubin,Direct 0.1 mg/dL (0.0-0.2); Bilirubin,Indirect 0.3 mg/dL (0.0-1.0); Bilirubin,Total 0.4 mg/dL (0.3-1.0); Calcium 6.9 mg/dL (8.6-10.3); Globulin 1.6 g/dL (2.4-3.5); Potassium 2.6 mEq/L (3.5-5.1); Total Protein 4.8 g/dL (6.4-8.9)
[2021-12-27] MEDS ORDERED: Potassium Chloride Elixir 20 MEQ/15 ML UDC PO ONE (01:35)
[2021-12-27] MEDS: Calcium Gluconate 1gm/50mL 1 GM/50 ML BAG IVPB PRN ×4 (02:01→20:43)
[2021-12-27 02:44] LABS: Basophils % 0.3 %; Eosinophils % 0.3 %; Hematocrit 25.8 % (35.3-44.9); Immature Granulocytes % 0.6 % (0-4); Lymphocytes # 3.1 K/mcL (0.6-4.6); Lymphocytes % 25.1 %; Mean Corpuscular HGB Conc 32.9 g/dL (31.6-35.5); Mean Corpuscular Hemoglobin 29.6 pg (28.0-33.3); Mean Corpuscular Volume 89.9 fL (83.0-100.0); Monocytes # 0.7 K/mcL (0.0-1.3); Monocytes % 5.9 %; Neutrophils # 8.3 K/mcL (1.6-8.9); Platelet Count 200 K/mcL (140-400); Red Blood Count 2.87 M/mcL (3.82-4.97); Red Cell Distribution Width 18.5 % (11.5-14.5); Segmented Neutrophils % 67.8 %; White Blood Count 12.3 K/mcL (4.3-11.1)
[2021-12-27 02:50] LABS: Hemoglobin 8.5 g/dL (11.5-15.4)
[2021-12-27] MEDS ORDERED: Albumin 25% 25gram/100mL 25 GM/100 ML IV.SOLN IVPB ONE (05:11)
[2021-12-27 05:21] LABS: Adenovirus F 40/41 PCR Not detected (Not detect); Astrovirus PCR Not detected (Not detect); C.difficile Toxin A/B Gene PCR Not detected (Not detect); Campylobacter by PCR Not detected (Not detect); Cryptosporidium by PCR Not detected (Not detect); Cyclospora cayetanensis PCR Not detected (Not detect); Entamoeba histolytica PCR Not detected (Not detect); Enteroaggregative E.coli(EAEC) Not detected (Not detect); Enteropathogenic E.coli(EPEC) Not detected (Not detect); Enterotoxigenic E.coli (ETEC) Not detected (Not detect); Giardia lamblia PCR Not detected (Not detect); Norovirus GI/GII PCR Not detected (Not detect); Plesiomonas shigelloides PCR Not detected (Not detect); Rotavirus A PCR Not detected (Not detect); Salmonella PCR Not detected (Not detect); Sapovirus PCR Not detected (Not detect); Shig/EnteroinvasiveE coli EIEC Not detected (Not detect); Shigalike tox-prod E coli STEC Not detected (Not detect); Vibrio PCR Not detected (Not detect); Vibrio cholerae PCR Not detected (Not detect); Yersinia enterocolitica PCR Not detected (Not detect)
[2021-12-27] MEDS: Piperacillin/Tazobactam 3.375 GM in 0.9 % Sodium Chloride Mini Bag 100 ML IVPB SCH ×2 (06:17→17:02)
[2021-12-27] MEDS ORDERED: Hydrocortisone Sodium Succ 100 MG/2 ML VIAL IVP SCH (06:18)
[2021-12-27] MEDS ORDERED: Ondansetron ODT 4 MG TAB.RAPDIS SL PRN (06:31)
[2021-12-27] MEDS ORDERED: Cyanocobalamin (B-12) 1,000 MCG/ML VIAL IM SCH (06:45)
[2021-12-27 07:00] LABS: VBG HCO3 16 mEq/L (21-27); VBG PCO2 42 mmHg (41-51); VBG PH 7.19 pH Units (7.32-7.42); VBG PO2 147 mmHg (25-50)
[2021-12-27 07:30] LABS: Basophils % 0.3 %; Eosinophils # 0.1 K/mcL (0.0-0.6); Eosinophils % 0.9 %; Hematocrit 23.9 % (35.3-44.9); Immature Granulocytes % 0.6 % (0-4); Lymphocytes # 2.4 K/mcL (0.6-4.6); Lymphocytes % 26.9 %; Mean Corpuscular HGB Conc 33.5 g/dL (31.6-35.5); Mean Corpuscular Hemoglobin 30.1 pg (28.0-33.3); Mean Corpuscular Volume 89.8 fL (83.0-100.0); Mean Platelet Volume 11.2 fL (9.4-12.4); Monocytes # 0.6 K/mcL (0.0-1.3); Monocytes % 6.3 %; Neutrophils # 5.9 K/mcL (1.6-8.9); Platelet Count 180 K/mcL (140-400); Red Blood Count 2.66 M/mcL (3.82-4.97); Red Cell Distribution Width 18.5 % (11.5-14.5)
[2021-12-27] MEDS: Magnesium Oxide 400 MG TABLET PO SCH ×2 (07:53→20:08)
[2021-12-27] MEDS: Cholecalciferol (D-3) 1,000 UNIT (25MCG) TABLET PO SCH (07:53)
[2021-12-27] MEDS: Psyllium 1 PACKET POWD.PACK PO SCH ×3 (07:53→20:07)
[2021-12-27] MEDS: Cholestyramine 4 GM POWD.PACK PO SCH ×3 (07:53→14:55)
[2021-12-27] MEDS: Lactobacillus 1 EACH CAP.SPRINK PO SCH ×2 (07:54→20:08)
[2021-12-27] MEDS: Hydrocortisone Sodium Succ 100 MG/2 ML VIAL IVP SCH ×4 (07:54→22:58)
[2021-12-27] MEDS: D5% in Lactated Ringers 1,000 ML IVC SCH ×3 (07:56→15:07)
[2021-12-27 08:54] LABS: Calcium 7.6 mg/dL (8.6-10.3); Potassium 2.8 mEq/L (3.5-5.1)
[2021-12-27] MEDS ORDERED: Hydrocortisone 10 MG TABLET PO SCH (09:00)
[2021-12-27 09:21] LABS: VBG Ionized Calcium 1.05 mmol/L (1.15-1.35)
[2021-12-27 09:36] LABS: Albumin 3.3 g/dL (3.5-5.7); Albumin/Globulin Ratio 2.4 (1.1-2.2); Bilirubin,Total 0.4 mg/dL (0.3-1.0); Calcium 7.4 mg/dL (8.6-10.3); Globulin 1.4 g/dL (2.4-3.5); Magnesium 1.5 mg/dL (1.6-2.6); Phosphorous 3.2 mg/dL (2.7-4.5); Potassium 2.7 mEq/L (3.5-5.1); Total Protein 4.7 g/dL (6.4-8.9)
[2021-12-27 10:13] LABS: Creatine Kinase < 10 Units/L (30-223)
[2021-12-27 10:40] LABS: Hematocrit 22.7 % (35.3-44.9); Hemoglobin 7.7 g/dL (11.5-15.4)
[2021-12-27] MEDS: Norepinephrine 4 MG/254 ML IV.SOLN IVC SCH (11:46)
[2021-12-27] MEDS: Potassium Chloride 40 MEQ/200 ML BAG IVPB PRN ×3 (12:21→21:57)
[2021-12-27] MEDS: Multivit/Ca/Min/Fe/FA 1 TAB TABLET PO SCH (12:23)
[2021-12-27 14:13] LABS: Calcium 7.8 mg/dL (8.6-10.3); Potassium 4.1 mEq/L (3.5-5.1)
[2021-12-27 18:36] LABS: VBG Ionized Calcium 1.07 mmol/L (1.15-1.35)
[2021-12-27 18:48] LABS: Magnesium 1.9 mg/dL (1.6-2.6); Potassium 3.2 mEq/L (3.5-5.1)
[2021-12-27] MEDS: *HR* Heparin 5,000 UNIT/ML VIAL SQ SCH (22:58)
[2021-12-28 02:58] LABS: VBG Ionized Calcium 1.08 mmol/L (1.15-1.35)
[2021-12-28 03:02] LABS: Basophils % 0.1 %; Hematocrit 22.9 % (35.3-44.9); Hemoglobin 7.8 g/dL (11.5-15.4); Immature Granulocytes % 0.8 % (0-4); Lymphocytes # 1.5 K/mcL (0.6-4.6); Lymphocytes % 16.6 %; Mean Corpuscular HGB Conc 34.1 g/dL (31.6-35.5); Mean Corpuscular Hemoglobin 29.7 pg (28.0-33.3); Mean Corpuscular Volume 87.1 fL (83.0-100.0); Mean Platelet Volume 10.8 fL (9.4-12.4); Monocytes # 0.2 K/mcL (0.0-1.3); Monocytes % 2.2 %; Neutrophils # 7.4 K/mcL (1.6-8.9); Platelet Count 176 K/mcL (140-400); Red Blood Count 2.63 M/mcL (3.82-4.97); Red Cell Distribution Width 18.9 % (11.5-14.5); Segmented Neutrophils % 80.3 %; White Blood Count 9.3 K/mcL (4.3-11.1)
[2021-12-28 03:19] LABS: Calcium 7.7 mg/dL (8.6-10.3); Potassium 3.8 mEq/L (3.5-5.1)
[2021-12-28] MEDS: Acetaminophen 325 MG TABLET PO PRN ×2 (04:07→23:58)
[2021-12-28 04:59] LABS: Magnesium 2.5 mg/dL (1.6-2.6); Phosphorous 2.1 mg/dL (2.7-4.5)
[2021-12-28] MEDS: Potassium Chloride 40 MEQ/200 ML BAG IVPB PRN ×2 (05:03→06:19)
[2021-12-28] MEDS: Calcium Gluconate 1gm/50mL 1 GM/50 ML BAG IVPB PRN ×3 (05:03→19:54)
[2021-12-28] MEDS: Piperacillin/Tazobactam 3.375 GM in 0.9 % Sodium Chloride Mini Bag 100 ML IVPB SCH ×2 (05:04→16:48)
[2021-12-28] MEDS: Hydrocortisone Sodium Succ 100 MG/2 ML VIAL IVP SCH ×4 (05:04→23:46)
[2021-12-28] MEDS: *HR* Heparin 5,000 UNIT/ML VIAL SQ SCH ×2 (05:04→16:48)
[2021-12-28] MEDS: Norepinephrine 4 MG/254 ML IV.SOLN IVC SCH (07:25)
[2021-12-28] MEDS: D5% in Lactated Ringers 1,000 ML IVC SCH ×2 (07:28→09:24)
[2021-12-28] MEDS: Sodium Bicarbonate 150 MEQ in D5% in Water 1,000 ML IVC SCH (09:26)
[2021-12-28] MEDS: Magnesium Oxide 400 MG TABLET PO SCH ×2 (10:19→19:54)
[2021-12-28] MEDS: Psyllium 1 PACKET POWD.PACK PO SCH ×3 (10:19→19:53)
[2021-12-28] MEDS: Lactobacillus 1 EACH CAP.SPRINK PO SCH ×2 (10:19→19:54)
[2021-12-28] MEDS: Cholecalciferol (D-3) 1,000 UNIT (25MCG) TABLET PO SCH (10:19)
[2021-12-28] MEDS: Cholestyramine 4 GM POWD.PACK PO SCH ×3 (10:19→16:47)
[2021-12-28] MEDS: Multivit/Ca/Min/Fe/FA 1 TAB TABLET PO SCH (10:20)
[2021-12-28 12:12] LABS: VBG Ionized Calcium 1.08 mmol/L (1.15-1.35)
[2021-12-28 12:27] LABS: Calcium 7.7 mg/dL (8.6-10.3); Potassium 4.5 mEq/L (3.5-5.1)
[2021-12-28] MEDS ORDERED: 0.9 % Sodium Chloride 1,000 ML IVC ONE (12:30)
[2021-12-28] MEDS: Ringers Solution, Lactated 1,000 ML IVC SCH ×2 (13:55→19:55)
[2021-12-28] MEDS ORDERED: Vancomycin 500 MG in 0.9 % Sodium Chloride Mini Bag 100 ML IVPB ONE (14:00)
[2021-12-28 17:47] LABS: VBG Ionized Calcium 1.09 mmol/L (1.15-1.35)
[2021-12-28 17:48] LABS: Basophils % 0.1 %; Hemoglobin 7.3 g/dL (11.5-15.4); Immature Granulocytes % 0.6 % (0-4); Lymphocytes # 1.3 K/mcL (0.6-4.6); Lymphocytes % 16.9 %; Mean Corpuscular HGB Conc 33.2 g/dL (31.6-35.5); Mean Corpuscular Hemoglobin 29.4 pg (28.0-33.3); Mean Corpuscular Volume 88.7 fL (83.0-100.0); Mean Platelet Volume 11.2 fL (9.4-12.4); Monocytes # 0.2 K/mcL (0.0-1.3); Monocytes % 3.1 %; Neutrophils # 6.2 K/mcL (1.6-8.9); Platelet Count 143 K/mcL (140-400); Red Blood Count 2.48 M/mcL (3.82-4.97); Red Cell Distribution Width 19.1 % (11.5-14.5); Segmented Neutrophils % 79.3 %; White Blood Count 7.8 K/mcL (4.3-11.1)
[2021-12-28 18:04] LABS: Calcium 7.7 mg/dL (8.6-10.3); Potassium 4.3 mEq/L (3.5-5.1)
[2021-12-29] MEDS: Ringers Solution, Lactated 1,000 ML IVC SCH ×4 (02:37→21:56)
[2021-12-29 04:12] LABS: VBG Ionized Calcium 1.12 mmol/L (1.15-1.35)
[2021-12-29 04:14] LABS: Calcium 7.8 mg/dL (8.6-10.3); Magnesium 1.9 mg/dL (1.6-2.6)
[2021-12-29 04:24] LABS: VBG Ionized Calcium 1.23 mmol/L (1.15-1.35)
[2021-12-29] MEDS: Piperacillin/Tazobactam 3.375 GM in 0.9 % Sodium Chloride Mini Bag 100 ML IVPB SCH (06:00)
[2021-12-29] MEDS: Hydrocortisone Sodium Succ 100 MG/2 ML VIAL IVP SCH ×2 (06:01→11:44)
[2021-12-29] MEDS: *HR* Heparin 5,000 UNIT/ML VIAL SQ SCH ×2 (06:01→17:11)
[2021-12-29] MEDS: Norepinephrine 4 MG/254 ML IV.SOLN IVC SCH (07:19)
[2021-12-29] MEDS: Cholestyramine 4 GM POWD.PACK PO SCH ×3 (08:40→17:12)
[2021-12-29] MEDS: Psyllium 1 PACKET POWD.PACK PO SCH ×3 (08:40→21:58)
[2021-12-29] MEDS: Multivit/Ca/Min/Fe/FA 1 TAB TABLET PO SCH (08:42)
[2021-12-29] MEDS: Cholecalciferol (D-3) 1,000 UNIT (25MCG) TABLET PO SCH (08:42)
[2021-12-29] MEDS: Magnesium Oxide 400 MG TABLET PO SCH (08:42)
[2021-12-29] MEDS: Lactobacillus 1 EACH CAP.SPRINK PO SCH ×2 (08:43→21:58)
[2021-12-29] MEDS ORDERED: Fluconazole 100 MG TABLET PO SCH (11:30)
[2021-12-29 12:13] LABS: Hematocrit 22.7 % (35.3-44.9); Hemoglobin 7.5 g/dL (11.5-15.4); Immature Granulocytes % 0.8 % (0-4); Lymphocytes # 1.6 K/mcL (0.6-4.6); Mean Corpuscular Hemoglobin 29.9 pg (28.0-33.3); Mean Corpuscular Volume 90.4 fL (83.0-100.0); Mean Platelet Volume 11.1 fL (9.4-12.4); Monocytes # 0.4 K/mcL (0.0-1.3); Neutrophils # 7.2 K/mcL (1.6-8.9); Platelet Count 141 K/mcL (140-400); Red Blood Count 2.51 M/mcL (3.82-4.97); Red Cell Distribution Width 19.4 % (11.5-14.5); Segmented Neutrophils % 78.2 %; White Blood Count 9.3 K/mcL (4.3-11.1)
[2021-12-29 12:33] LABS: Calcium 7.6 mg/dL (8.6-10.3); Magnesium 2.3 mg/dL (1.6-2.6); Potassium 4.1 mEq/L (3.5-5.1)
[2021-12-29] MEDS ORDERED: Acetaminophen 325 MG TABLET PO PRN (14:04)
[2021-12-29] MEDS ORDERED: Melatonin 3 MG TABLET PO PRN (14:04)
[2021-12-29] MEDS ORDERED: Naloxone 0.4 MG/ML INJ IVP PRN (14:04)
[2021-12-29] MEDS: Ondansetron 4 MG/2 ML VIAL IVP PRN (17:11)
[2021-12-29] MEDS ORDERED: Norepinephrine 4 MG/254 ML IV.SOLN IVC SCH (19:30)
[2021-12-29 20:18] LABS: Prothrombin Time 11.3 Seconds (9.4-12.1)
[2021-12-29 20:20] LABS: Activated Partial Thrombo Time 27.1 Seconds (26.0-36.0)
[2021-12-29] MEDS ORDERED: Magnesium Oxide 400 MG TABLET PO SCH (21:00)
[2021-12-29] MEDS ORDERED: Hydrocortisone 10 MG TABLET PO SCH (21:00)
[2021-12-29] MEDS ORDERED: *HR* FentaNYL (PF) 100 MCG/2 ML VIAL ONE (21:35)
[2021-12-29] MEDS ORDERED: *HR* Etomidate 40 MG/20 ML VIAL IVP ONE (21:35)
[2021-12-29] MEDS ORDERED: *HR* Propofol 200 MG/20 ML VIAL IVP ONE (21:36)
[2021-12-29] MEDS ORDERED: Lidocaine -MPF 2% 2 ML VIAL ONE (21:37)
[2021-12-29] MEDS ORDERED: *HR* Rocuronium Bromide 50 MG/5 ML VIAL ONE (21:37)
[2021-12-29] MEDS ORDERED: Heparin 1,000 UNITS/500 mL 500 ML ONE (21:39)
[2021-12-29] MEDS ORDERED: *HR* Vasopressin 20 UNIT/ML VIAL ONE (21:40)
[2021-12-29] MEDS ORDERED: *HR* Norepinephrine 4 MG/4 ML VIAL IVC ONE (21:40)
[2021-12-29] MEDS ORDERED: Albumin Human 5% 25.0 GM/500 ML IV.SOLN ONE (21:47)
[2021-12-29] MEDS: Hydrocortisone 10 MG TABLET PO SCH (21:56)
[2021-12-29] MEDS ORDERED: EPHEDrine 50 MG/ML VIAL ONE (21:58)
[2021-12-29] MEDS ORDERED: Piperacillin/Tazobactam 3.375 GM in 0.9 % Sodium Chloride Mini Bag 100 ML IVPB ONE (23:00)
[2021-12-30] MEDS ORDERED: *HR* Midazolam HCl 2 MG/2 ML VIAL ONE (00:23)
[2021-12-30 00:37] LABS: ABG Base Excess -6 mEq/L (-2 to 3); ABG HCO3 19 mEq/L (21-27); ABG Oxygen Saturation 99 % (95-98); ABG PCO2 34 mmHg (35-45); ABG PH 7.35 pH Units (7.32-7.45); ABG PO2 144 mmHg (85-104); ABG TCO2 20 mEq/L (20-26)
[2021-12-30] MEDS ORDERED: DESMOPRESSIN ACETATE IVPB ONE (01:20)
[2021-12-30] MEDS ORDERED: SODIUM CHLORIDE 0.9% IVPB ONE (01:20)
[2021-12-30 01:28] LABS: Hematocrit 27.1 % (35.3-44.9); Hemoglobin 8.9 g/dL (11.5-15.4)
[2021-12-30] MEDS ORDERED: Albumin Human 5% 12.5 GM/250 ML IV.SOLN ONE (01:33)
[2021-12-30 01:37] LABS: INR 1.2; Prothrombin Time 13.8 Seconds (9.4-12.1)
[2021-12-30] MEDS: Norepinephrine 4 MG/254 ML IV.SOLN IVC SCH ×6 (02:20→13:03)
[2021-12-30] MEDS ORDERED: 0.9 % Sodium Chloride 500 ML ONE (03:04)
[2021-12-30] MEDS: FentaNYL (PF) 1,000 MCG/100 ML IV.SOLN IVC SCH ×2 (03:30→19:40)
[2021-12-30 03:42] LABS: VBG Ionized Calcium 1.04 mmol/L (1.15-1.35)
[2021-12-30 03:50] LABS: Basophils % 0.1 %; Eosinophils % 0.1 %; Hematocrit 24.2 % (35.3-44.9); Immature Granulocytes % 0.9 % (0-4); Lymphocytes # 1.2 K/mcL (0.6-4.6); Lymphocytes % 15.1 %; Mean Corpuscular HGB Conc 33.1 g/dL (31.6-35.5); Mean Corpuscular Hemoglobin 30.2 pg (28.0-33.3); Mean Corpuscular Volume 91.3 fL (83.0-100.0); Mean Platelet Volume 10.7 fL (9.4-12.4); Monocytes # 0.1 K/mcL (0.0-1.3); Monocytes % 1.1 %; Neutrophils # 6.6 K/mcL (1.6-8.9); Nucleated Red Blood Cells 0.2 /100 WBC (0); Platelet Count 139 K/mcL (140-400); Red Blood Count 2.65 M/mcL (3.82-4.97); Red Cell Distribution Width 17.5 % (11.5-14.5); Segmented Neutrophils % 82.7 %
[2021-12-30 04:10] LABS: Albumin 2.6 g/dL (3.5-5.7); Albumin/Globulin Ratio 3.7 (1.1-2.2); Bilirubin,Total 0.8 mg/dL (0.3-1.0); Calcium 6.7 mg/dL (8.6-10.3); Globulin 0.7 g/dL (2.4-3.5); Magnesium 1.7 mg/dL (1.6-2.6); Phosphorous 3.3 mg/dL (2.7-4.5); Potassium 3.5 mEq/L (3.5-5.1); Total Protein 3.3 g/dL (6.4-8.9)
[2021-12-30] MEDS: Ringers Solution, Lactated 1,000 ML IVC SCH ×4 (04:27→22:50)
[2021-12-30 04:29] LABS: ABG Base Excess -10 mEq/L (-2 to 3); ABG HCO3 16 mEq/L (21-27); ABG Oxygen Saturation 98 % (95-98); ABG PCO2 33 mmHg (35-45); ABG PH 7.29 pH Units (7.32-7.45); ABG PO2 107 mmHg (85-104); ABG TCO2 17 mEq/L (20-26); Blood Gas Modality AF; Blood Gas VT 380 cc
[2021-12-30] MEDS: *HR* Heparin 5,000 UNIT/ML VIAL SQ SCH ×2 (05:31→18:18)
[2021-12-30] MEDS: Cholestyramine 4 GM POWD.PACK PO SCH (07:56)
[2021-12-30] MEDS ORDERED: Cholecalciferol (D-3) 1,000 UNIT (25MCG) TABLET PO SCH (09:00)
[2021-12-30] MEDS ORDERED: Fluconazole 100 MG TABLET PO SCH (09:00)
[2021-12-30] MEDS ORDERED: Multivit/Ca/Min/Fe/FA 1 TAB TABLET PO SCH (09:00)
[2021-12-30] MEDS: Lactobacillus 1 EACH CAP.SPRINK PO SCH (09:58)
[2021-12-30] MEDS: Hydrocortisone 10 MG TABLET PO SCH (09:58)
[2021-12-30] MEDS: Vasopressin 40 UNIT in D5% in Water 100 ML IVC SCH (10:22)
[2021-12-30] MEDS ORDERED: Ertapenem 1,000 MG in 0.9 % Sodium Chloride Mini Bag 100 ML IVPB ONE (10:37)
[2021-12-30] MEDS ORDERED: Artificial Tears SOLN 15 ML BOTTLE BOTH EYES PRN (10:38)
[2021-12-30] MEDS: Hydrocortisone Sodium Succ 100 MG/2 ML VIAL IVP SCH ×2 (11:33→20:31)
[2021-12-30] MEDS: Artificial Tears SOLN 15 ML BOTTLE BOTH EYES SCH ×3 (11:41→20:30)
[2021-12-30] MEDS: Chlorhexidine Rinse 15 ML MOUTHWASH MM SCH ×2 (11:43→20:33)
[2021-12-30] MEDS ORDERED: D10% in Water 500 ML IVC PRN (11:56)
[2021-12-30] MEDS ORDERED: Clinimix E 5%-15% SOLUTION 2,000 ML with MVI, adult with vitamin K 10 ML IVC SCH (17:00)
[2021-12-30] MEDS: Norepinephrine 32 MG in 0.9 % Sodium Chloride 218 ML IVC SCH (17:08)
[2021-12-30] MEDS ORDERED: Ringers Solution, Lactated 1,000 ML IVC ONE (19:08)
[2021-12-30] MEDS ORDERED: Piperacillin/Tazobactam 3.375 GM in 0.9 % Sodium Chloride Mini Bag 100 ML IVPB SCH (20:00)
[2021-12-31] MEDS: Artificial Tears SOLN 15 ML BOTTLE BOTH EYES SCH ×7 (00:55→23:19)
[2021-12-31 03:42] LABS: ABG Base Excess -6 mEq/L (-2 to 3); ABG HCO3 19 mEq/L (21-27); ABG Oxygen Saturation 99 % (95-98); ABG PCO2 33 mmHg (35-45); ABG PH 7.37 pH Units (7.32-7.45); ABG PO2 117 mmHg (85-104); ABG TCO2 20 mEq/L (20-26); Blood Gas VT 400 cc
[2021-12-31] MEDS: Vasopressin 40 UNIT in D5% in Water 100 ML IVC SCH (04:16)
[2021-12-31] MEDS: Ringers Solution, Lactated 1,000 ML IVC SCH ×3 (04:18→23:20)
[2021-12-31 04:27] LABS: VBG Ionized Calcium 1.04 mmol/L (1.15-1.35)
[2021-12-31 04:34] LABS: Basophils % 0.1 %; Eosinophils % 0.1 %; Immature Granulocytes % 1.1 % (0-4)
[2021-12-31 04:36] LABS: Hemoglobin 6.1 g/dL (11.5-15.4); Immature Platelets 5.9 % (1.1-6.1); Lymphocytes # 1.7 K/mcL (0.6-4.6); Lymphocytes % 10.4 %; Mean Corpuscular HGB Conc 35.9 g/dL (31.6-35.5); Mean Corpuscular Hemoglobin 33.5 pg (28.0-33.3); Mean Corpuscular Volume 93.4 fL (83.0-100.0); Monocytes # 0.5 K/mcL (0.0-1.3); Monocytes % 3.1 %; Red Blood Count 1.82 M/mcL (3.82-4.97); Red Cell Distribution Width 18.4 % (11.5-14.5); Segmented Neutrophils % 85.2 %
[2021-12-31 04:38] LABS: Neutrophils # 13.6 K/mcL (1.6-8.9); Platelet Count 83 K/mcL (140-400)
[2021-12-31 04:49] LABS: Magnesium 1.7 mg/dL (1.6-2.6); Phosphorous 3.4 mg/dL (2.7-4.5)
[2021-12-31 04:51] LABS: Albumin 2.1 g/dL (3.5-5.7); Albumin/Globulin Ratio 2.6 (1.1-2.2); Calcium 6.5 mg/dL (8.6-10.3); Globulin 0.8 g/dL (2.4-3.5); Potassium 3.8 mEq/L (3.5-5.1); Total Protein 2.9 g/dL (6.4-8.9)
[2021-12-31 05:19] LABS: Platelet Estimate Decreased (Normal); Smudge Cells Present (Not Present)
[2021-12-31 05:20] LABS: Anisocytosis 1+ (Not Present); Hypochromasia Present (Not Present); Tear Drop Cells 2+ (Not Present)
[2021-12-31 05:24] LABS: INR 1.5; Prothrombin Time 16.8 Seconds (9.4-12.1)
[2021-12-31] MEDS: *HR* Heparin 5,000 UNIT/ML VIAL SQ SCH ×2 (06:05→18:17)
[2021-12-31] MEDS: FentaNYL (PF) 1,000 MCG/100 ML IV.SOLN IVC SCH ×2 (06:05→15:45)
[2021-12-31] MEDS ORDERED: 0.9 % Sodium Chloride 250 ML ONE (06:12)
[2021-12-31] MEDS: Chlorhexidine Rinse 15 ML MOUTHWASH MM SCH ×3 (09:37→20:27)
[2021-12-31] MEDS: Hydrocortisone Sodium Succ 100 MG/2 ML VIAL IVP SCH ×2 (09:37→20:27)
[2021-12-31] MEDS ORDERED: D5% in Water 1,000 ML IVC PRN (10:51)
[2021-12-31] MEDS: Pantoprazole 40 MG VIAL IVP SCH (11:41)
[2021-12-31] MEDS: Insulin LISPRO 300 UNITS/3 ML VIAL SUBQ SCH ×4 (11:45→23:19)
[2021-12-31] MEDS ORDERED: Artificial Tears SOLN 15 ML BOTTLE BOTH EYES PRN (12:27)
[2021-12-31 16:19] LABS: Hemoglobin 7.5 g/dL (11.5-15.4); Red Cell Distribution Width 18.1 % (11.5-14.5)
[2021-12-31 16:20] LABS: Immature Platelets 8.8 % (1.1-6.1); Mean Corpuscular HGB Conc 34.1 g/dL (31.6-35.5); Mean Corpuscular Hemoglobin 29.8 pg (28.0-33.3); Mean Corpuscular Volume 87.3 fL (83.0-100.0); Mean Platelet Volume 12.3 fL (9.4-12.4); Red Blood Count 2.52 M/mcL (3.82-4.97); White Blood Count 17.3 K/mcL (4.3-11.1)
[2021-12-31] MEDS ORDERED: Clinimix E 5%-15% SOLUTION 2,000 ML with MVI, adult with vitamin K 10 ML IVC SCH (17:00)
[2022-01-01] MEDS ORDERED: Amiodarone Premix 150 MG/100 ML BAG IVPB ONE (02:37)
[2022-01-01] MEDS ORDERED: Amiodarone Premix 360 MG/200 ML BAG IVC ONE (02:37)
[2022-01-01] MEDS: FentaNYL (PF) 1,000 MCG/100 ML IV.SOLN IVC SCH ×2 (02:50→16:50)
[2022-01-01 02:54] LABS: Basophils % 0.1 %; Eosinophils % 0.1 %; Hemoglobin 6.6 g/dL (11.5-15.4); Red Cell Distribution Width 18.2 % (11.5-14.5)
[2022-01-01 02:56] LABS: Hematocrit 19.5 % (35.3-44.9); Immature Granulocytes % 1.6 % (0-4); Immature Platelets 9.5 % (1.1-6.1); Lymphocytes # 1.3 K/mcL (0.6-4.6); Lymphocytes % 7.8 %; Mean Corpuscular HGB Conc 33.8 g/dL (31.6-35.5); Mean Corpuscular Hemoglobin 29.6 pg (28.0-33.3); Mean Corpuscular Volume 87.4 fL (83.0-100.0); Mean Platelet Volume 12.4 fL (9.4-12.4); Monocytes # 0.5 K/mcL (0.0-1.3); Neutrophils # 14.3 K/mcL (1.6-8.9); Nucleated Red Blood Cells 0.2 /100 WBC (0); Platelet Count 67 K/mcL (140-400); Red Blood Count 2.23 M/mcL (3.82-4.97); Segmented Neutrophils % 87.4 %; White Blood Count 16.3 K/mcL (4.3-11.1)
[2022-01-01 03:32] LABS: Magnesium 1.7 mg/dL (1.6-2.6); Phosphorous 3.1 mg/dL (2.7-4.5)
[2022-01-01 03:33] LABS: Albumin 1.9 g/dL (3.5-5.7); Albumin/Globulin Ratio 1.6 (1.1-2.2); Bilirubin,Total 0.3 mg/dL (0.3-1.0); Calcium 6.6 mg/dL (8.6-10.3); Globulin 1.2 g/dL (2.4-3.5); Total Protein 3.1 g/dL (6.4-8.9)
[2022-01-01] MEDS ORDERED: Calcium Gluconate 1gm/50mL 1 GM/50 ML BAG IVPB ONE (03:42)
[2022-01-01 03:52] LABS: ABG Base Excess -5 mEq/L (-2 to 3); ABG HCO3 20 mEq/L (21-27); ABG Oxygen Saturation 95 % (95-98); ABG PCO2 36 mmHg (35-45); ABG PH 7.36 pH Units (7.32-7.45); ABG PO2 77 mmHg (85-104); ABG TCO2 22 mEq/L (20-26); Blood Gas Modality ASSIST CONTROL; Blood Gas VT 400 cc
[2022-01-01] MEDS: Vasopressin 40 UNIT in D5% in Water 100 ML IVC SCH (03:54)
[2022-01-01] MEDS: Norepinephrine 32 MG in 0.9 % Sodium Chloride 218 ML IVC SCH ×2 (03:55→14:53)
[2022-01-01] MEDS: Artificial Tears SOLN 15 ML BOTTLE BOTH EYES SCH ×6 (04:02→23:36)
[2022-01-01] MEDS: Insulin LISPRO 300 UNITS/3 ML VIAL SUBQ SCH ×6 (04:02→23:36)
[2022-01-01] MEDS: *HR* Heparin 5,000 UNIT/ML VIAL SQ SCH ×2 (05:39→17:09)
[2022-01-01] MEDS: Chlorhexidine Rinse 15 ML MOUTHWASH MM SCH ×2 (08:50→20:07)
[2022-01-01] MEDS: Hydrocortisone Sodium Succ 100 MG/2 ML VIAL IVP SCH ×2 (08:50→20:07)
[2022-01-01] MEDS: Pantoprazole 40 MG VIAL IVP SCH (08:51)
[2022-01-01 09:18] LABS: Hematocrit 24.1 % (35.3-44.9)
[2022-01-01 09:20] LABS: Hemoglobin 8.3 g/dL (11.5-15.4)
[2022-01-01] MEDS: Insulin DETEMIR 100 UNIT/ML X5UNITS SUBQ SCH ×2 (11:44→20:37)
[2022-01-01 15:53] LABS: Calcium 6.9 mg/dL (8.6-10.3); Magnesium 2.1 mg/dL (1.6-2.6); Potassium 3.8 mEq/L (3.5-5.1)
[2022-01-01 15:58] LABS: ABG Ionized Calcium 1.09 mmol/L (1.15-1.35)
[2022-01-01] MEDS ORDERED: Clinimix E 5%-15% SOLUTION 2,000 ML with MVI, adult with vitamin K 10 ML IVC SCH (17:00)
[2022-01-01] MEDS: Calcium Gluconate 1gm/50mL 1 GM/50 ML BAG IVPB PRN (17:09)
[2022-01-02] MEDS: Dexmedetomidine HCl 400 MCG/100 ML MLS IVC SCH ×3 (02:31→20:17)
[2022-01-02 03:43] LABS: VBG Ionized Calcium 0.81 mmol/L (1.15-1.35)
[2022-01-02 03:52] LABS: ABG Base Excess -5 mEq/L (-2 to 3); ABG HCO3 20 mEq/L (21-27); ABG Oxygen Saturation 92 % (95-98); ABG PCO2 37 mmHg (35-45); ABG PH 7.35 pH Units (7.32-7.45); ABG PO2 68 mmHg (85-104); ABG TCO2 22 mEq/L (20-26); Blood Gas Modality ASSIST CONTROL; Blood Gas VT 400 cc
[2022-01-02 03:52] LABS: Basophils % 0.2 %; Eosinophils % 0.4 %; Hematocrit 23.9 % (35.3-44.9); Mean Corpuscular HGB Conc 33.5 g/dL (31.6-35.5); Mean Corpuscular Hemoglobin 29.5 pg (28.0-33.3); Mean Corpuscular Volume 88.2 fL (83.0-100.0); Red Blood Count 2.71 M/mcL (3.82-4.97)
[2022-01-02 03:54] LABS: Eosinophils # 0.1 K/mcL (0.0-0.6); Immature Granulocytes % 3.4 % (0-4); Immature Platelets 12.9 % (1.1-6.1); Lymphocytes # 2.6 K/mcL (0.6-4.6); Lymphocytes % 13.9 %; Mean Platelet Volume 13.3 fL (9.4-12.4); Monocytes # 0.7 K/mcL (0.0-1.3); Monocytes % 3.4 %; Nucleated Red Blood Cells 0.6 /100 WBC (0); Red Cell Distribution Width 17.2 % (11.5-14.5); Segmented Neutrophils % 78.7 %
[2022-01-02 03:59] LABS: Platelet Count 72 K/mcL (140-400)
[2022-01-02 04:03] LABS: Calcium 5.9 mg/dL (8.6-10.3); Magnesium 1.6 mg/dL (1.6-2.6); Phosphorous 10.6 mg/dL (2.7-4.5); Potassium 3.2 mEq/L (3.5-5.1)
[2022-01-02] MEDS ORDERED: Calcium Chloride 2,000 MG in 0.9 % Sodium Chloride 100 ML IVPB ONE (04:43)
[2022-01-02] MEDS: Artificial Tears SOLN 15 ML BOTTLE BOTH EYES SCH ×6 (05:00→23:43)
[2022-01-02] MEDS: Insulin LISPRO 300 UNITS/3 ML VIAL SUBQ SCH ×5 (05:01→20:18)
[2022-01-02] MEDS: *HR* Heparin 5,000 UNIT/ML VIAL SQ SCH ×2 (05:01→18:18)
[2022-01-02] MEDS ORDERED: Furosemide 40 MG/4 ML VIAL IVP ONE (07:23)
[2022-01-02] MEDS: Chlorhexidine Rinse 15 ML MOUTHWASH MM SCH ×2 (07:38→20:20)
[2022-01-02] MEDS: Pantoprazole 40 MG VIAL IVP SCH (07:38)
[2022-01-02] MEDS: Hydrocortisone Sodium Succ 100 MG/2 ML VIAL IVP SCH ×2 (07:38→20:18)
[2022-01-02] MEDS: Insulin DETEMIR 100 UNIT/ML X5UNITS SUBQ SCH ×2 (07:39→20:26)
[2022-01-02] MEDS: Albumin Human 5% 12.5 GM/250 ML IV.SOLN IVC SCH ×2 (08:55→12:48)
[2022-01-02 11:08] LABS: VBG Ionized Calcium 1.27 mmol/L (1.15-1.35)
[2022-01-02 11:34] LABS: Magnesium 2.2 mg/dL (1.6-2.6); Phosphorous 3.4 mg/dL (2.7-4.5); Potassium 4.5 mEq/L (3.5-5.1)
[2022-01-02] MEDS ORDERED: Furosemide 40 MG/4 ML VIAL ONE (12:41)
[2022-01-02] MEDS: Vasopressin 40 UNIT in D5% in Water 100 ML IVC SCH (13:56)
[2022-01-02] MEDS ORDERED: Clinimix E 5%-15% SOLUTION 2,000 ML with MVI, adult with vitamin K 10 ML IVC SCH (17:00)
[2022-01-03] MEDS: Insulin LISPRO 300 UNITS/3 ML VIAL SUBQ SCH ×7 (00:12→23:16)
[2022-01-03] MEDS: Dexmedetomidine HCl 400 MCG/100 ML MLS IVC SCH (02:05)
[2022-01-03] MEDS: Artificial Tears SOLN 15 ML BOTTLE BOTH EYES SCH ×2 (03:14→07:52)
[2022-01-03 03:58] LABS: VBG Ionized Calcium 1.15 mmol/L (1.15-1.35)
[2022-01-03 03:59] LABS: Basophils % 0.2 %; Hemoglobin 7.6 g/dL (11.5-15.4); Mean Corpuscular Volume 88.6 fL (83.0-100.0); Nucleated Red Blood Cells 1.4 /100 WBC (0)
[2022-01-03 04:01] LABS: Eosinophils % 0.2 %; Hematocrit 22.5 % (35.3-44.9); Immature Granulocytes % 5.4 % (0-4); Immature Platelets 13.6 % (1.1-6.1); Lymphocytes # 2.3 K/mcL (0.6-4.6); Lymphocytes % 14.8 %; Mean Corpuscular HGB Conc 33.8 g/dL (31.6-35.5); Mean Corpuscular Hemoglobin 29.9 pg (28.0-33.3); Mean Platelet Volume 13.4 fL (9.4-12.4); Monocytes # 0.6 K/mcL (0.0-1.3); Monocytes % 3.8 %; Neutrophils # 11.6 K/mcL (1.6-8.9); Red Blood Count 2.54 M/mcL (3.82-4.97); Red Cell Distribution Width 16.8 % (11.5-14.5); Segmented Neutrophils % 75.6 %; White Blood Count 15.3 K/mcL (4.3-11.1)
[2022-01-03 04:15] LABS: Platelet Count 70 K/mcL (140-400)
[2022-01-03 04:26] LABS: Albumin 2.5 g/dL (3.5-5.7); Albumin/Globulin Ratio 1.6 (1.1-2.2); Anisocytosis 1+ (Not Present); Bilirubin,Total 0.4 mg/dL (0.3-1.0); Calcium 7.6 mg/dL (8.6-10.3); Globulin 1.6 g/dL (2.4-3.5); Macrocytosis Present (Not Present); Magnesium 2.1 mg/dL (1.6-2.6); Phosphorous 3.3 mg/dL (2.7-4.5); Platelet Estimate Decreased (Normal); Potassium 4.2 mEq/L (3.5-5.1); Total Protein 4.1 g/dL (6.4-8.9)
[2022-01-03 04:45] LABS: ABG Base Excess -5 mEq/L (-2 to 3); ABG HCO3 18 mEq/L (21-27); ABG Oxygen Saturation 91 % (95-98); ABG PCO2 25 mmHg (35-45); ABG PH 7.47 pH Units (7.32-7.45); ABG PO2 56 mmHg (85-104); ABG TCO2 18 mEq/L (20-26); Blood Gas Modality ASSIST CONTROL; Blood Gas VT 400 cc
[2022-01-03] MEDS: *HR* Heparin 5,000 UNIT/ML VIAL SQ SCH ×2 (05:11→17:47)
[2022-01-03] MEDS: Chlorhexidine Rinse 15 ML MOUTHWASH MM SCH ×2 (07:50→20:10)
[2022-01-03] MEDS: Hydrocortisone Sodium Succ 100 MG/2 ML VIAL IVP SCH (07:50)
[2022-01-03] MEDS: Pantoprazole 40 MG VIAL IVP SCH (07:50)
[2022-01-03] MEDS: Insulin DETEMIR 100 UNIT/ML X5UNITS SUBQ SCH ×2 (07:54→20:12)
[2022-01-03] MEDS: Norepinephrine 32 MG in 0.9 % Sodium Chloride 218 ML IVC SCH (07:54)
[2022-01-03] MEDS: Albumin Human 5% 12.5 GM/250 ML IV.SOLN IVC SCH ×2 (09:35→13:35)
[2022-01-03] MEDS: Furosemide 40 MG/4 ML VIAL IVP SCH ×2 (09:35→15:54)
[2022-01-03] MEDS ORDERED: Clinimix E 5%-20% SOLUTION 2,000 ML with MVI, adult with vitamin K 10 ML IVC SCH (17:00)
[2022-01-03] MEDS ORDERED: Clinimix 5%-20% SOLUTION 2,000 ML with MVI, adult with vitamin K 10 ML IVC SCH (17:00)
[2022-01-03 18:37] LABS: Potassium 3.4 mEq/L (3.5-5.1)
[2022-01-03] MEDS: Potassium Chloride 40 MEQ/200 ML BAG IVPB PRN (20:10)
[2022-01-03] MEDS: Hydrocortisone 10 MG TABLET PO SCH (20:11)
[2022-01-03 21:33] LABS: ABG Base Excess -7 mEq/L (-2 to 3); ABG HCO3 18 mEq/L (21-27); ABG Oxygen Saturation 96 % (95-98); ABG PCO2 30 mmHg (35-45); ABG PH 7.38 pH Units (7.32-7.45); ABG PO2 79 mmHg (85-104); ABG TCO2 19 mEq/L (20-26)
[2022-01-04 03:50] LABS: VBG Ionized Calcium 1.07 mmol/L (1.15-1.35)
[2022-01-04 03:56] LABS: Basophils # 0.1 K/mcL (0.0-0.2); Basophils % 0.4 %; Eosinophils # 0.1 K/mcL (0.0-0.6); Eosinophils % 0.2 %; Hematocrit 23.9 % (35.3-44.9); Hemoglobin 8.2 g/dL (11.5-15.4); Immature Granulocytes % 7.6 % (0-4); Immature Platelets 16.4 % (1.1-6.1); Lymphocytes # 2.5 K/mcL (0.6-4.6); Lymphocytes % 11.2 %; Mean Corpuscular HGB Conc 34.3 g/dL (31.6-35.5); Mean Corpuscular Hemoglobin 30.3 pg (28.0-33.3); Mean Corpuscular Volume 88.2 fL (83.0-100.0); Mean Platelet Volume 12.6 fL (9.4-12.4); Monocytes # 1.2 K/mcL (0.0-1.3); Monocytes % 5.4 %; Nucleated Red Blood Cells 1.6 /100 WBC (0); Platelet Count 103 K/mcL (140-400); Red Blood Count 2.71 M/mcL (3.82-4.97); Red Cell Distribution Width 16.9 % (11.5-14.5); Segmented Neutrophils % 75.2 %; White Blood Count 22.6 K/mcL (4.3-11.1)
[2022-01-04] MEDS: Insulin LISPRO 300 UNITS/3 ML VIAL SUBQ SCH ×6 (04:00→23:18)
[2022-01-04 04:13] LABS: Albumin/Globulin Ratio 1.8 (1.1-2.2); Bilirubin,Total 0.4 mg/dL (0.3-1.0); Calcium 7.6 mg/dL (8.6-10.3); Globulin 1.7 g/dL (2.4-3.5); Phosphorous 3.6 mg/dL (2.7-4.5); Potassium 3.7 mEq/L (3.5-5.1); Total Protein 4.7 g/dL (6.4-8.9)
[2022-01-04 04:22] LABS: Anisocytosis 1+ (Not Present); Platelet Estimate Slight Decrease (Normal)
[2022-01-04] MEDS: Calcium Gluconate 1gm/50mL 1 GM/50 ML BAG IVPB PRN (05:27)
[2022-01-04] MEDS: *HR* Heparin 5,000 UNIT/ML VIAL SQ SCH ×2 (05:27→16:41)
[2022-01-04] MEDS: Potassium Chloride 40 MEQ/200 ML BAG IVPB PRN ×2 (05:27→06:36)
[2022-01-04] MEDS ORDERED: 0.9 % Sodium Chloride 500 ML ONE (06:00)
[2022-01-04] MEDS: Chlorhexidine Rinse 15 ML MOUTHWASH MM SCH ×2 (07:37→20:20)
[2022-01-04] MEDS: Furosemide 40 MG/4 ML VIAL IVP SCH ×2 (07:37→16:41)
[2022-01-04] MEDS: Pantoprazole 40 MG VIAL IVP SCH (07:38)
[2022-01-04] MEDS: Insulin DETEMIR 100 UNIT/ML X5UNITS SUBQ SCH ×2 (08:22→20:20)
[2022-01-04] MEDS: Norepinephrine 32 MG in 0.9 % Sodium Chloride 218 ML IVC SCH ×2 (08:25→17:12)
[2022-01-04] MEDS ORDERED: Albumin Human 5% 12.5 GM/250 ML IV.SOLN IVPB ONE (12:03)
[2022-01-04] MEDS: Hydrocortisone 10 MG TABLET PO SCH ×2 (13:01→13:10)
[2022-01-04] MEDS: Albumin Human 5% 12.5 GM/250 ML IV.SOLN IVPB SCH (13:01)
[2022-01-04 14:26] LABS: VBG Ionized Calcium 1.13 mmol/L (1.15-1.35)
[2022-01-04 16:48] LABS: ABG Base Excess -2 mEq/L (-2 to 3); ABG HCO3 22 mEq/L (21-27); ABG Oxygen Saturation 97 % (95-98); ABG PCO2 34 mmHg (35-45); ABG PH 7.42 pH Units (7.32-7.45); ABG PO2 87 mmHg (85-104); ABG TCO2 24 mEq/L (20-26)
[2022-01-04] MEDS ORDERED: Clinimix E 5%-20% SOLUTION 2,000 ML with MVI, adult with vitamin K 10 ML IVC SCH (17:00)
[2022-01-04] MEDS ORDERED: Furosemide 40 MG/4 ML VIAL IVP ONE (17:00)
[2022-01-04] MEDS: Norepinephrine 4 MG/254 ML IV.SOLN IVC SCH (17:44)
[2022-01-04] MEDS: Hydrocortisone Sodium Succ 100 MG/2 ML VIAL IVP SCH (20:20)
[2022-01-04] MEDS ORDERED: Morphine Sulfate 2 MG/ML SYRINGE IVP ONE (20:33)
[2022-01-05] MEDS: Insulin LISPRO 300 UNITS/3 ML VIAL SUBQ SCH ×6 (03:40→23:20)
[2022-01-05] MEDS: Dexmedetomidine HCl 400 MCG/100 ML MLS IVC SCH ×2 (03:40→23:20)
[2022-01-05 04:04] LABS: VBG Ionized Calcium 1.04 mmol/L (1.15-1.35)
[2022-01-05 04:04] LABS: ABG Base Excess -1 mEq/L (-2 to 3); ABG HCO3 23 mEq/L (21-27); ABG Oxygen Saturation 95 % (95-98); ABG PCO2 33 mmHg (35-45); ABG PH 7.45 pH Units (7.32-7.45); ABG PO2 72 mmHg (85-104); ABG TCO2 24 mEq/L (20-26); Blood Gas Modality avaps; Blood Gas VT 450 cc
[2022-01-05 04:21] LABS: Basophils # 0.1 K/mcL (0.0-0.2); Basophils % 0.4 %; Eosinophils % 0.1 %; Hematocrit 23.9 % (35.3-44.9); Hemoglobin 8.1 g/dL (11.5-15.4); Immature Granulocytes % 8.9 % (0-4); Lymphocytes # 2.2 K/mcL (0.6-4.6); Lymphocytes % 8.6 %; Mean Corpuscular HGB Conc 33.9 g/dL (31.6-35.5); Mean Corpuscular Hemoglobin 30.3 pg (28.0-33.3); Mean Corpuscular Volume 89.5 fL (83.0-100.0); Mean Platelet Volume 12.8 fL (9.4-12.4); Monocytes # 1.3 K/mcL (0.0-1.3); Neutrophils # 19.7 K/mcL (1.6-8.9); Nucleated Red Blood Cells 1.4 /100 WBC (0); Platelet Count 118 K/mcL (140-400); Red Blood Count 2.67 M/mcL (3.82-4.97); Red Cell Distribution Width 17.6 % (11.5-14.5); White Blood Count 25.6 K/mcL (4.3-11.1)
[2022-01-05 04:22] LABS: Platelet Estimate Slight Decrease (Normal)
[2022-01-05 04:28] LABS: Albumin/Globulin Ratio 1.6 (1.1-2.2); Bilirubin,Total 0.5 mg/dL (0.3-1.0); Calcium 7.7 mg/dL (8.6-10.3); Globulin 1.9 g/dL (2.4-3.5); Phosphorous 3.8 mg/dL (2.7-4.5); Potassium 3.7 mEq/L (3.5-5.1); Total Protein 4.9 g/dL (6.4-8.9)
[2022-01-05] MEDS: *HR* Heparin 5,000 UNIT/ML VIAL SQ SCH ×2 (05:19→16:19)
[2022-01-05] MEDS: Calcium Gluconate 1gm/50mL 1 GM/50 ML BAG IVPB PRN (05:19)
[2022-01-05] MEDS: Potassium Chloride 40 MEQ/200 ML BAG IVPB PRN ×2 (05:42→15:30)
[2022-01-05] MEDS: Albumin Human 5% 12.5 GM/250 ML IV.SOLN IVPB SCH (08:27)
[2022-01-05] MEDS: Furosemide 40 MG/4 ML VIAL IVP SCH ×2 (08:28→16:19)
[2022-01-05] MEDS: Chlorhexidine Rinse 15 ML MOUTHWASH MM SCH ×3 (08:28→20:25)
[2022-01-05] MEDS: Pantoprazole 40 MG VIAL IVP SCH (08:28)
[2022-01-05] MEDS: Hydrocortisone Sodium Succ 100 MG/2 ML VIAL IVP SCH ×2 (08:28→20:25)
[2022-01-05] MEDS: Insulin DETEMIR 100 UNIT/ML X5UNITS SUBQ SCH ×2 (08:47→20:25)
[2022-01-05] MEDS ORDERED: Albumin Human 5% 12.5 GM/250 ML IV.SOLN IVPB SCH (09:00)
[2022-01-05] MEDS: FentaNYL (PF) 1,000 MCG/100 ML IV.SOLN IVC SCH ×2 (09:30→20:44)
[2022-01-05] MEDS ORDERED: Artificial Tears SOLN 15 ML BOTTLE BOTH EYES PRN (09:32)
[2022-01-05] MEDS: Artificial Tears SOLN 15 ML BOTTLE BOTH EYES SCH ×4 (10:34→23:20)
[2022-01-05 10:47] LABS: ABG Base Excess -1 mEq/L (-2 to 3); ABG HCO3 22 mEq/L (21-27); ABG Oxygen Saturation 96 % (95-98); ABG PCO2 31 mmHg (35-45); ABG PH 7.46 pH Units (7.32-7.45); ABG PO2 74 mmHg (85-104); ABG TCO2 23 mEq/L (20-26); Blood Gas Modality ASSIST CONTROL; Blood Gas VT 400 cc
[2022-01-05] MEDS: Norepinephrine 4 MG/254 ML IV.SOLN IVC SCH ×3 (12:15→23:22)
[2022-01-05 14:17] LABS: RBC,Pleural Fluid < 2000 RBC/mcL
[2022-01-05 14:20] LABS: Glucose,Pleural Fluid 150 mg/dL (No Ref Range); LDH,Pleural Fluid 53 Units/L (No Ref Range); Total Protein,Pleural Fluid < 2.0 g/dL
[2022-01-05 14:40] LABS: VBG Ionized Calcium 1.11 mmol/L (1.15-1.35)
[2022-01-05 14:54] LABS: Lactate Dehydrogenase 170 Units/L (140-271); Potassium 3.8 mEq/L (3.5-5.1); Total Protein 4.7 g/dL (6.4-8.9)
[2022-01-05 15:18] LABS: Appearance of Pleural Fl Clear (Clear)
[2022-01-05] MEDS ORDERED: Potassium Phosphate 44 MEQ in 0.9 % Sodium Chloride 250 ML IVPB PRN (15:38)
[2022-01-05] MEDS ORDERED: Calcium Gluconate 1gm/50mL 1 GM/50 ML BAG IVPB PRN (15:38)
[2022-01-05] MEDS ORDERED: Clinimix E 5%-20% SOLUTION 2,000 ML with MVI, adult with vitamin K 10 ML IVC SCH (17:00)
[2022-01-06 00:03] LABS: Calcium 7.5 mg/dL (8.6-10.3); Potassium 4.1 mEq/L (3.5-5.1)
[2022-01-06 00:05] LABS: Basophils # 0.1 K/mcL (0.0-0.2); Basophils % 0.3 %; Eosinophils # 0.1 K/mcL (0.0-0.6); Eosinophils % 0.3 %; Hematocrit 22.9 % (35.3-44.9); Hemoglobin 7.5 g/dL (11.5-15.4); Immature Granulocytes % 10.3 % (0-4); Lymphocytes # 2.4 K/mcL (0.6-4.6); Lymphocytes % 10.5 %; Mean Corpuscular HGB Conc 32.8 g/dL (31.6-35.5); Mean Corpuscular Hemoglobin 29.6 pg (28.0-33.3); Mean Corpuscular Volume 90.5 fL (83.0-100.0); Mean Platelet Volume 11.8 fL (9.4-12.4); Monocytes # 0.9 K/mcL (0.0-1.3); Monocytes % 3.7 %; Neutrophils # 17.2 K/mcL (1.6-8.9); Nucleated Red Blood Cells 1.7 /100 WBC (0); Platelet Count 149 K/mcL (140-400); Red Blood Count 2.53 M/mcL (3.82-4.97); Red Cell Distribution Width 17.7 % (11.5-14.5); Segmented Neutrophils % 74.9 %
[2022-01-06 00:25] LABS: ABG Base Excess -1 mEq/L (-2 to 3); ABG HCO3 23 mEq/L (21-27); ABG Oxygen Saturation 97 % (95-98); ABG PCO2 35 mmHg (35-45); ABG PH 7.44 pH Units (7.32-7.45); ABG PO2 91 mmHg (85-104); ABG TCO2 25 mEq/L (20-26); Blood Gas VT 400 cc
[2022-01-06 00:42] LABS: Magnesium 1.8 mg/dL (1.6-2.6)
[2022-01-06] MEDS: Phenylephrine 20 MG in 0.9 % Sodium Chloride 250 ML IVC SCH ×2 (01:05→04:19)
[2022-01-06] MEDS: Norepinephrine 8 MG/250 ML IV.SOLN IVC SCH (01:19)
[2022-01-06 01:20] LABS: Anisocytosis 1+ (Not Present)
[2022-01-06 01:21] LABS: Platelet Estimate Normal (Normal)
[2022-01-06] MEDS: Artificial Tears SOLN 15 ML BOTTLE BOTH EYES SCH ×5 (03:08→20:27)
[2022-01-06 03:23] LABS: ABG Base Excess -1 mEq/L (-2 to 3); ABG HCO3 24 mEq/L (21-27); ABG Oxygen Saturation 98 % (95-98); ABG PCO2 39 mmHg (35-45); ABG PO2 102 mmHg (85-104); ABG TCO2 25 mEq/L (20-26); Blood Gas Modality ASSIST CONTROL; Blood Gas VT 400 cc
[2022-01-06] MEDS: Insulin LISPRO 300 UNITS/3 ML VIAL SUBQ SCH ×6 (04:50→23:32)
[2022-01-06] MEDS: *HR* Heparin 5,000 UNIT/ML VIAL SQ SCH ×2 (04:51→18:05)
[2022-01-06 05:08] LABS: VBG Ionized Calcium 1.03 mmol/L (1.15-1.35)
[2022-01-06 05:10] LABS: Basophils # 0.1 K/mcL (0.0-0.2); Basophils % 0.3 %; Eosinophils % 0.2 %; Hematocrit 22.4 % (35.3-44.9); Hemoglobin 7.4 g/dL (11.5-15.4); Immature Granulocytes % 11.1 % (0-4); Lymphocytes % 11.4 %; Mean Corpuscular Hemoglobin 30.1 pg (28.0-33.3); Mean Corpuscular Volume 91.1 fL (83.0-100.0); Monocytes # 1.1 K/mcL (0.0-1.3); Neutrophils # 19.3 K/mcL (1.6-8.9); Nucleated Red Blood Cells 1.2 /100 WBC (0); Platelet Count 169 K/mcL (140-400); Red Blood Count 2.46 M/mcL (3.82-4.97); Red Cell Distribution Width 18.1 % (11.5-14.5); White Blood Count 26.4 K/mcL (4.3-11.1)
[2022-01-06 05:11] LABS: Eosinophils # 0.1 K/mcL (0.0-0.6)
[2022-01-06 05:28] LABS: Albumin 2.8 g/dL (3.5-5.7); Albumin/Globulin Ratio 1.6 (1.1-2.2); Bilirubin,Total 0.5 mg/dL (0.3-1.0); Calcium 7.3 mg/dL (8.6-10.3); Globulin 1.8 g/dL (2.4-3.5); Magnesium 1.9 mg/dL (1.6-2.6); Potassium 4.2 mEq/L (3.5-5.1); Total Protein 4.6 g/dL (6.4-8.9)
[2022-01-06] MEDS: Calcium Gluconate 1gm/50mL 1 GM/50 ML BAG IVPB PRN (05:37)
[2022-01-06 06:09] LABS: Anisocytosis 1+ (Not Present); Platelet Estimate Normal (Normal); Polychromasia 1+ (Not Present)
[2022-01-06] MEDS: Phenylephrine 100 MG in 0.9 % Sodium Chloride 250 ML IVC SCH ×2 (06:17→20:24)
[2022-01-06] MEDS ORDERED: Vancomycin 1,250 MG/262.5 ML IV.SOLN IVPB ONE (07:57)
[2022-01-06] MEDS: Furosemide 40 MG/4 ML VIAL IVP SCH ×2 (08:49→18:05)
[2022-01-06] MEDS: Hydrocortisone Sodium Succ 100 MG/2 ML VIAL IVP SCH ×2 (08:50→21:19)
[2022-01-06] MEDS: Pantoprazole 40 MG VIAL IVP SCH (08:50)
[2022-01-06] MEDS: Chlorhexidine Rinse 15 ML MOUTHWASH MM SCH ×3 (08:51→21:19)
[2022-01-06] MEDS: Albumin Human 5% 12.5 GM/250 ML IV.SOLN IVPB SCH (08:52)
[2022-01-06] MEDS: Micafungin 100 MG in 0.9 % Sodium Chloride Mini Bag 100 ML IVPB SCH (08:53)
[2022-01-06] MEDS: Insulin DETEMIR 100 UNIT/ML X5UNITS SUBQ SCH ×2 (09:21→21:43)
[2022-01-06] MEDS: FentaNYL (PF) 1,000 MCG/100 ML IV.SOLN IVC SCH ×2 (11:04→22:15)
[2022-01-06] MEDS: Albumin 25% 25gram/100mL 25 GM/100 ML IV.SOLN IVPB SCH ×2 (17:10→23:31)
[2022-01-06] MEDS: Clinimix 5%-20% SOLUTION 2,000 ML with MVI, adult with vitamin K 10 ML, ZN/CU/MN/SE 1... IVC SCH ×2 (17:14→18:05)
[2022-01-06] MEDS: Dexmedetomidine HCl 400 MCG/100 ML MLS IVC SCH (23:35)
[2022-01-07] MEDS: Artificial Tears SOLN 15 ML BOTTLE BOTH EYES SCH ×3 (00:22→07:43)
[2022-01-07] MEDS: Insulin LISPRO 300 UNITS/3 ML VIAL SUBQ SCH ×6 (04:00→23:23)
[2022-01-07 04:23] LABS: VBG Ionized Calcium 1.01 mmol/L (1.15-1.35)
[2022-01-07 04:36] LABS: Basophils % 0.1 %; Eosinophils % 0.2 %; Hematocrit 19.7 % (35.3-44.9); Hemoglobin 6.3 g/dL (11.5-15.4); Immature Granulocytes % 8.3 % (0-4); Lymphocytes # 1.6 K/mcL (0.6-4.6); Lymphocytes % 10.3 %; Mean Corpuscular Hemoglobin 29.4 pg (28.0-33.3); Mean Corpuscular Volume 92.1 fL (83.0-100.0); Mean Platelet Volume 12.1 fL (9.4-12.4); Monocytes # 0.5 K/mcL (0.0-1.3); Monocytes % 3.2 %; Nucleated Red Blood Cells 0.5 /100 WBC (0); Platelet Count 126 K/mcL (140-400); Red Blood Count 2.14 M/mcL (3.82-4.97); Segmented Neutrophils % 77.9 %; White Blood Count 15.4 K/mcL (4.3-11.1)
[2022-01-07] MEDS: Calcium Gluconate 1gm/50mL 1 GM/50 ML BAG IVPB PRN ×3 (04:41→22:06)
[2022-01-07 04:53] LABS: ABG Base Excess 0 mEq/L (-2 to 3); ABG HCO3 24 mEq/L (21-27); ABG Oxygen Saturation 99 % (95-98); ABG PCO2 36 mmHg (35-45); ABG PH 7.45 pH Units (7.32-7.45); ABG PO2 124 mmHg (85-104); ABG TCO2 26 mEq/L (20-26); Blood Gas Modality ASSIST CONTROL; Blood Gas VT 400 cc
[2022-01-07 04:58] LABS: Albumin 3.5 g/dL (3.5-5.7); Albumin/Globulin Ratio 2.3 (1.1-2.2); Bilirubin,Direct 0.1 mg/dL (0.0-0.2); Bilirubin,Indirect 0.4 mg/dL (0.0-1.0); Bilirubin,Total 0.5 mg/dL (0.3-1.0); Calcium 7.5 mg/dL (8.6-10.3); Globulin 1.5 g/dL (2.4-3.5); Magnesium 2.1 mg/dL (1.6-2.6); Phosphorous 4.7 mg/dL (2.7-4.5); Potassium 3.4 mEq/L (3.5-5.1)
[2022-01-07 05:15] LABS: Platelet Estimate Normal (Normal)
[2022-01-07 05:16] LABS: Anisocytosis 1+ (Not Present); Macrocytosis Present (Not Present)
[2022-01-07] MEDS: Potassium Chloride 40 MEQ/200 ML BAG IVPB PRN ×3 (05:24→21:14)
[2022-01-07] MEDS ORDERED: 0.9 % Sodium Chloride 250 ML IVC SCH (05:30)
[2022-01-07] MEDS: *HR* Heparin 5,000 UNIT/ML VIAL SQ SCH ×2 (05:42→18:25)
[2022-01-07] MEDS ORDERED: Vancomycin 1,250 MG/262.5 ML IV.SOLN IVPB ONE (06:00)
[2022-01-07] MEDS: Chlorhexidine Rinse 15 ML MOUTHWASH MM SCH (07:40)
[2022-01-07] MEDS: Micafungin 100 MG in 0.9 % Sodium Chloride Mini Bag 100 ML IVPB SCH (07:41)
[2022-01-07] MEDS: Furosemide 40 MG/4 ML VIAL IVP SCH ×2 (07:41→18:24)
[2022-01-07] MEDS: Hydrocortisone Sodium Succ 100 MG/2 ML VIAL IVP SCH ×2 (07:42→20:02)
[2022-01-07] MEDS: Pantoprazole 40 MG VIAL IVP SCH (07:42)
[2022-01-07] MEDS: Insulin DETEMIR 100 UNIT/ML X5UNITS SUBQ SCH ×2 (07:43→20:23)
[2022-01-07] MEDS: Norepinephrine 8 MG/250 ML IV.SOLN IVC SCH (11:43)
[2022-01-07] MEDS: Albumin 25% 25gram/100mL 25 GM/100 ML IV.SOLN IVPB SCH ×2 (11:53→22:57)
[2022-01-07] MEDS ORDERED: 0.9 % Sodium Chloride 250 ML ONE (12:23)
[2022-01-07 16:10] LABS: Hematocrit 22.6 % (35.3-44.9); Hemoglobin 7.7 g/dL (11.5-15.4)
[2022-01-07 16:22] LABS: Calcium 7.7 mg/dL (8.6-10.3); Magnesium 2.1 mg/dL (1.6-2.6); Phosphorous 4.1 mg/dL (2.7-4.5); Potassium 3.4 mEq/L (3.5-5.1)
[2022-01-07] MEDS ORDERED: Clinimix 5%-20% SOLUTION 2,000 ML with MVI, adult with vitamin K 10 ML, ZN/CU/MN/SE 1... IVC SCH (17:00)
[2022-01-07] MEDS ORDERED: Dexmedetomidine HCl 400 MCG/100 ML MLS IVC ONE (19:55)
[2022-01-07] MEDS: Dexmedetomidine HCl 400 MCG/100 ML MLS IVC SCH (20:24)
[2022-01-07 20:40] LABS: VBG Ionized Calcium 0.99 mmol/L (1.15-1.35)
[2022-01-07] MEDS: Phenylephrine 100 MG in 0.9 % Sodium Chloride 250 ML IVC SCH (21:04)
[2022-01-08 03:24] LABS: Fluid Source for Cholesterol PLEURAL FLUID
[2022-01-08 03:40] LABS: VBG Ionized Calcium 1.01 mmol/L (1.15-1.35)
[2022-01-08 03:46] LABS: Basophils % 0.2 %; Eosinophils % 0.3 %; Red Cell Distribution Width 17.5 % (11.5-14.5)
[2022-01-08 03:48] LABS: Hematocrit 21.5 % (35.3-44.9); Hemoglobin 7.2 g/dL (11.5-15.4); Immature Granulocytes % 6.7 % (0-4); Immature Platelets 7.7 % (1.1-6.1); Lymphocytes # 0.9 K/mcL (0.6-4.6); Lymphocytes % 8.3 %; Mean Corpuscular HGB Conc 33.5 g/dL (31.6-35.5); Mean Corpuscular Hemoglobin 29.4 pg (28.0-33.3); Mean Corpuscular Volume 87.8 fL (83.0-100.0); Mean Platelet Volume 11.7 fL (9.4-12.4); Monocytes # 0.3 K/mcL (0.0-1.3); Monocytes % 2.9 %; Neutrophils # 8.7 K/mcL (1.6-8.9); Nucleated Red Blood Cells 0.3 /100 WBC (0); Platelet Count 127 K/mcL (140-400); Red Blood Count 2.45 M/mcL (3.82-4.97); Segmented Neutrophils % 81.6 %; White Blood Count 10.6 K/mcL (4.3-11.1)
[2022-01-08] MEDS: Insulin LISPRO 300 UNITS/3 ML VIAL SUBQ SCH ×5 (03:56→20:43)
[2022-01-08 03:57] LABS: Platelet Estimate Slight Decrease (Normal)
[2022-01-08 04:05] LABS: Albumin 3.5 g/dL (3.5-5.7); Albumin/Globulin Ratio 2.7 (1.1-2.2); Bilirubin,Direct 0.3 mg/dL (0.0-0.2); Bilirubin,Indirect 0.5 mg/dL (0.0-1.0); Bilirubin,Total 0.8 mg/dL (0.3-1.0); Calcium 7.9 mg/dL (8.6-10.3); Globulin 1.3 g/dL (2.4-3.5); Phosphorous 3.8 mg/dL (2.7-4.5); Potassium 3.4 mEq/L (3.5-5.1); Total Protein 4.8 g/dL (6.4-8.9)
[2022-01-08] MEDS: Calcium Gluconate 1gm/50mL 1 GM/50 ML BAG IVPB PRN (04:21)
[2022-01-08] MEDS: Potassium Chloride 40 MEQ/200 ML BAG IVPB PRN (04:22)
[2022-01-08] MEDS: *HR* Heparin 5,000 UNIT/ML VIAL SQ SCH ×2 (05:00→18:00)
[2022-01-08 06:46] LABS: Cholesterol,Body Fluid 9 mg/dL
[2022-01-08] MEDS: Furosemide 40 MG/4 ML VIAL IVP SCH ×2 (08:37→18:00)
[2022-01-08] MEDS: Micafungin 100 MG in 0.9 % Sodium Chloride Mini Bag 100 ML IVPB SCH (08:38)
[2022-01-08] MEDS: Hydrocortisone Sodium Succ 100 MG/2 ML VIAL IVP SCH ×4 (08:38→23:17)
[2022-01-08] MEDS: Pantoprazole 40 MG VIAL IVP SCH (08:38)
[2022-01-08] MEDS: Insulin DETEMIR 100 UNIT/ML X5UNITS SUBQ SCH ×2 (08:40→20:41)
[2022-01-08 11:59] LABS: VBG Ionized Calcium 1.09 mmol/L (1.15-1.35)
[2022-01-08] MEDS ORDERED: Hydrocortisone Sodium Succ 100 MG/2 ML VIAL IVP ONE (12:37)
[2022-01-08] MEDS: Albumin 25% 25gram/100mL 25 GM/100 ML IV.SOLN IVPB SCH ×3 (13:11→23:17)
[2022-01-08] MEDS ORDERED: Clinimix E 5%-20% SOLUTION 2,000 ML with MVI, adult with vitamin K 10 ML, ZN/CU/MN/SE... IVC SCH (17:00)
[2022-01-09] MEDS: Insulin LISPRO 300 UNITS/3 ML VIAL SUBQ SCH ×6 (00:16→21:15)
[2022-01-09 03:58] LABS: VBG Ionized Calcium 1.04 mmol/L (1.15-1.35)
[2022-01-09] MEDS ORDERED: Calcium Gluconate 1gm/50mL 1 GM/50 ML BAG IVPB ONE (04:12)
[2022-01-09 04:25] LABS: Albumin/Globulin Ratio 3.1 (1.1-2.2); Bilirubin,Direct 0.2 mg/dL (0.0-0.2); Bilirubin,Indirect 0.4 mg/dL (0.0-1.0); Bilirubin,Total 0.6 mg/dL (0.3-1.0); Calcium 8.2 mg/dL (8.6-10.3); Globulin 1.3 g/dL (2.4-3.5); Magnesium 1.9 mg/dL (1.6-2.6); Phosphorous 3.8 mg/dL (2.7-4.5); Potassium 3.2 mEq/L (3.5-5.1); Total Protein 5.3 g/dL (6.4-8.9)
[2022-01-09] MEDS ORDERED: Magnesium Sulfate 1 GM/102 ML PIGGYBACK IVPB ONE (04:34)
[2022-01-09] MEDS: *HR* Heparin 5,000 UNIT/ML VIAL SQ SCH ×2 (05:30→17:41)
[2022-01-09] MEDS: Pantoprazole 40 MG VIAL IVP SCH (08:15)
[2022-01-09] MEDS: Furosemide 40 MG/4 ML VIAL IVP SCH ×2 (08:15→15:58)
[2022-01-09] MEDS: Hydrocortisone Sodium Succ 100 MG/2 ML VIAL IVP SCH ×2 (08:16→15:58)
[2022-01-09] MEDS: Insulin DETEMIR 100 UNIT/ML X5UNITS SUBQ SCH ×2 (08:22→21:15)
[2022-01-09 09:32] LABS: Pancreatic Elastase, Fecal 254 ug/g (>=100)
[2022-01-09] MEDS: Micafungin 100 MG in 0.9 % Sodium Chloride Mini Bag 100 ML IVPB SCH (10:17)
[2022-01-09 11:14] LABS: Hematocrit 22.7 % (35.3-44.9)
[2022-01-09 11:17] LABS: Basophils % 0.1 %; Hemoglobin 7.7 g/dL (11.5-15.4); Immature Granulocytes % 4.9 % (0-4); Lymphocytes # 1.2 K/mcL (0.6-4.6); Mean Corpuscular HGB Conc 33.9 g/dL (31.6-35.5); Mean Corpuscular Hemoglobin 29.7 pg (28.0-33.3); Mean Corpuscular Volume 87.6 fL (83.0-100.0); Mean Platelet Volume 11.7 fL (9.4-12.4); Monocytes # 0.5 K/mcL (0.0-1.3); Platelet Count 122 K/mcL (140-400); Red Blood Count 2.59 M/mcL (3.82-4.97); Red Cell Distribution Width 17.3 % (11.5-14.5); White Blood Count 15.2 K/mcL (4.3-11.1)
[2022-01-09 11:38] LABS: Neutrophils # 12.8 K/mcL (1.6-8.9)
[2022-01-09] MEDS ORDERED: Clinimix E 5%-20% SOLUTION 2,000 ML with MVI, adult with vitamin K 10 ML, ZN/CU/MN/SE... IVC SCH (17:00)
[2022-01-09] MEDS ORDERED: Acetaminophen 325 MG TABLET PO PRN (17:56)
[2022-01-09] MEDS ORDERED: Vancomycin 500 MG in 0.9 % Sodium Chloride Mini Bag 100 ML IVPB ONE (21:00)
[2022-01-10] MEDS: Insulin LISPRO 300 UNITS/3 ML VIAL SUBQ SCH ×6 (01:19→20:20)
[2022-01-10 04:01] LABS: Basophils % 0.2 %; Hematocrit 23.7 % (35.3-44.9); Hemoglobin 7.9 g/dL (11.5-15.4); Immature Granulocytes % 3.7 % (0-4); Lymphocytes # 1.1 K/mcL (0.6-4.6); Lymphocytes % 6.8 %; Mean Corpuscular HGB Conc 33.3 g/dL (31.6-35.5); Mean Corpuscular Hemoglobin 29.3 pg (28.0-33.3); Mean Corpuscular Volume 87.8 fL (83.0-100.0); Mean Platelet Volume 11.4 fL (9.4-12.4); Monocytes # 0.6 K/mcL (0.0-1.3); Monocytes % 3.9 %; Neutrophils # 13.8 K/mcL (1.6-8.9); Nucleated Red Blood Cells 0.1 /100 WBC (0); Platelet Count 144 K/mcL (140-400); Red Cell Distribution Width 17.6 % (11.5-14.5); Segmented Neutrophils % 85.4 %; White Blood Count 16.1 K/mcL (4.3-11.1)
[2022-01-10 04:16] LABS: Albumin 3.8 g/dL (3.5-5.7); Albumin/Globulin Ratio 2.7 (1.1-2.2); Bilirubin,Total 0.6 mg/dL (0.3-1.0); Globulin 1.4 g/dL (2.4-3.5); Potassium 2.6 mEq/L (3.5-5.1); Total Protein 5.2 g/dL (6.4-8.9)
[2022-01-10] MEDS: *HR* Heparin 5,000 UNIT/ML VIAL SQ SCH ×2 (04:41→17:04)
[2022-01-10 07:59] LABS: Magnesium 2.1 mg/dL (1.6-2.6); Phosphorous 4.6 mg/dL (2.7-4.5)
[2022-01-10] MEDS: Pantoprazole 40 MG VIAL IVP SCH (08:16)
[2022-01-10] MEDS: Furosemide 40 MG/4 ML VIAL IVP SCH (08:16)
[2022-01-10] MEDS: Insulin DETEMIR 100 UNIT/ML X5UNITS SUBQ SCH ×2 (08:20→20:20)
[2022-01-10] MEDS: Hydrocortisone Sodium Succ 100 MG/2 ML VIAL IVP SCH ×2 (09:38→16:42)
[2022-01-10] MEDS ORDERED: D10% in Water 500 ML IVC PRN (10:44)
[2022-01-10 14:28] LABS: Potassium 3.2 mEq/L (3.5-5.1)
[2022-01-10] MEDS ORDERED: Clinimix 5%-20% SOLUTION 2,000 ML with MVI, adult with vitamin K 10 ML, ZN/CU/MN/SE 1... IVC SCH (17:00)
[2022-01-10] MEDS ORDERED: Haloperidol Lactate 5 MG/ML VIAL IM ONE (18:10)
[2022-01-10 23:25] LABS: Potassium 3.4 mEq/L (3.5-5.1)
[2022-01-11] MEDS: Insulin LISPRO 300 UNITS/3 ML VIAL SUBQ SCH ×6 (00:06→20:23)
[2022-01-11] MEDS: Hydrocortisone Sodium Succ 100 MG/2 ML VIAL IVP SCH ×3 (00:07→16:47)
[2022-01-11] MEDS: *HR* Heparin 5,000 UNIT/ML VIAL SQ SCH ×2 (05:00→16:48)
[2022-01-11 05:44] LABS: Basophils % 0.2 %; Hematocrit 24.9 % (35.3-44.9); Hemoglobin 8.5 g/dL (11.5-15.4); Lymphocytes # 0.8 K/mcL (0.6-4.6); Mean Corpuscular HGB Conc 34.1 g/dL (31.6-35.5); Mean Corpuscular Hemoglobin 30.2 pg (28.0-33.3); Mean Corpuscular Volume 88.6 fL (83.0-100.0); Mean Platelet Volume 11.5 fL (9.4-12.4); Monocytes # 0.4 K/mcL (0.0-1.3); Neutrophils # 11.7 K/mcL (1.6-8.9); Nucleated Red Blood Cells 0.2 /100 WBC (0); Platelet Count 139 K/mcL (140-400); Red Blood Count 2.81 M/mcL (3.82-4.97); Red Cell Distribution Width 17.7 % (11.5-14.5); Segmented Neutrophils % 88.8 %; White Blood Count 13.1 K/mcL (4.3-11.1)
[2022-01-11 06:08] LABS: Albumin 3.6 g/dL (3.5-5.7); Albumin/Globulin Ratio 2.4 (1.1-2.2); Bilirubin,Total 0.6 mg/dL (0.3-1.0); Calcium 7.8 mg/dL (8.6-10.3); Globulin 1.5 g/dL (2.4-3.5); Potassium 3.6 mEq/L (3.5-5.1); Total Protein 5.1 g/dL (6.4-8.9)
[2022-01-11] MEDS: Pantoprazole 40 MG VIAL IVP SCH (08:15)
[2022-01-11] MEDS: Insulin DETEMIR 100 UNIT/ML X5UNITS SUBQ SCH ×2 (08:15→20:38)
[2022-01-11 08:51] LABS: Phosphorous 4.3 mg/dL (2.7-4.5)
[2022-01-11 08:59] LABS: VBG Ionized Calcium 0.98 mmol/L (1.15-1.35)
[2022-01-11] MEDS ORDERED: Clinimix 5%-20% SOLUTION 2,000 ML with MVI, adult with vitamin K 10 ML, ZN/CU/MN/SE 1... IVC SCH (17:00)
[2022-01-12] MEDS: Insulin LISPRO 300 UNITS/3 ML VIAL SUBQ SCH ×6 (01:16→21:22)
[2022-01-12] MEDS: Hydrocortisone Sodium Succ 100 MG/2 ML VIAL IVP SCH ×3 (01:17→16:13)
[2022-01-12 03:40] LABS: Basophils % 0.1 %; Eosinophils % 0.1 %; Hematocrit 26.3 % (35.3-44.9); Hemoglobin 8.7 g/dL (11.5-15.4); Immature Granulocytes % 1.3 % (0-4); Lymphocytes # 1.1 K/mcL (0.6-4.6); Lymphocytes % 9.2 %; Mean Corpuscular HGB Conc 33.1 g/dL (31.6-35.5); Mean Corpuscular Hemoglobin 30.1 pg (28.0-33.3); Mean Platelet Volume 11.2 fL (9.4-12.4); Monocytes # 0.4 K/mcL (0.0-1.3); Monocytes % 3.8 %; Platelet Count 146 K/mcL (140-400); Red Blood Count 2.89 M/mcL (3.82-4.97); Red Cell Distribution Width 18.1 % (11.5-14.5); Segmented Neutrophils % 85.5 %; White Blood Count 11.6 K/mcL (4.3-11.1)
[2022-01-12 03:48] LABS: Albumin 3.4 g/dL (3.5-5.7); Albumin/Globulin Ratio 2.1 (1.1-2.2); Bilirubin,Total 0.5 mg/dL (0.3-1.0); Calcium 7.7 mg/dL (8.6-10.3); Globulin 1.6 g/dL (2.4-3.5); Potassium 3.3 mEq/L (3.5-5.1)
[2022-01-12] MEDS: *HR* Dextrose 50 % in Water (Syg) 50 ML SYRINGE IVP PRN (05:13)
[2022-01-12] MEDS: *HR* Heparin 5,000 UNIT/ML VIAL SQ SCH ×2 (05:17→16:14)
[2022-01-12] MEDS ORDERED: Vancomycin 500 MG in 0.9 % Sodium Chloride Mini Bag 100 ML IVPB ONE (06:00)
[2022-01-12] MEDS: Pantoprazole 40 MG VIAL IVP SCH (07:43)
[2022-01-12] MEDS: Insulin DETEMIR 100 UNIT/ML X5UNITS SUBQ SCH ×2 (07:47→21:30)
[2022-01-12] MEDS ORDERED: Hydrocortisone Sodium Succ 100 MG/2 ML VIAL IVP SCH (08:01)
[2022-01-12] MEDS ORDERED: 0.9 % Sodium Chloride 500 ML IVC ONE (08:01)
[2022-01-12 10:47] LABS: Phosphorous 4.2 mg/dL (2.7-4.5)
[2022-01-12 14:24] LABS: Bacteria,Urine Few per hpf (None-Few); Bilirubin,Urine Negative (Negative); Blood,Urine Negative (Negative); Clarity,Urine Clear (Clear); Color,Urine Light-Yellow (Yellow); Glucose,Urine (UA) Normal (Normal); Ketones,Urine Negative (Negative); Leukocyte Esterase,Urine Small (Negative); Mucus,Urine Few per lpf (None-Few); Nitrite,Urine Negative (Negative); Protein,Urine Trace mg/dL (Neg-Trace); Specific Gravity,Urine 1.014 (1.010-1.025); Squamous Epithelial Cell,Urine Few per hpf (None-Few); Urobilinogen,Urine Normal (Normal)
[2022-01-12] MEDS ORDERED: Clinimix 5%-20% SOLUTION 2,000 ML with MVI, adult with vitamin K 10 ML, ZN/CU/MN/SE 1... IVC SCH (17:00)
[2022-01-13] MEDS: Insulin LISPRO 300 UNITS/3 ML VIAL SUBQ SCH ×7 (00:13→23:51)
[2022-01-13] MEDS: Hydrocortisone Sodium Succ 100 MG/2 ML VIAL IVP SCH ×4 (00:21→23:51)
[2022-01-13 02:27] LABS: Basophils % 0.1 %; Eosinophils % 0.2 %; Hematocrit 28.4 % (35.3-44.9); Hemoglobin 9.4 g/dL (11.5-15.4); Immature Granulocytes % 1.1 % (0-4); Lymphocytes # 1.1 K/mcL (0.6-4.6); Lymphocytes % 12.2 %; Mean Corpuscular HGB Conc 33.1 g/dL (31.6-35.5); Mean Corpuscular Hemoglobin 30.1 pg (28.0-33.3); Mean Platelet Volume 11.3 fL (9.4-12.4); Monocytes # 0.3 K/mcL (0.0-1.3); Monocytes % 3.3 %; Neutrophils # 7.7 K/mcL (1.6-8.9); Nucleated Red Blood Cells 0.2 /100 WBC (0); Platelet Count 143 K/mcL (140-400); Red Blood Count 3.12 M/mcL (3.82-4.97); Red Cell Distribution Width 18.1 % (11.5-14.5); Segmented Neutrophils % 83.1 %; White Blood Count 9.2 K/mcL (4.3-11.1)
[2022-01-13 02:54] LABS: VBG Ionized Calcium 1.06 mmol/L (1.15-1.35)
[2022-01-13 03:01] LABS: Phosphorous 3.6 mg/dL (2.7-4.5)
[2022-01-13 03:02] LABS: Albumin 3.3 g/dL (3.5-5.7); Albumin/Globulin Ratio 1.7 (1.1-2.2); Bilirubin,Total 0.5 mg/dL (0.3-1.0); Calcium 7.8 mg/dL (8.6-10.3); Globulin 1.9 g/dL (2.4-3.5); Potassium 3.7 mEq/L (3.5-5.1); Total Protein 5.2 g/dL (6.4-8.9)
[2022-01-13] MEDS ORDERED: Haloperidol Lactate 5 MG/ML VIAL IVP ONE (04:18)
[2022-01-13] MEDS: *HR* Heparin 5,000 UNIT/ML VIAL SQ SCH ×2 (04:28→20:38)
[2022-01-13] MEDS: Ondansetron 4 MG/2 ML VIAL IVP PRN (04:29)
[2022-01-13] MEDS: Calcium Gluconate 1gm/50mL 1 GM/50 ML BAG IVPB PRN ×2 (06:34→17:53)
[2022-01-13] MEDS ORDERED: Cyanocobalamin (B-12) 1,000 MCG/ML VIAL IM SCH (09:00)
[2022-01-13] MEDS: Pantoprazole 40 MG VIAL IVP SCH (10:03)
[2022-01-13] MEDS: Insulin DETEMIR 100 UNIT/ML X5UNITS SUBQ SCH ×2 (10:09→21:33)
[2022-01-13] MEDS ORDERED: Hydrocortisone Sodium Succ 100 MG/2 ML VIAL ONE (10:13)
[2022-01-13 14:07] LABS: VBG Ionized Calcium 1.08 mmol/L (1.15-1.35)
[2022-01-13 14:36] LABS: Magnesium 1.9 mg/dL (1.6-2.6); Phosphorous 3.7 mg/dL (2.7-4.5)
[2022-01-13] MEDS ORDERED: 0.9 % Sodium Chloride 500 ML IVC ONE (14:53)
[2022-01-13] MEDS ORDERED: Vancomycin 500 MG in 0.9 % Sodium Chloride Mini Bag 100 ML IVPB ONE (16:00)
[2022-01-13] MEDS: Haloperidol Oral Conc 10 MG/5 ML UDC PO SCH ×2 (16:54→21:33)
[2022-01-13] MEDS ORDERED: Clinimix E 5%-20% SOLUTION 2,000 ML with MVI, adult with vitamin K 10 ML, ZN/CU/MN/SE... IVC SCH (17:00)
[2022-01-13] MEDS ORDERED: Albumin 25% 25gram/100mL 25 GM/100 ML IV.SOLN IVPB ONE (22:46)
[2022-01-13] MEDS ORDERED: 0.9 % Sodium Chloride 1,000 ML IVC SCH (23:00)
[2022-01-14] MEDS: Haloperidol Oral Conc 10 MG/5 ML UDC PO SCH ×3 (03:00→17:18)
[2022-01-14] MEDS: *HR* Dextrose 50 % in Water (Syg) 50 ML SYRINGE IVP PRN (04:23)
[2022-01-14] MEDS: Insulin LISPRO 300 UNITS/3 ML VIAL SUBQ SCH ×4 (05:03→17:53)
[2022-01-14] MEDS: *HR* Heparin 5,000 UNIT/ML VIAL SQ SCH ×2 (05:31→17:34)
[2022-01-14 05:49] LABS: Hematocrit 26.5 % (35.3-44.9); Hemoglobin 8.5 g/dL (11.5-15.4); Mean Corpuscular HGB Conc 32.1 g/dL (31.6-35.5); Mean Corpuscular Hemoglobin 29.8 pg (28.0-33.3); Mean Platelet Volume 10.8 fL (9.4-12.4); Platelet Count 115 K/mcL (140-400); Red Blood Count 2.85 M/mcL (3.82-4.97); Red Cell Distribution Width 17.6 % (11.5-14.5); White Blood Count 8.1 K/mcL (4.3-11.1)
[2022-01-14 06:09] LABS: Calcium 8.1 mg/dL (8.6-10.3)
[2022-01-14 06:59] LABS: Magnesium 1.8 mg/dL (1.6-2.6); Phosphorous 3.8 mg/dL (2.7-4.5)
[2022-01-14] MEDS: Hydrocortisone Sodium Succ 100 MG/2 ML VIAL IVP SCH ×2 (09:09→17:30)
[2022-01-14] MEDS: Pantoprazole 40 MG VIAL IVP SCH (09:12)
[2022-01-14] MEDS: Insulin DETEMIR 100 UNIT/ML X5UNITS SUBQ SCH (10:14)
[2022-01-14] MEDS ORDERED: Vancomycin 500 MG in 0.9 % Sodium Chloride Mini Bag 100 ML IVPB ONE (14:00)
[2022-01-14] MEDS ORDERED: Lidocaine -MPF 2% 2 ML VIAL ONE (15:42)
[2022-01-14] MEDS ORDERED: Clinimix E 5%-20% SOLUTION 2,000 ML, Amino Acids 10% 200 ML with MVI, adult with vita... IVC SCH (17:00)
[2022-01-15] MEDS: Insulin LISPRO 300 UNITS/3 ML VIAL SUBQ SCH ×7 (00:09→21:05)
[2022-01-15] MEDS: Haloperidol Oral Conc 10 MG/5 ML UDC PO SCH ×4 (00:10→16:45)
[2022-01-15] MEDS: *HR* Heparin 5,000 UNIT/ML VIAL SQ SCH ×2 (05:03→16:45)
[2022-01-15] MEDS: Hydrocortisone Sodium Succ 100 MG/2 ML VIAL IVP SCH ×2 (05:04→16:46)
[2022-01-15 05:38] LABS: Hematocrit 26.7 % (35.3-44.9); Hemoglobin 8.7 g/dL (11.5-15.4); Mean Corpuscular HGB Conc 32.6 g/dL (31.6-35.5); Mean Corpuscular Hemoglobin 30.2 pg (28.0-33.3); Mean Corpuscular Volume 92.7 fL (83.0-100.0); Platelet Count 123 K/mcL (140-400); Red Blood Count 2.88 M/mcL (3.82-4.97); Red Cell Distribution Width 17.7 % (11.5-14.5); White Blood Count 7.6 K/mcL (4.3-11.1)
[2022-01-15 05:57] LABS: Bilirubin,Total 0.5 mg/dL (0.3-1.0); Calcium 7.8 mg/dL (8.6-10.3); Magnesium 1.8 mg/dL (1.6-2.6); Phosphorous 4.3 mg/dL (2.7-4.5); Potassium 3.6 mEq/L (3.5-5.1)
[2022-01-15 05:58] LABS: Albumin 3.4 g/dL (3.5-5.7); Globulin 1.7 g/dL (2.4-3.5); Total Protein 5.1 g/dL (6.4-8.9)
[2022-01-15] MEDS: Pantoprazole 40 MG VIAL IVP SCH (10:02)
[2022-01-15] MEDS: Haloperidol Oral Conc 10 MG/5 ML UDC GTUBE SCH ×2 (16:58→23:09)
[2022-01-15] MEDS ORDERED: Clinimix E 5%-20% SOLUTION 2,000 ML, Amino Acids 10% 200 ML with MVI, adult with vita... IVC SCH (17:00)
[2022-01-16] MEDS: Insulin LISPRO 300 UNITS/3 ML VIAL SUBQ SCH ×6 (00:36→22:03)
[2022-01-16 04:49] LABS: Hematocrit 27.5 % (35.3-44.9); Hemoglobin 8.9 g/dL (11.5-15.4); Mean Corpuscular HGB Conc 32.4 g/dL (31.6-35.5); Mean Corpuscular Hemoglobin 30.4 pg (28.0-33.3); Mean Corpuscular Volume 93.9 fL (83.0-100.0); Mean Platelet Volume 11.3 fL (9.4-12.4); Platelet Count 121 K/mcL (140-400); Red Blood Count 2.93 M/mcL (3.82-4.97); Red Cell Distribution Width 17.8 % (11.5-14.5); White Blood Count 9.3 K/mcL (4.3-11.1)
[2022-01-16 05:08] LABS: Albumin 3.2 g/dL (3.5-5.7); Albumin/Globulin Ratio 1.7 (1.1-2.2); Bilirubin,Total 0.4 mg/dL (0.3-1.0); Calcium 7.8 mg/dL (8.6-10.3); Globulin 1.9 g/dL (2.4-3.5); Magnesium 1.7 mg/dL (1.6-2.6); Potassium 3.5 mEq/L (3.5-5.1); Total Protein 5.1 g/dL (6.4-8.9)
[2022-01-16] MEDS: *HR* Heparin 5,000 UNIT/ML VIAL SQ SCH ×2 (05:58→18:15)
[2022-01-16] MEDS: Haloperidol Oral Conc 10 MG/5 ML UDC GTUBE SCH ×4 (05:58→23:48)
[2022-01-16] MEDS: Hydrocortisone Sodium Succ 100 MG/2 ML VIAL IVP SCH (05:59)
[2022-01-16] MEDS: Pantoprazole 40 MG VIAL IVP SCH (07:38)
[2022-01-16] MEDS ORDERED: E-Z-PAQUE (BARIUM SULF) SUSP 1 BOTTLE PO ONE (15:34)
[2022-01-16] MEDS ORDERED: E-Z-HD (BARIUM SULF) SUSPENSION PO ONE (15:34)
[2022-01-16] MEDS: Hydrocortisone 10 MG TABLET GTUBE SCH (18:13)
[2022-01-17] MEDS: Insulin LISPRO 300 UNITS/3 ML VIAL SUBQ SCH ×6 (00:25→17:20)
[2022-01-17 03:01] LABS: Hematocrit 24.7 % (35.3-44.9); Hemoglobin 7.7 g/dL (11.5-15.4); Mean Corpuscular HGB Conc 31.2 g/dL (31.6-35.5); Mean Corpuscular Hemoglobin 29.5 pg (28.0-33.3); Mean Corpuscular Volume 94.6 fL (83.0-100.0); Mean Platelet Volume 11.3 fL (9.4-12.4); Platelet Count 122 K/mcL (140-400); Red Blood Count 2.61 M/mcL (3.82-4.97); Red Cell Distribution Width 17.7 % (11.5-14.5); White Blood Count 6.2 K/mcL (4.3-11.1)
[2022-01-17 03:16] LABS: Calcium 7.8 mg/dL (8.6-10.3); Potassium 3.8 mEq/L (3.5-5.1)
[2022-01-17] MEDS: Haloperidol Oral Conc 10 MG/5 ML UDC GTUBE SCH ×3 (05:35→16:43)
[2022-01-17] MEDS: *HR* Heparin 5,000 UNIT/ML VIAL SQ SCH ×2 (05:35→16:43)
[2022-01-17] MEDS: Hydrocortisone 10 MG TABLET GTUBE SCH ×2 (05:35→16:44)
[2022-01-17] MEDS: Lactobacillus 1 EACH CAP.SPRINK GTUBE SCH ×2 (08:54→21:13)
[2022-01-17] MEDS ORDERED: Cholestyramine 4 GM POWD.PACK PO SCH (11:30)
[2022-01-18] MEDS: Insulin LISPRO 300 UNITS/3 ML VIAL SUBQ SCH ×4 (00:04→17:40)
[2022-01-18] MEDS: Haloperidol Oral Conc 10 MG/5 ML UDC GTUBE SCH ×4 (00:05→17:56)
[2022-01-18] MEDS: *HR* Heparin 5,000 UNIT/ML VIAL SQ SCH ×2 (05:14→17:54)
[2022-01-18] MEDS: Hydrocortisone 10 MG TABLET GTUBE SCH ×2 (05:14→17:54)
[2022-01-18] MEDS: Lactobacillus 1 EACH CAP.SPRINK GTUBE SCH ×2 (08:50→21:34)
[2022-01-18 14:42] LABS: Basophils % 0.2 %; Eosinophils # 0.1 K/mcL (0.0-0.6); Eosinophils % 1.8 %; Hematocrit 24.4 % (35.3-44.9); Hemoglobin 7.6 g/dL (11.5-15.4); Immature Granulocytes % 0.5 % (0-4); Lymphocytes # 0.8 K/mcL (0.6-4.6); Lymphocytes % 17.4 %; Mean Corpuscular HGB Conc 31.1 g/dL (31.6-35.5); Mean Corpuscular Hemoglobin 29.9 pg (28.0-33.3); Mean Corpuscular Volume 96.1 fL (83.0-100.0); Mean Platelet Volume 11.1 fL (9.4-12.4); Monocytes # 0.4 K/mcL (0.0-1.3); Neutrophils # 3.1 K/mcL (1.6-8.9); Platelet Count 128 K/mcL (140-400); Red Blood Count 2.54 M/mcL (3.82-4.97); Red Cell Distribution Width 17.5 % (11.5-14.5); Segmented Neutrophils % 72.1 %; White Blood Count 4.4 K/mcL (4.3-11.1)
[2022-01-18 15:04] LABS: Potassium 3.4 mEq/L (3.5-5.1)
[2022-01-19] MEDS: Haloperidol Oral Conc 10 MG/5 ML UDC GTUBE SCH ×3 (01:06→13:15)
[2022-01-19] MEDS: Insulin LISPRO 300 UNITS/3 ML VIAL SUBQ SCH ×3 (01:07→13:14)
[2022-01-19] MEDS: Hydrocortisone 10 MG TABLET GTUBE SCH (06:01)
[2022-01-19] MEDS: *HR* Heparin 5,000 UNIT/ML VIAL SQ SCH (06:01)
[2022-01-19 06:39] LABS: Basophils % 0.2 %; Eosinophils # 0.1 K/mcL (0.0-0.6); Eosinophils % 2.6 %; Hematocrit 26.5 % (35.3-44.9); Hemoglobin 8.2 g/dL (11.5-15.4); Immature Granulocytes % 0.6 % (0-4); Lymphocytes # 1.1 K/mcL (0.6-4.6); Lymphocytes % 20.9 %; Mean Corpuscular HGB Conc 30.9 g/dL (31.6-35.5); Mean Corpuscular Hemoglobin 29.7 pg (28.0-33.3); Monocytes # 0.4 K/mcL (0.0-1.3); Monocytes % 7.2 %; Neutrophils # 3.7 K/mcL (1.6-8.9); Platelet Count 142 K/mcL (140-400); Red Blood Count 2.76 M/mcL (3.82-4.97); Red Cell Distribution Width 17.7 % (11.5-14.5); Segmented Neutrophils % 68.5 %; White Blood Count 5.4 K/mcL (4.3-11.1)
[2022-01-19 06:53] LABS: Calcium 8.1 mg/dL (8.6-10.3); Magnesium 1.4 mg/dL (1.6-2.6); Potassium 3.4 mEq/L (3.5-5.1)
[2022-01-19] MEDS ORDERED: Potassium Chloride Elixir 20 MEQ/15 ML UDC GTUBE ONE (07:43)
[2022-01-19] MEDS: Lactobacillus 1 EACH CAP.SPRINK GTUBE SCH (08:10)
[2022-01-19 10:59] VITALS: BP 129/57; PULSE 105; TEMP 97; O2SAT 95
[2022-01-19] MEDS ORDERED: Moderna Covid-19 Vaccine 100MCG/0.5mL IM ONE (12:36)
== END 2022-01-19 15:48 | DRG 628 ==
LOC: ICNU 10:45 → EMEROOARM 10:45 → ICNU 12-27 00:15 → SUATTDRO 12-27 01:19 → 2NNU 12-29 12:46 → ICNU 12-30 01:25 → 2NNU 01-08 12:10 → 2NENU 01-13 19:42
PROVIDERS: ADMIT Internal Medicine; ATTEND Internal Medicine

== ENCOUNTER 2022-02-17 14:27 | Inpatient (IN) ==
[2022-02-17 15:15] LABS: Bacteria,Urine Moderate per hpf (None-Few); Bilirubin,Urine Negative (Negative); Blood,Urine Small (Negative); Clarity,Urine Turbid (Clear); Color,Urine Yellow (Yellow); Glucose,Urine (UA) Normal (Normal); Ketones,Urine Negative (Negative); Leukocyte Esterase,Urine Large (Negative); Nitrite,Urine Negative (Negative); Protein,Urine 100 mg/dL (Neg-Trace); RBC,Urine 15-30 per hpf (0-3); Specific Gravity,Urine 1.017 (1.010-1.025); Urobilinogen,Urine Normal (Normal); WBC,Urine TNTC per hpf (0-3)
[2022-02-17 15:39] LABS: Influenza A PCR Negative (Negative); Influenza B PCR Negative (Negative); Resp. Syncytial Virus PCR Negative (Negative)
[2022-02-17 16:00] LABS: Albumin 3.6 g/dL (3.5-5.7); Albumin/Globulin Ratio 0.9 (1.1-2.2); Bilirubin,Total 0.3 mg/dL (0.3-1.0); Calcium 9.9 mg/dL (8.6-10.3); Globulin 3.8 g/dL (2.4-3.5); Potassium 4.9 mEq/L (3.5-5.1); Total Protein 7.4 g/dL (6.4-8.9); Troponin I 0.03 ng/mL (< 0.04)
[2022-02-17] MEDS ORDERED: 0.9 % Sodium Chloride 1,000 ML IV ONE (16:08)
[2022-02-17] MEDS ORDERED: cefTRIAXone 1,000 MG in 0.9 % Sodium Chloride 10 ML IVP ONE (16:08)
[2022-02-17 16:33] LABS: Basophils # 0.1 K/mcL (0.0-0.2); Basophils % 0.3 %; Eosinophils % 0.1 %; Hematocrit 28.7 % (35.3-44.9); Hemoglobin 9.5 g/dL (11.5-15.4); Immature Granulocytes % 1.4 % (0-4); Lymphocytes # 2.3 K/mcL (0.6-4.6); Lymphocytes % 8.7 %; Mean Corpuscular HGB Conc 33.1 g/dL (31.6-35.5); Mean Corpuscular Hemoglobin 28.7 pg (28.0-33.3); Mean Corpuscular Volume 86.7 fL (83.0-100.0); Mean Platelet Volume 11.1 fL (9.4-12.4); Monocytes # 1.3 K/mcL (0.0-1.3); Neutrophils # 21.9 K/mcL (1.6-8.9); Platelet Count 387 K/mcL (140-400); Red Blood Count 3.31 M/mcL (3.82-4.97); Red Cell Distribution Width 14.7 % (11.5-14.5); Segmented Neutrophils % 84.5 %; White Blood Count 25.9 K/mcL (4.3-11.1)
[2022-02-17 16:45] LABS: Platelet Estimate Normal (Normal)
[2022-02-17 17:53] LABS: SARS-CoV-2 by PCR (In House) Negative (Negative)
[2022-02-17] MEDS ORDERED: Naloxone 0.4 MG/ML INJ IVP PRN (20:07)
[2022-02-17] MEDS ORDERED: Acetaminophen 325 MG TABLET PO PRN (20:07)
[2022-02-17] MEDS ORDERED: Hydrocortisone Sodium Succ 100 MG/2 ML VIAL IVP ONE (21:30)
[2022-02-17] MEDS: 0.9 % Sodium Chloride 1,000 ML IVC SCH ×2 (21:44→23:56)
[2022-02-17] MEDS: Cefepime HCl 1,000 MG in 0.9 % Sodium Chloride 10 ML IVPB SCH (22:30)
[2022-02-17 23:25] LABS: Calcium 9.4 mg/dL (8.6-10.3)
[2022-02-18 02:24] LABS: BUN/Creatinine Ratio 23 (6-26); Blood Urea Nitrogen 128 mg/dL (8-23); Calcium 8.9 mg/dL (8.6-10.3); Carbon Dioxide 21 mEq/L (23-29); Chloride 95 mEq/L (98-107); Glucose 97 mg/dL (70-105); Osmolality,Calculated 317 (280-300); Potassium 4.4 mEq/L (3.5-5.1); Sodium 133 mEq/L (136-145); eGFR For African Americans 9 (> 60); eGFR For Non-African Americans 7 (> 60)
[2022-02-18] MEDS: Hydrocortisone Sodium Succ 100 MG/2 ML VIAL IVP SCH ×5 (05:57→23:02)
[2022-02-18] MEDS: *HR* Heparin 5,000 UNIT/ML VIAL SQ SCH ×2 (06:00→17:40)
[2022-02-18] MEDS: 0.9 % Sodium Chloride 1,000 ML IVC SCH ×2 (12:08→22:20)
[2022-02-18 16:53] LABS: Creatine Kinase < 10 Units/L (30-223); Uric Acid 11.8 mg/dL (2.3-7.6)
[2022-02-18] MEDS: Vancomycin Oral Soln 125 MG/2.5 ML UDC PO SCH ×2 (17:39→21:07)
[2022-02-18] MEDS: Melatonin 3 MG TABLET PO PRN (21:07)
[2022-02-18] MEDS: Lactobacillus 1 EACH CAP.SPRINK GTUBE SCH (21:07)
[2022-02-18] MEDS: Cefepime HCl 1,000 MG in 0.9 % Sodium Chloride 10 ML IVPB SCH (22:26)
[2022-02-19 02:54] LABS: Basophils % 0.3 %; Eosinophils % 0.2 %; Hematocrit 20.4 % (35.3-44.9); Immature Granulocytes % 0.8 % (0-4); Lymphocytes % 10.5 %; Mean Corpuscular HGB Conc 31.9 g/dL (31.6-35.5); Mean Corpuscular Hemoglobin 28.8 pg (28.0-33.3); Mean Corpuscular Volume 90.3 fL (83.0-100.0); Monocytes # 0.3 K/mcL (0.0-1.3); Monocytes % 2.9 %; Platelet Count 199 K/mcL (140-400); Red Blood Count 2.26 M/mcL (3.82-4.97); Red Cell Distribution Width 14.8 % (11.5-14.5); Segmented Neutrophils % 85.3 %
[2022-02-19 02:55] LABS: Hemoglobin 6.5 g/dL (11.5-15.4); Neutrophils # 8.4 K/mcL (1.6-8.9); White Blood Count 9.8 K/mcL (4.3-11.1)
[2022-02-19 03:15] LABS: Calcium 8.2 mg/dL (8.6-10.3); Potassium 3.7 mEq/L (3.5-5.1)
[2022-02-19] MEDS: *HR* Heparin 5,000 UNIT/ML VIAL SQ SCH ×2 (05:05→18:13)
[2022-02-19] MEDS: Hydrocortisone Sodium Succ 100 MG/2 ML VIAL IVP SCH ×4 (05:12→23:42)
[2022-02-19] MEDS: Vancomycin Oral Soln 125 MG/2.5 ML UDC PO SCH ×4 (08:50→20:03)
[2022-02-19] MEDS: Lactobacillus 1 EACH CAP.SPRINK GTUBE SCH ×2 (08:50→20:02)
[2022-02-19] MEDS: 0.9 % Sodium Chloride 1,000 ML IVC SCH (08:51)
[2022-02-19 09:31] LABS: Hematocrit 22.9 % (35.3-44.9); Hemoglobin 7.4 g/dL (11.5-15.4); Mean Corpuscular HGB Conc 32.3 g/dL (31.6-35.5); Mean Corpuscular Volume 89.8 fL (83.0-100.0); Mean Platelet Volume 11.2 fL (9.4-12.4); Platelet Count 207 K/mcL (140-400); Red Blood Count 2.55 M/mcL (3.82-4.97); Red Cell Distribution Width 14.6 % (11.5-14.5)
[2022-02-19 09:37] LABS: Hematocrit 22.8 % (35.3-44.9); Hemoglobin 7.4 g/dL (11.5-15.4)
[2022-02-19 09:56] LABS: % Iron Saturation 24 % (15-50); Iron 91 mcg/dL (50-170); Transferrin 273 mg/dL (203-362)
[2022-02-19 10:10] LABS: Ferritin 939 ng/mL (10-120)
[2022-02-19] MEDS: Pantoprazole 40 MG VIAL IVP SCH ×2 (12:28→18:13)
[2022-02-19] MEDS: Nystatin POWDER 30 GM BOTTLE TP SCH ×3 (15:28→20:03)
[2022-02-19 16:03] LABS: Protein/Creatinine Ratio,Urine 1.26 mg/mg (0.00-0.20); Sodium, Urine 43.3 mEq/L
[2022-02-19] MEDS: Cholestyramine 4 GM POWD.PACK PO SCH (19:08)
[2022-02-19] MEDS: Cefepime HCl 1,000 MG in 0.9 % Sodium Chloride 10 ML IVPB SCH (21:47)
[2022-02-20] MEDS: Hydrocortisone Sodium Succ 100 MG/2 ML VIAL IVP SCH ×2 (05:20→18:57)
[2022-02-20] MEDS: *HR* Heparin 5,000 UNIT/ML VIAL SQ SCH ×2 (05:20→17:57)
[2022-02-20] MEDS: Pantoprazole 40 MG VIAL IVP SCH ×2 (05:20→17:56)
[2022-02-20 05:46] LABS: Basophils % 0.3 %; Eosinophils % 0.1 %; Hematocrit 26.8 % (35.3-44.9); Hemoglobin 8.3 g/dL (11.5-15.4); Immature Granulocytes % 0.9 % (0-4); Lymphocytes # 1.1 K/mcL (0.6-4.6); Lymphocytes % 14.1 %; Mean Corpuscular Hemoglobin 29.1 pg (28.0-33.3); Monocytes # 0.3 K/mcL (0.0-1.3); Monocytes % 4.2 %; Neutrophils # 6.3 K/mcL (1.6-8.9); Platelet Count 190 K/mcL (140-400); Red Blood Count 2.85 M/mcL (3.82-4.97); Red Cell Distribution Width 14.6 % (11.5-14.5); Segmented Neutrophils % 80.4 %; White Blood Count 7.9 K/mcL (4.3-11.1)
[2022-02-20 06:13] LABS: Calcium 8.2 mg/dL (8.6-10.3); Magnesium 1.9 mg/dL (1.6-2.6); Potassium 3.5 mEq/L (3.5-5.1)
[2022-02-20] MEDS ORDERED: 0.9 % Sodium Chloride 1,000 ML IVC SCH (10:00)
[2022-02-20] MEDS: Cholestyramine 4 GM POWD.PACK PO SCH ×3 (10:34→16:29)
[2022-02-20] MEDS: Psyllium 1 PACKET POWD.PACK GTUBE SCH ×4 (10:34→20:06)
[2022-02-20] MEDS: Lactobacillus 1 EACH CAP.SPRINK GTUBE SCH ×3 (10:34→20:07)
[2022-02-20] MEDS: Vancomycin Oral Soln 125 MG/2.5 ML UDC PO SCH ×5 (10:34→20:07)
[2022-02-20] MEDS: Nystatin POWDER 30 GM BOTTLE TP SCH ×4 (10:34→22:00)
[2022-02-20] MEDS: Sodium Bicarbonate 50 MEQ in 0.45 % Sodium Chloride 1,000 ML IVC SCH ×2 (12:48→23:24)
[2022-02-20] MEDS: Hydrocortisone 10 MG TABLET PO SCH (20:07)
[2022-02-20] MEDS: Magnesium Oxide 400 MG TABLET PO SCH (20:07)
[2022-02-21] MEDS: *HR* Heparin 5,000 UNIT/ML VIAL SQ SCH ×2 (05:13→16:44)
[2022-02-21] MEDS: Pantoprazole 40 MG VIAL IVP SCH ×2 (05:14→16:44)
[2022-02-21 06:59] LABS: Basophils % 0.2 %; Eosinophils % 0.5 %; Hematocrit 24.6 % (35.3-44.9); Hemoglobin 7.9 g/dL (11.5-15.4); Immature Granulocytes % 0.6 % (0-4); Lymphocytes # 1.7 K/mcL (0.6-4.6); Lymphocytes % 20.4 %; Mean Corpuscular HGB Conc 32.1 g/dL (31.6-35.5); Mean Corpuscular Volume 90.4 fL (83.0-100.0); Mean Platelet Volume 10.9 fL (9.4-12.4); Monocytes # 0.4 K/mcL (0.0-1.3); Monocytes % 4.8 %; Platelet Count 185 K/mcL (140-400); Red Blood Count 2.72 M/mcL (3.82-4.97); Red Cell Distribution Width 14.7 % (11.5-14.5); Segmented Neutrophils % 73.5 %; White Blood Count 8.1 K/mcL (4.3-11.1)
[2022-02-21 07:22] LABS: Calcium 6.7 mg/dL (8.6-10.3); Magnesium 1.7 mg/dL (1.6-2.6)
[2022-02-21] MEDS: Hydrocortisone 10 MG TABLET PO SCH ×2 (08:22→20:28)
[2022-02-21] MEDS: Magnesium Oxide 400 MG TABLET PO SCH ×2 (08:22→20:53)
[2022-02-21] MEDS: FLUoxetine HCl 10 MG CAPSULE PO SCH (08:22)
[2022-02-21] MEDS: Lactobacillus 1 EACH CAP.SPRINK GTUBE SCH ×2 (08:22→20:28)
[2022-02-21] MEDS: Vancomycin Oral Soln 125 MG/2.5 ML UDC PO SCH ×4 (08:23→20:27)
[2022-02-21] MEDS: Cholestyramine 4 GM POWD.PACK PO SCH ×2 (08:23→15:59)
[2022-02-21] MEDS: Nystatin POWDER 30 GM BOTTLE TP SCH ×3 (08:24→20:29)
[2022-02-21] MEDS: Psyllium 1 PACKET POWD.PACK GTUBE SCH ×3 (08:24→20:28)
[2022-02-21] MEDS: Sodium Bicarbonate 50 MEQ in 0.45 % Sodium Chloride 1,000 ML IVC SCH ×2 (11:04→22:27)
[2022-02-21 13:45] LABS: Complement C3 114 mg/dL (87-200)
[2022-02-21] MEDS ORDERED: Calcium Gluconate 1gm/50mL 1 GM/50 ML BAG IVPB ONE (13:51)
[2022-02-21 14:55] LABS: Adenovirus F 40/41 PCR Not detected (Not detect); Astrovirus PCR Not detected (Not detect); C.difficile Toxin A/B Gene PCR Not detected (Not detect); Campylobacter by PCR Not detected (Not detect); Cryptosporidium by PCR Not detected (Not detect); Cyclospora cayetanensis PCR Not detected (Not detect); Entamoeba histolytica PCR Not detected (Not detect); Enteroaggregative E.coli(EAEC) Not detected (Not detect); Enteropathogenic E.coli(EPEC) Not detected (Not detect); Enterotoxigenic E.coli (ETEC) Not detected (Not detect); Giardia lamblia PCR Not detected (Not detect); Norovirus GI/GII PCR Not detected (Not detect); Plesiomonas shigelloides PCR Not detected (Not detect); Rotavirus A PCR Not detected (Not detect); Salmonella PCR Not detected (Not detect); Sapovirus PCR Not detected (Not detect); Shig/EnteroinvasiveE coli EIEC Not detected (Not detect); Shigalike tox-prod E coli STEC Not detected (Not detect); Vibrio PCR Not detected (Not detect); Vibrio cholerae PCR Not detected (Not detect); Yersinia enterocolitica PCR Not detected (Not detect)
[2022-02-21] MEDS: Potassium Chloride Elixir 20 MEQ/15 ML UDC GTUBE SCH (20:27)
[2022-02-21] MEDS: Ondansetron 4 MG/2 ML VIAL IVP PRN (23:36)
[2022-02-22 05:41] LABS: Basophils % 0.2 %; Eosinophils # 0.1 K/mcL (0.0-0.6); Eosinophils % 0.5 %; Hematocrit 24.2 % (35.3-44.9); Hemoglobin 7.9 g/dL (11.5-15.4); Immature Granulocytes % 0.4 % (0-4); Lymphocytes # 1.2 K/mcL (0.6-4.6); Lymphocytes % 12.8 %; Mean Corpuscular HGB Conc 32.6 g/dL (31.6-35.5); Mean Corpuscular Hemoglobin 29.4 pg (28.0-33.3); Mean Platelet Volume 10.7 fL (9.4-12.4); Monocytes # 0.4 K/mcL (0.0-1.3); Monocytes % 3.9 %; Neutrophils # 7.7 K/mcL (1.6-8.9); Platelet Count 192 K/mcL (140-400); Red Blood Count 2.69 M/mcL (3.82-4.97); Red Cell Distribution Width 15.1 % (11.5-14.5); Segmented Neutrophils % 82.2 %; White Blood Count 9.3 K/mcL (4.3-11.1)
[2022-02-22 05:43] LABS: VBG Ionized Calcium 0.98 mmol/L (1.15-1.35)
[2022-02-22 06:04] LABS: Calcium 7.8 mg/dL (8.6-10.3); Magnesium 1.6 mg/dL (1.6-2.6)
[2022-02-22 06:26] LABS: Hepatitis B Surface Antigen Nonreactive (Nonreactive)
[2022-02-22] MEDS: Pantoprazole 40 MG VIAL IVP SCH ×2 (06:38→18:38)
[2022-02-22] MEDS: *HR* Heparin 5,000 UNIT/ML VIAL SQ SCH ×2 (06:38→18:38)
[2022-02-22 06:56] LABS: Hepatitis A Antibody IgM Nonreactive (Nonreactive); Hepatitis B Core IgM Nonreactive (Nonreactive)
[2022-02-22 06:57] LABS: Hepatitis C Virus Antibody Nonreactive (Nonreactive)
[2022-02-22 07:13] LABS: Protein/Creatinine Ratio,Urine 1.76 mg/mg (0.00-0.20)
[2022-02-22] MEDS: Cholestyramine 4 GM POWD.PACK PO SCH ×2 (07:57→15:52)
[2022-02-22] MEDS: Psyllium 1 PACKET POWD.PACK GTUBE SCH ×3 (07:57→21:00)
[2022-02-22] MEDS: Vancomycin Oral Soln 125 MG/2.5 ML UDC PO SCH ×4 (07:57→20:58)
[2022-02-22] MEDS: Lactobacillus 1 EACH CAP.SPRINK GTUBE SCH ×2 (07:58→20:59)
[2022-02-22] MEDS: FLUoxetine HCl 10 MG CAPSULE PO SCH (07:58)
[2022-02-22] MEDS: Potassium Chloride Elixir 20 MEQ/15 ML UDC GTUBE SCH ×2 (07:58→20:58)
[2022-02-22] MEDS: Hydrocortisone 10 MG TABLET PO SCH ×2 (07:59→20:59)
[2022-02-22] MEDS: Nystatin POWDER 30 GM BOTTLE TP SCH ×3 (08:00→21:00)
[2022-02-22] MEDS: Magnesium Oxide 400 MG TABLET PO SCH ×2 (08:00→20:59)
[2022-02-22] MEDS: Sodium Bicarbonate 50 MEQ in 0.45 % Sodium Chloride 1,000 ML IVC SCH ×2 (08:17→18:38)
[2022-02-22] MEDS: Albumin 25% 25gram/100mL 25 GM/100 ML IV.SOLN IVPB SCH ×3 (08:18→23:47)
[2022-02-22] MEDS ORDERED: Cyanocobalamin (B-12) 1,000 MCG/ML VIAL IM SCH (21:15)
[2022-02-23] MEDS: Pantoprazole 40 MG VIAL IVP SCH ×2 (05:57→16:17)
[2022-02-23] MEDS: *HR* Heparin 5,000 UNIT/ML VIAL SQ SCH ×2 (05:57→16:17)
[2022-02-23] MEDS: Sodium Bicarbonate 50 MEQ in 0.45 % Sodium Chloride 1,000 ML IVC SCH ×3 (05:57→21:12)
[2022-02-23 06:22] LABS: Basophils % 0.3 %; Eosinophils # 0.1 K/mcL (0.0-0.6); Eosinophils % 1.2 %; Hematocrit 21.4 % (35.3-44.9); Hemoglobin 6.9 g/dL (11.5-15.4); Immature Granulocytes % 0.5 % (0-4); Lymphocytes # 1.8 K/mcL (0.6-4.6); Lymphocytes % 23.8 %; Mean Corpuscular HGB Conc 32.2 g/dL (31.6-35.5); Mean Corpuscular Hemoglobin 29.4 pg (28.0-33.3); Mean Corpuscular Volume 91.1 fL (83.0-100.0); Mean Platelet Volume 10.9 fL (9.4-12.4); Monocytes # 0.4 K/mcL (0.0-1.3); Monocytes % 5.2 %; Neutrophils # 5.3 K/mcL (1.6-8.9); Platelet Count 157 K/mcL (140-400); Red Blood Count 2.35 M/mcL (3.82-4.97); Red Cell Distribution Width 15.4 % (11.5-14.5); White Blood Count 7.7 K/mcL (4.3-11.1)
[2022-02-23 06:45] LABS: Calcium 7.9 mg/dL (8.6-10.3); Magnesium 1.7 mg/dL (1.6-2.6); Phosphorous 3.6 mg/dL (2.7-4.5); Potassium 4.9 mEq/L (3.5-5.1)
[2022-02-23 07:13] LABS: Folate 10.6 ng/mL (3.0-16.0); Vitamin B12 > 1500 pg/mL (250-1100)
[2022-02-23] MEDS: Multivit/Ca/Min/Fe/FA 1 TAB TABLET PO SCH (07:41)
[2022-02-23] MEDS: Hydrocortisone 10 MG TABLET PO SCH ×4 (07:41→21:13)
[2022-02-23] MEDS: Magnesium Oxide 400 MG TABLET PO SCH ×2 (07:41→21:14)
[2022-02-23] MEDS: Lactobacillus 1 EACH CAP.SPRINK PO SCH ×2 (07:42→21:13)
[2022-02-23] MEDS: FLUoxetine HCl 10 MG CAPSULE PO SCH (07:43)
[2022-02-23] MEDS: Vancomycin Oral Soln 125 MG/2.5 ML UDC PO SCH ×4 (07:43→21:13)
[2022-02-23] MEDS: Psyllium 1 PACKET POWD.PACK GTUBE SCH ×3 (07:43→21:11)
[2022-02-23] MEDS: Cholestyramine 4 GM POWD.PACK PO SCH ×3 (07:43→16:19)
[2022-02-23] MEDS: Cholecalciferol (D-3) 1,000 UNIT (25MCG) TABLET PO SCH (07:44)
[2022-02-23] MEDS: Potassium Chloride Elixir 20 MEQ/15 ML UDC GTUBE SCH ×2 (07:44→21:12)
[2022-02-23] MEDS: Nystatin POWDER 30 GM BOTTLE TP SCH ×3 (07:45→21:11)
[2022-02-23] MEDS ORDERED: 0.9 % Sodium Chloride 250 ML IVC SCH (08:00)
[2022-02-23] MEDS: Ondansetron 4 MG/2 ML VIAL IVP PRN (09:10)
[2022-02-23 12:19] LABS: Kappa Qnt Free Light Chains 96.64 mg/L (3.30-19.40); Lambda Qnt Free Light Chains 101.83 mg/L (5.71-26.30)
[2022-02-24 05:56] LABS: Basophils % 0.2 %; Eosinophils # 0.1 K/mcL (0.0-0.6); Eosinophils % 0.7 %; Hematocrit 25.8 % (35.3-44.9); Hemoglobin 8.4 g/dL (11.5-15.4); Immature Granulocytes % 0.4 % (0-4); Lymphocytes # 1.6 K/mcL (0.6-4.6); Lymphocytes % 18.9 %; Mean Corpuscular HGB Conc 32.6 g/dL (31.6-35.5); Mean Corpuscular Hemoglobin 29.7 pg (28.0-33.3); Mean Corpuscular Volume 91.2 fL (83.0-100.0); Mean Platelet Volume 10.4 fL (9.4-12.4); Monocytes # 0.4 K/mcL (0.0-1.3); Monocytes % 4.7 %; Neutrophils # 6.3 K/mcL (1.6-8.9); Platelet Count 155 K/mcL (140-400); Red Blood Count 2.83 M/mcL (3.82-4.97); Red Cell Distribution Width 15.4 % (11.5-14.5); Segmented Neutrophils % 75.1 %; White Blood Count 8.3 K/mcL (4.3-11.1)
[2022-02-24] MEDS: *HR* Heparin 5,000 UNIT/ML VIAL SQ SCH ×2 (06:17→17:19)
[2022-02-24] MEDS: Pantoprazole 40 MG VIAL IVP SCH ×2 (06:17→17:19)
[2022-02-24 06:20] LABS: Calcium 7.8 mg/dL (8.6-10.3); Magnesium 1.6 mg/dL (1.6-2.6); Potassium 5.1 mEq/L (3.5-5.1)
[2022-02-24] MEDS: Cholecalciferol (D-3) 1,000 UNIT (25MCG) TABLET PO SCH (09:36)
[2022-02-24] MEDS: Hydrocortisone 10 MG TABLET PO SCH ×3 (09:36→21:59)
[2022-02-24] MEDS: Potassium Chloride Elixir 20 MEQ/15 ML UDC GTUBE SCH ×2 (09:36→21:55)
[2022-02-24] MEDS: Multivit/Ca/Min/Fe/FA 1 TAB TABLET PO SCH (09:36)
[2022-02-24] MEDS: Lactobacillus 1 EACH CAP.SPRINK PO SCH ×2 (09:37→21:54)
[2022-02-24] MEDS: Vancomycin Oral Soln 125 MG/2.5 ML UDC PO SCH ×4 (09:37→21:55)
[2022-02-24] MEDS: Cholestyramine 4 GM POWD.PACK PO SCH ×3 (09:37→17:20)
[2022-02-24] MEDS: Magnesium Oxide 400 MG TABLET PO SCH ×2 (09:37→21:54)
[2022-02-24] MEDS: FLUoxetine HCl 10 MG CAPSULE PO SCH (09:37)
[2022-02-24] MEDS: Nystatin POWDER 30 GM BOTTLE TP SCH ×3 (09:38→22:00)
[2022-02-24] MEDS: Psyllium 1 PACKET POWD.PACK GTUBE SCH (09:38)
[2022-02-24] MEDS: Sodium Bicarbonate 50 MEQ in 0.45 % Sodium Chloride 1,000 ML IVC SCH ×2 (09:39→22:40)
[2022-02-24] MEDS: Ondansetron 4 MG/2 ML VIAL IVP PRN (12:36)
[2022-02-24 13:48] LABS: Alpha 2 Globulin (PEP) 0.73 g/dL (0.48-1.05); Beta Globulin (PEP) 0.63 g/dL (0.48-1.10)
[2022-02-24] MEDS: Mirtazapine 15 MG TABLET PO SCH (21:54)
[2022-02-25 05:34] LABS: Basophils % 0.2 %; Eosinophils % 0.2 %; Hematocrit 27.4 % (35.3-44.9); Hemoglobin 8.7 g/dL (11.5-15.4); Immature Granulocytes % 0.4 % (0-4); Lymphocytes # 1.7 K/mcL (0.6-4.6); Mean Corpuscular HGB Conc 31.8 g/dL (31.6-35.5); Mean Corpuscular Hemoglobin 29.7 pg (28.0-33.3); Mean Corpuscular Volume 93.5 fL (83.0-100.0); Mean Platelet Volume 10.6 fL (9.4-12.4); Monocytes # 0.4 K/mcL (0.0-1.3); Monocytes % 4.3 %; Neutrophils # 7.7 K/mcL (1.6-8.9); Platelet Count 185 K/mcL (140-400); Red Blood Count 2.93 M/mcL (3.82-4.97); Red Cell Distribution Width 15.6 % (11.5-14.5); Segmented Neutrophils % 77.9 %; White Blood Count 9.9 K/mcL (4.3-11.1)
[2022-02-25 05:54] LABS: Calcium 8.2 mg/dL (8.6-10.3); Magnesium 1.5 mg/dL (1.6-2.6); Potassium 6.3 mEq/L (3.5-5.1)
[2022-02-25] MEDS: Pantoprazole 40 MG VIAL IVP SCH ×2 (06:27→17:38)
[2022-02-25] MEDS: *HR* Heparin 5,000 UNIT/ML VIAL SQ SCH ×2 (06:27→17:38)
[2022-02-25] MEDS ORDERED: Insulin Human Regular 10 UNIT in 0.9 % Sodium Chloride 10 ML IV ONE (07:24)
[2022-02-25] MEDS ORDERED: *HR* Dextrose 50 % in Water (Syg) 50 ML SYRINGE IVP ONE (07:24)
[2022-02-25] MEDS ORDERED: Calcium Gluconate 1gm/50mL 1 GM/50 ML BAG IVPB SCH (07:30)
[2022-02-25] MEDS: Cholecalciferol (D-3) 1,000 UNIT (25MCG) TABLET PO SCH (08:01)
[2022-02-25] MEDS: Magnesium Oxide 400 MG TABLET PO SCH ×2 (08:02→21:08)
[2022-02-25] MEDS: Hydrocortisone 10 MG TABLET PO SCH ×3 (08:02→21:08)
[2022-02-25] MEDS: FLUoxetine HCl 10 MG CAPSULE PO SCH (08:10)
[2022-02-25] MEDS: Lactobacillus 1 EACH CAP.SPRINK PO SCH ×2 (08:10→21:08)
[2022-02-25] MEDS: Cholestyramine 4 GM POWD.PACK PO SCH ×3 (08:10→21:10)
[2022-02-25] MEDS: Vancomycin Oral Soln 125 MG/2.5 ML UDC PO SCH ×4 (08:10→21:11)
[2022-02-25] MEDS: Multivit/Ca/Min/Fe/FA 1 TAB TABLET PO SCH (08:10)
[2022-02-25] MEDS: Nystatin POWDER 30 GM BOTTLE TP SCH ×3 (08:11→21:19)
[2022-02-25 09:17] LABS: IFE Reflexed NOT DONE
[2022-02-25 09:24] LABS: ANA IgG by ELISA NONE DETECTED (None Detected)
[2022-02-25] MEDS: Mirtazapine 15 MG TABLET PO SCH (21:08)
[2022-02-25 22:48] LABS: ANCA IFA Titer <1:20 (<1:20)
[2022-02-26 04:01] LABS: Basophils % 0.3 %; Eosinophils # 0.1 K/mcL (0.0-0.6); Eosinophils % 0.9 %; Hematocrit 29.5 % (35.3-44.9); Hemoglobin 9.5 g/dL (11.5-15.4); Immature Granulocytes % 0.3 % (0-4); Lymphocytes % 21.2 %; Mean Corpuscular HGB Conc 32.2 g/dL (31.6-35.5); Mean Corpuscular Volume 93.1 fL (83.0-100.0); Mean Platelet Volume 10.5 fL (9.4-12.4); Monocytes # 0.5 K/mcL (0.0-1.3); Neutrophils # 6.6 K/mcL (1.6-8.9); Platelet Count 175 K/mcL (140-400); Red Blood Count 3.17 M/mcL (3.82-4.97); Red Cell Distribution Width 15.5 % (11.5-14.5); Segmented Neutrophils % 72.3 %; White Blood Count 9.2 K/mcL (4.3-11.1)
[2022-02-26 04:20] LABS: Calcium 7.4 mg/dL (8.6-10.3); Magnesium 1.4 mg/dL (1.6-2.6); Potassium 4.8 mEq/L (3.5-5.1)
[2022-02-26] MEDS: Pantoprazole 40 MG VIAL IVP SCH ×2 (05:15→17:17)
[2022-02-26] MEDS: *HR* Heparin 5,000 UNIT/ML VIAL SQ SCH ×2 (05:16→17:17)
[2022-02-26] MEDS: Cholestyramine 4 GM POWD.PACK PO SCH ×3 (05:16→17:17)
[2022-02-26] MEDS: Vancomycin Oral Soln 125 MG/2.5 ML UDC PO SCH ×4 (08:41→21:36)
[2022-02-26] MEDS: Multivit/Ca/Min/Fe/FA 1 TAB TABLET PO SCH (08:41)
[2022-02-26] MEDS: Lactobacillus 1 EACH CAP.SPRINK PO SCH ×2 (08:41→21:36)
[2022-02-26] MEDS: Cholecalciferol (D-3) 1,000 UNIT (25MCG) TABLET PO SCH (08:41)
[2022-02-26] MEDS: FLUoxetine HCl 10 MG CAPSULE PO SCH (08:41)
[2022-02-26] MEDS: Magnesium Oxide 400 MG TABLET PO SCH ×2 (08:41→21:35)
[2022-02-26] MEDS: Nystatin POWDER 30 GM BOTTLE TP SCH ×3 (08:43→21:46)
[2022-02-26] MEDS: Hydrocortisone 10 MG TABLET PO SCH ×3 (10:26→21:35)
[2022-02-26] MEDS: FLUoxetine HCl Oral Soln 20 MG/5 ML UDC PO SCH (10:26)
[2022-02-26 10:30] LABS: Serine Protease-3 Antibody 2 AU/mL (0-19)
[2022-02-26 10:36] LABS: ANCA IFA Pattern NONE DETECTED (None Detected)
[2022-02-26] MEDS: Mirtazapine 15 MG TABLET PO SCH (21:35)
[2022-02-26] MEDS: Melatonin 3 MG TABLET PO PRN (21:44)
[2022-02-27 05:46] LABS: Basophils % 0.3 %; Eosinophils # 0.1 K/mcL (0.0-0.6); Eosinophils % 0.7 %; Hematocrit 30.2 % (35.3-44.9); Hemoglobin 9.3 g/dL (11.5-15.4); Immature Granulocytes % 0.3 % (0-4); Lymphocytes # 2.1 K/mcL (0.6-4.6); Mean Corpuscular HGB Conc 30.8 g/dL (31.6-35.5); Mean Corpuscular Hemoglobin 29.2 pg (28.0-33.3); Mean Platelet Volume 10.4 fL (9.4-12.4); Monocytes # 0.5 K/mcL (0.0-1.3); Monocytes % 5.4 %; Neutrophils # 6.3 K/mcL (1.6-8.9); Platelet Count 176 K/mcL (140-400); Red Blood Count 3.18 M/mcL (3.82-4.97); Red Cell Distribution Width 15.7 % (11.5-14.5); Segmented Neutrophils % 70.3 %; White Blood Count 8.9 K/mcL (4.3-11.1)
[2022-02-27 06:07] LABS: Albumin 2.8 g/dL (3.5-5.7); Albumin/Globulin Ratio 1.3 (1.1-2.2); Bilirubin,Total 0.4 mg/dL (0.3-1.0); Calcium 8.1 mg/dL (8.6-10.3); Globulin 2.1 g/dL (2.4-3.5); Potassium 5.3 mEq/L (3.5-5.1); Total Protein 4.9 g/dL (6.4-8.9)
[2022-02-27] MEDS: *HR* Heparin 5,000 UNIT/ML VIAL SQ SCH ×2 (06:54→17:14)
[2022-02-27] MEDS: Cholestyramine 4 GM POWD.PACK PO SCH ×3 (06:56→17:36)
[2022-02-27] MEDS: Pantoprazole 40 MG VIAL IVP SCH ×2 (06:59→17:36)
[2022-02-27] MEDS: FLUoxetine HCl Oral Soln 20 MG/5 ML UDC PO SCH (10:54)
[2022-02-27] MEDS: Multivit/Ca/Min/Fe/FA 1 TAB TABLET PO SCH (10:54)
[2022-02-27] MEDS: Hydrocortisone 10 MG TABLET PO SCH ×3 (10:55→21:23)
[2022-02-27] MEDS: Lactobacillus 1 EACH CAP.SPRINK PO SCH ×2 (10:56→21:23)
[2022-02-27] MEDS: Magnesium Oxide 400 MG TABLET PO SCH ×2 (10:56→21:23)
[2022-02-27] MEDS: Vancomycin Oral Soln 125 MG/2.5 ML UDC PO SCH ×4 (10:57→21:24)
[2022-02-27] MEDS: Nystatin POWDER 30 GM BOTTLE TP SCH ×3 (10:58→22:21)
[2022-02-27] MEDS: Cholecalciferol (D-3) 1,000 UNIT (25MCG) TABLET PO SCH (11:05)
[2022-02-27] MEDS ORDERED: SODIUM ZIRCONIUM CYCLOSILICATE 5 GM POWD.PACK PO ONE (12:18)
[2022-02-27] MEDS: Mirtazapine 15 MG TABLET PO SCH (21:23)
[2022-02-28 06:29] LABS: Hematocrit 28.1 % (35.3-44.9); Hemoglobin 8.9 g/dL (11.5-15.4); Mean Corpuscular HGB Conc 31.7 g/dL (31.6-35.5); Mean Corpuscular Hemoglobin 29.5 pg (28.0-33.3); Platelet Count 166 K/mcL (140-400); Red Blood Count 3.02 M/mcL (3.82-4.97); Red Cell Distribution Width 15.5 % (11.5-14.5); White Blood Count 7.8 K/mcL (4.3-11.1)
[2022-02-28 06:30] LABS: Basophils % 0.3 %; Eosinophils # 0.1 K/mcL (0.0-0.6); Eosinophils % 0.6 %; Immature Granulocytes % 0.3 % (0-4); Lymphocytes # 1.9 K/mcL (0.6-4.6); Lymphocytes % 24.5 %; Mean Platelet Volume 10.5 fL (9.4-12.4); Monocytes # 0.5 K/mcL (0.0-1.3); Monocytes % 5.9 %; Neutrophils # 5.4 K/mcL (1.6-8.9); Segmented Neutrophils % 68.4 %
[2022-02-28] MEDS: Pantoprazole 40 MG VIAL IVP SCH ×2 (06:34→16:20)
[2022-02-28] MEDS: *HR* Heparin 5,000 UNIT/ML VIAL SQ SCH ×2 (06:35→16:20)
[2022-02-28] MEDS: Cholestyramine 4 GM POWD.PACK PO SCH ×3 (06:36→20:04)
[2022-02-28 06:58] LABS: Albumin 2.8 g/dL (3.5-5.7); Albumin/Globulin Ratio 1.4 (1.1-2.2); Bilirubin,Total 0.4 mg/dL (0.3-1.0); Calcium 8.1 mg/dL (8.6-10.3); Potassium 4.2 mEq/L (3.5-5.1); Total Protein 4.8 g/dL (6.4-8.9)
[2022-02-28] MEDS: Lactobacillus 1 EACH CAP.SPRINK PO SCH ×2 (09:27→20:04)
[2022-02-28] MEDS: FLUoxetine HCl Oral Soln 20 MG/5 ML UDC PO SCH (09:27)
[2022-02-28] MEDS: Vancomycin Oral Soln 125 MG/2.5 ML UDC PO SCH ×4 (09:27→20:05)
[2022-02-28] MEDS: Hydrocortisone 10 MG TABLET PO SCH ×3 (09:27→20:04)
[2022-02-28] MEDS: Cholecalciferol (D-3) 1,000 UNIT (25MCG) TABLET PO SCH (09:28)
[2022-02-28] MEDS: Nystatin POWDER 30 GM BOTTLE TP SCH ×3 (09:28→20:06)
[2022-02-28] MEDS: Magnesium Oxide 400 MG TABLET PO SCH ×2 (09:28→20:05)
[2022-02-28] MEDS: Multivit/Ca/Min/Fe/FA 1 TAB TABLET PO SCH (09:28)
[2022-02-28] MEDS: Mirtazapine 15 MG TABLET PO SCH (20:05)
[2022-02-28] MEDS: Melatonin 3 MG TABLET PO PRN (20:05)
[2022-03-01] MEDS: Cholestyramine 4 GM POWD.PACK PO SCH ×3 (05:02→18:43)
[2022-03-01] MEDS: *HR* Heparin 5,000 UNIT/ML VIAL SQ SCH ×2 (05:02→17:31)
[2022-03-01] MEDS: Pantoprazole 40 MG VIAL IVP SCH ×2 (05:04→17:31)
[2022-03-01 05:45] LABS: Basophils % 0.1 %; Eosinophils % 0.4 %; Hematocrit 26.8 % (35.3-44.9); Hemoglobin 8.6 g/dL (11.5-15.4); Immature Granulocytes % 0.3 % (0-4); Lymphocytes # 1.9 K/mcL (0.6-4.6); Lymphocytes % 27.9 %; Mean Corpuscular HGB Conc 32.1 g/dL (31.6-35.5); Mean Corpuscular Hemoglobin 29.8 pg (28.0-33.3); Mean Corpuscular Volume 92.7 fL (83.0-100.0); Mean Platelet Volume 10.2 fL (9.4-12.4); Monocytes # 0.4 K/mcL (0.0-1.3); Monocytes % 5.6 %; Neutrophils # 4.5 K/mcL (1.6-8.9); Platelet Count 154 K/mcL (140-400); Red Blood Count 2.89 M/mcL (3.82-4.97); Red Cell Distribution Width 15.6 % (11.5-14.5); Segmented Neutrophils % 65.7 %; White Blood Count 6.9 K/mcL (4.3-11.1)
[2022-03-01 05:46] LABS: Albumin 2.8 g/dL (3.5-5.7); Albumin/Globulin Ratio 1.3 (1.1-2.2); Bilirubin,Total 0.4 mg/dL (0.3-1.0); Calcium 8.2 mg/dL (8.6-10.3); Globulin 2.2 g/dL (2.4-3.5)
[2022-03-01] MEDS ORDERED: 0.9 % Sodium Chloride 1,000 ML IVC SCH (07:45)
[2022-03-01] MEDS: Vancomycin Oral Soln 125 MG/2.5 ML UDC PO SCH ×5 (10:25→21:01)
[2022-03-01] MEDS: Multivit/Ca/Min/Fe/FA 1 TAB TABLET PO SCH ×2 (10:25→10:41)
[2022-03-01] MEDS: Hydrocortisone 10 MG TABLET PO SCH ×4 (10:26→21:00)
[2022-03-01] MEDS: Magnesium Oxide 400 MG TABLET PO SCH ×3 (10:26→21:01)
[2022-03-01] MEDS: Cholecalciferol (D-3) 1,000 UNIT (25MCG) TABLET PO SCH ×2 (10:26→10:41)
[2022-03-01] MEDS: Lactobacillus 1 EACH CAP.SPRINK PO SCH ×3 (10:26→21:01)
[2022-03-01] MEDS: FLUoxetine HCl Oral Soln 20 MG/5 ML UDC PO SCH ×2 (10:27→10:41)
[2022-03-01] MEDS: Nystatin POWDER 30 GM BOTTLE TP SCH ×3 (10:41→21:49)
[2022-03-01] MEDS: Mirtazapine 15 MG TABLET PO SCH (21:02)
[2022-03-02] MEDS: *HR* Heparin 5,000 UNIT/ML VIAL SQ SCH ×2 (05:17→18:01)
[2022-03-02] MEDS: Cholestyramine 4 GM POWD.PACK PO SCH ×3 (05:18→18:01)
[2022-03-02] MEDS: Pantoprazole 40 MG VIAL IVP SCH ×2 (05:18→18:02)
[2022-03-02 06:00] LABS: Basophils % 0.4 %; Eosinophils % 0.8 %; Hematocrit 24.9 % (35.3-44.9); Hemoglobin 7.9 g/dL (11.5-15.4); Immature Granulocytes % 0.2 % (0-4); Lymphocytes # 1.4 K/mcL (0.6-4.6); Lymphocytes % 29.3 %; Mean Corpuscular HGB Conc 31.7 g/dL (31.6-35.5); Mean Corpuscular Hemoglobin 29.5 pg (28.0-33.3); Mean Corpuscular Volume 92.9 fL (83.0-100.0); Mean Platelet Volume 10.5 fL (9.4-12.4); Monocytes # 0.3 K/mcL (0.0-1.3); Neutrophils # 3.1 K/mcL (1.6-8.9); Platelet Count 124 K/mcL (140-400); Red Blood Count 2.68 M/mcL (3.82-4.97); Red Cell Distribution Width 15.6 % (11.5-14.5); Segmented Neutrophils % 63.3 %; White Blood Count 4.8 K/mcL (4.3-11.1)
[2022-03-02 06:25] LABS: Calcium 7.7 mg/dL (8.6-10.3); Potassium 3.5 mEq/L (3.5-5.1)
[2022-03-02 08:21] LABS: Magnesium 1.6 mg/dL (1.6-2.6)
[2022-03-02] MEDS: Cholecalciferol (D-3) 1,000 UNIT (25MCG) TABLET PO SCH (10:59)
[2022-03-02] MEDS ORDERED: 0.9 % Sodium Chloride 1,000 ML IVC SCH (11:00)
[2022-03-02] MEDS: Nystatin POWDER 30 GM BOTTLE TP SCH ×3 (11:00→20:53)
[2022-03-02] MEDS: Vancomycin Oral Soln 125 MG/2.5 ML UDC PO SCH ×4 (11:00→20:52)
[2022-03-02] MEDS: Lactobacillus 1 EACH CAP.SPRINK PO SCH ×2 (11:01→20:51)
[2022-03-02] MEDS: FLUoxetine HCl Oral Soln 20 MG/5 ML UDC PO SCH (11:01)
[2022-03-02] MEDS: Multivit/Ca/Min/Fe/FA 1 TAB TABLET PO SCH (11:01)
[2022-03-02] MEDS: Magnesium Oxide 400 MG TABLET PO SCH ×2 (11:01→20:51)
[2022-03-02] MEDS: Hydrocortisone 10 MG TABLET PO SCH ×3 (11:03→20:51)
[2022-03-03] MEDS: Mirtazapine 15 MG TABLET PO SCH (00:35)
[2022-03-03] MEDS: Pantoprazole 40 MG VIAL IVP SCH (03:46)
[2022-03-03] MEDS: *HR* Heparin 5,000 UNIT/ML VIAL SQ SCH (03:47)
[2022-03-03] MEDS: Cholestyramine 4 GM POWD.PACK PO SCH (03:47)
[2022-03-03 04:26] LABS: Basophils % 0.2 %; Eosinophils % 0.2 %; Hematocrit 25.1 % (35.3-44.9); Immature Granulocytes % 0.3 % (0-4); Lymphocytes # 1.4 K/mcL (0.6-4.6); Lymphocytes % 22.5 %; Mean Corpuscular HGB Conc 31.9 g/dL (31.6-35.5); Mean Corpuscular Hemoglobin 29.9 pg (28.0-33.3); Mean Corpuscular Volume 93.7 fL (83.0-100.0); Mean Platelet Volume 10.8 fL (9.4-12.4); Monocytes # 0.2 K/mcL (0.0-1.3); Monocytes % 3.8 %; Neutrophils # 4.4 K/mcL (1.6-8.9); Platelet Count 136 K/mcL (140-400); Red Blood Count 2.68 M/mcL (3.82-4.97); Red Cell Distribution Width 15.8 % (11.5-14.5); White Blood Count 6.1 K/mcL (4.3-11.1)
[2022-03-03 04:41] LABS: Calcium 7.8 mg/dL (8.6-10.3); Potassium 3.3 mEq/L (3.5-5.1)
[2022-03-03 07:24] VITALS: BP 108/62; PULSE 67; TEMP 97.5; O2SAT 99
[2022-03-03] MEDS: Multivit/Ca/Min/Fe/FA 1 TAB TABLET PO SCH (07:57)
[2022-03-03] MEDS: Cholecalciferol (D-3) 1,000 UNIT (25MCG) TABLET PO SCH (07:58)
[2022-03-03] MEDS: Vancomycin Oral Soln 125 MG/2.5 ML UDC PO SCH ×2 (07:58→12:59)
[2022-03-03] MEDS: Hydrocortisone 10 MG TABLET PO SCH (07:58)
[2022-03-03] MEDS: Lactobacillus 1 EACH CAP.SPRINK PO SCH (07:58)
[2022-03-03] MEDS: Magnesium Oxide 400 MG TABLET PO SCH (07:58)
[2022-03-03] MEDS: FLUoxetine HCl Oral Soln 20 MG/5 ML UDC PO SCH (07:59)
[2022-03-03] MEDS ORDERED: Potassium Chloride Elixir 20 MEQ/15 ML UDC GTUBE ONE (12:42)
== END 2022-03-03 13:47 | DRG 871 ==
LOC: EMEROOARM 14:27 → 3NENU 14:27 → SUATTDRO 18:26 → 3NENU 19:43 → SUATTDRO 22:25 → 3NENU 02-19 19:54
PROVIDERS: ADMIT Internal Medicine; ATTEND Hospitalist

== ENCOUNTER 2022-04-03 20:03 | Inpatient (IN) ==
[2022-04-03 21:06] LABS: Basophils # 0.1 K/mcL (0.0-0.2); Basophils % 0.3 %; Eosinophils # 0.2 K/mcL (0.0-0.6); Hematocrit 22.6 % (35.3-44.9); Hemoglobin 7.9 g/dL (11.5-15.4); Immature Granulocytes % 1.6 % (0-4); Lymphocytes # 1.9 K/mcL (0.6-4.6); Lymphocytes % 10.3 %; Mean Corpuscular Hemoglobin 28.9 pg (28.0-33.3); Mean Platelet Volume 10.5 fL (9.4-12.4); Monocytes # 1.1 K/mcL (0.0-1.3); Monocytes % 5.8 %; Neutrophils # 14.7 K/mcL (1.6-8.9); Platelet Count 365 K/mcL (140-400); Red Blood Count 2.73 M/mcL (3.82-4.97); Red Cell Distribution Width 14.1 % (11.5-14.5); White Blood Count 18.2 K/mcL (4.3-11.1)
[2022-04-03 21:14] LABS: Mean Corpuscular Volume 82.8 fL (83.0-100.0)
[2022-04-03 21:37] LABS: Alanine Aminotransferase 6 Units/L (7-52); Albumin/Globulin Ratio 0.8 (1.1-2.2); Alkaline Phosphatase 79 Units/L (34-104); Aspartate Amino Transferase 11 Units/L (13-39); BUN/Creatinine Ratio 21 (6-26); Bilirubin,Total 0.4 mg/dL (0.3-1.0); Blood Urea Nitrogen 120 mg/dL (8-23); Calcium 8.6 mg/dL (8.6-10.3); Carbon Dioxide 32 mEq/L (23-29); Chloride 64 mEq/L (98-107); Globulin 3.7 g/dL (2.4-3.5); Glucose 120 mg/dL (70-105); Magnesium 1.8 mg/dL (1.6-2.6); Osmolality,Calculated 274 (280-300); Phosphorous 5.6 mg/dL (2.7-4.5); Potassium 3.6 mEq/L (3.5-5.1); Sodium 112 mEq/L (136-145); Total Protein 6.7 g/dL (6.4-8.9); Troponin I < 0.03 ng/mL (< 0.04)
[2022-04-03 21:43] LABS: Bilirubin,Urine Negative (Negative); Blood,Urine Small (Negative); Clarity,Urine Ex.Turbid (Clear); Color,Urine Yellow (Yellow); Glucose,Urine (UA) Normal (Normal); Ketones,Urine Negative (Negative); Leukocyte Esterase,Urine Large (Negative); Mucus,Urine Few per lpf (None-Few); Nitrite,Urine Negative (Negative); PH,Urine 6.5 pH Units (5.0-8.0); Protein,Urine 70 mg/dL (Neg-Trace); Urobilinogen,Urine Normal (Normal); WBC,Urine TNTC per hpf (0-3)
[2022-04-03] MEDS ORDERED: 0.9 % Sodium Chloride 500 ML IVC ONE (21:44)
[2022-04-03] MEDS ORDERED: Hydrocortisone Sodium Succ 100 MG/2 ML VIAL IVP ONE (22:15)
[2022-04-03 22:37] LABS: Sodium, Urine 14.4 mEq/L
[2022-04-03] MEDS ORDERED: cefTRIAXone 1,000 MG in Water for inj. (sterile) 10 ML IVP ONE ×2 (23:07→23:31)
[2022-04-03] MEDS ORDERED: Naloxone 0.4 MG/ML INJ IVP PRN (23:27)
[2022-04-03] MEDS ORDERED: D5% in Water 1,000 ML IVC PRN (23:32)
[2022-04-03] MEDS ORDERED: *HR* Dextrose 50 % in Water (Syg) 50 ML SYRINGE IVP PRN (23:32)
[2022-04-03] MEDS ORDERED: Dextrose Gel 15 GM/37.5 ML TUBE PO PRN ×2 (23:32)
[2022-04-04] MEDS: 0.9 % Sodium Chloride 1,000 ML IVC SCH ×2 (00:13→13:48)
[2022-04-04] MEDS: Insulin LISPRO 300 UNITS/3 ML VIAL SUBQ SCH ×6 (01:24→21:20)
[2022-04-04] MEDS: *HR* Heparin 5,000 UNIT/ML VIAL SQ SCH ×3 (01:54→16:29)
[2022-04-04] MEDS: Hydrocortisone Sodium Succ 100 MG/2 ML VIAL IVP SCH ×4 (01:55→17:00)
[2022-04-04 02:26] LABS: Basophils % 0.2 %; Eosinophils % 0.1 %; Hematocrit 23.1 % (35.3-44.9); Immature Granulocytes % 2.2 % (0-4); Lymphocytes # 0.9 K/mcL (0.6-4.6); Lymphocytes % 4.7 %; Mean Corpuscular HGB Conc 34.6 g/dL (31.6-35.5); Mean Corpuscular Hemoglobin 28.7 pg (28.0-33.3); Mean Corpuscular Volume 82.8 fL (83.0-100.0); Mean Platelet Volume 10.6 fL (9.4-12.4); Monocytes # 0.3 K/mcL (0.0-1.3); Monocytes % 1.6 %; Neutrophils # 16.8 K/mcL (1.6-8.9); Platelet Count 338 K/mcL (140-400); Red Blood Count 2.79 M/mcL (3.82-4.97); Red Cell Distribution Width 13.8 % (11.5-14.5); Segmented Neutrophils % 91.2 %; White Blood Count 18.4 K/mcL (4.3-11.1)
[2022-04-04 02:51] LABS: BUN/Creatinine Ratio 21 (6-26); Blood Urea Nitrogen 120 mg/dL (8-23); Calcium 8.6 mg/dL (8.6-10.3); Carbon Dioxide 31 mEq/L (23-29); Chloride 68 mEq/L (98-107); Glucose 130 mg/dL (70-105); Osmolality,Calculated 278 (280-300); Potassium 3.7 mEq/L (3.5-5.1); Sodium 114 mEq/L (136-145)
[2022-04-04 04:19] LABS: Calcium 8.5 mg/dL (8.6-10.3); Potassium 3.6 mEq/L (3.5-5.1)
[2022-04-04 04:30] LABS: Creatine Kinase < 10 Units/L (30-223); Magnesium 1.7 mg/dL (1.6-2.6); Phosphorous 5.7 mg/dL (2.7-4.5)
[2022-04-04] MEDS ORDERED: Albumin Human 5% 12.5 GM/250 ML IV.SOLN IVPB ONE (05:06)
[2022-04-04] MEDS ORDERED: Cefepime HCl 1,000 MG in 0.9 % Sodium Chloride Mini Bag 100 ML IVPB SCH (06:00)
[2022-04-04 06:28] LABS: Basophils % 0.1 %; Hematocrit 21.6 % (35.3-44.9); Hemoglobin 7.5 g/dL (11.5-15.4); Immature Granulocytes % 1.7 % (0-4); Lymphocytes # 0.8 K/mcL (0.6-4.6); Lymphocytes % 5.2 %; Mean Corpuscular HGB Conc 34.7 g/dL (31.6-35.5); Mean Corpuscular Hemoglobin 28.8 pg (28.0-33.3); Mean Corpuscular Volume 83.1 fL (83.0-100.0); Mean Platelet Volume 10.3 fL (9.4-12.4); Monocytes # 0.1 K/mcL (0.0-1.3); Monocytes % 0.7 %; Neutrophils # 14.3 K/mcL (1.6-8.9); Platelet Count 333 K/mcL (140-400); Red Cell Distribution Width 13.7 % (11.5-14.5); Segmented Neutrophils % 92.3 %; White Blood Count 15.5 K/mcL (4.3-11.1)
[2022-04-04 06:51] LABS: Calcium 8.4 mg/dL (8.6-10.3)
[2022-04-04] MEDS ORDERED: cefTRIAXone 2,000 MG in 0.9 % Sodium Chloride 20 ML IVP SCH (09:00)
[2022-04-04 11:12] LABS: Campylobacter by PCR Not detected (Not detect)
[2022-04-04 11:13] LABS: Adenovirus F 40/41 PCR Not detected (Not detect); Astrovirus PCR Not detected (Not detect); C.difficile Toxin A/B Gene PCR DETECTED (Not detect); Cryptosporidium by PCR Not detected (Not detect); Cyclospora cayetanensis PCR Not detected (Not detect); E. coli O157 by PCR Not detected (Not detect); Entamoeba histolytica PCR Not detected (Not detect); Enteroaggregative E.coli(EAEC) Not detected (Not detect); Enteropathogenic E.coli(EPEC) Not detected (Not detect); Enterotoxigenic E.coli (ETEC) Not detected (Not detect); Giardia lamblia PCR Not detected (Not detect); Norovirus GI/GII PCR Not detected (Not detect); Plesiomonas shigelloides PCR Not detected (Not detect); Rotavirus A PCR Not detected (Not detect); Salmonella PCR Not detected (Not detect); Sapovirus PCR Not detected (Not detect); Shig/EnteroinvasiveE coli EIEC Not detected (Not detect); Shigalike tox-prod E coli STEC Not detected (Not detect); Vibrio PCR Not detected (Not detect); Vibrio cholerae PCR Not detected (Not detect); Yersinia enterocolitica PCR Not detected (Not detect)
[2022-04-04 11:33] LABS: Calcium 8.6 mg/dL (8.6-10.3); Potassium 4.2 mEq/L (3.5-5.1)
[2022-04-04] MEDS ORDERED: Fosfomycin Tromethamine 3 GM Packet PO ONE (12:30)
[2022-04-04] MEDS: Vancomycin Oral Soln 125 MG/2.5 ML UDC PO SCH ×3 (16:30→23:34)
[2022-04-04 17:50] LABS: Thyroid Stimulating Hormone 2.589 mcIU/mL (0.340-5.600)
[2022-04-04 18:44] LABS: Calcium 8.4 mg/dL (8.6-10.3); Potassium 3.5 mEq/L (3.5-5.1)
[2022-04-04] MEDS: D5% in 0.45% NACL 1,000 ML IVC SCH (21:19)
[2022-04-05] MEDS: Hydrocortisone Sodium Succ 100 MG/2 ML VIAL IVP SCH ×4 (01:44→17:01)
[2022-04-05] MEDS: *HR* Heparin 5,000 UNIT/ML VIAL SQ SCH ×3 (01:44→17:09)
[2022-04-05 02:27] LABS: Basophils # 0.1 K/mcL (0.0-0.2); Basophils % 0.4 %; Eosinophils # 0.1 K/mcL (0.0-0.6); Eosinophils % 0.6 %; Hematocrit 22.8 % (35.3-44.9); Hemoglobin 7.7 g/dL (11.5-15.4); Immature Granulocytes % 2.1 % (0-4); Lymphocytes % 12.7 %; Mean Corpuscular HGB Conc 33.8 g/dL (31.6-35.5); Mean Corpuscular Hemoglobin 28.2 pg (28.0-33.3); Mean Corpuscular Volume 83.5 fL (83.0-100.0); Mean Platelet Volume 10.2 fL (9.4-12.4); Monocytes # 0.8 K/mcL (0.0-1.3); Monocytes % 4.8 %; Neutrophils # 12.7 K/mcL (1.6-8.9); Platelet Count 386 K/mcL (140-400); Red Blood Count 2.73 M/mcL (3.82-4.97); Red Cell Distribution Width 13.7 % (11.5-14.5); Segmented Neutrophils % 79.4 %
[2022-04-05 02:45] LABS: Calcium 8.6 mg/dL (8.6-10.3); Magnesium 1.7 mg/dL (1.6-2.6); Phosphorous 5.8 mg/dL (2.7-4.5); Potassium 2.8 mEq/L (3.5-5.1)
[2022-04-05] MEDS ORDERED: Calcium Gluconate 1gm/50mL 1 GM/50 ML BAG IVPB PRN (03:03)
[2022-04-05] MEDS: Norepinephrine 4 MG/254 ML IV.SOLN IVC SCH (04:13)
[2022-04-05 04:20] LABS: Basophils % 0.3 %; Eosinophils # 0.1 K/mcL (0.0-0.6); Eosinophils % 0.4 %; Hematocrit 21.4 % (35.3-44.9); Hemoglobin 7.3 g/dL (11.5-15.4); Immature Granulocytes % 2.3 % (0-4); Lymphocytes # 0.4 K/mcL (0.6-4.6); Mean Corpuscular HGB Conc 34.1 g/dL (31.6-35.5); Mean Corpuscular Hemoglobin 28.4 pg (28.0-33.3); Mean Corpuscular Volume 83.3 fL (83.0-100.0); Mean Platelet Volume 10.2 fL (9.4-12.4); Monocytes # 0.5 K/mcL (0.0-1.3); Monocytes % 3.7 %; Neutrophils # 12.4 K/mcL (1.6-8.9); Platelet Count 309 K/mcL (140-400); Red Blood Count 2.57 M/mcL (3.82-4.97); Red Cell Distribution Width 13.7 % (11.5-14.5); Segmented Neutrophils % 90.3 %; White Blood Count 13.8 K/mcL (4.3-11.1)
[2022-04-05 04:23] LABS: VBG Ionized Calcium 1.01 mmol/L (1.15-1.35)
[2022-04-05 04:39] LABS: Calcium 8.4 mg/dL (8.6-10.3); Potassium 2.9 mEq/L (3.5-5.1)
[2022-04-05] MEDS: Insulin LISPRO 300 UNITS/3 ML VIAL SUBQ SCH ×5 (08:00→21:19)
[2022-04-05] MEDS: D5% in 0.45% NACL 1,000 ML IVC SCH (11:01)
[2022-04-05] MEDS: Vancomycin Oral Soln 125 MG/2.5 ML UDC PO SCH ×5 (11:30→21:21)
[2022-04-05] MEDS ORDERED: 0.9 % Sodium Chloride 1,000 ML IVC SCH (14:30)
[2022-04-05 20:04] LABS: Basophils % 0.1 %; Eosinophils % 0.1 %; Hematocrit 21.4 % (35.3-44.9); Hemoglobin 7.4 g/dL (11.5-15.4); Lymphocytes # 0.7 K/mcL (0.6-4.6); Mean Corpuscular HGB Conc 34.6 g/dL (31.6-35.5); Mean Corpuscular Hemoglobin 29.1 pg (28.0-33.3); Mean Corpuscular Volume 84.3 fL (83.0-100.0); Mean Platelet Volume 9.6 fL (9.4-12.4); Monocytes # 0.4 K/mcL (0.0-1.3); Monocytes % 2.9 %; Neutrophils # 10.6 K/mcL (1.6-8.9); Platelet Count 282 K/mcL (140-400); Red Blood Count 2.54 M/mcL (3.82-4.97); Red Cell Distribution Width 13.6 % (11.5-14.5); Segmented Neutrophils % 87.9 %; White Blood Count 12.1 K/mcL (4.3-11.1)
[2022-04-05 20:25] LABS: Calcium 8.4 mg/dL (8.6-10.3); Potassium 3.6 mEq/L (3.5-5.1)
[2022-04-05] MEDS ORDERED: Naloxone 0.4 MG/ML INJ IVP PRN (20:47)
[2022-04-05] MEDS ORDERED: Dextrose Gel 15 GM/37.5 ML TUBE PO PRN ×2 (20:47)
[2022-04-05] MEDS ORDERED: *HR* Dextrose 50 % in Water (Syg) 50 ML SYRINGE IVP PRN (20:47)
[2022-04-05] MEDS ORDERED: D5% in Water 1,000 ML IVC PRN (20:47)
[2022-04-05] MEDS ORDERED: Mirtazapine 15 MG TABLET PO SCH (21:00)
[2022-04-05] MEDS ORDERED: Mirtazapine 15 MG TABLET GTUBE SCH (21:00)
[2022-04-05] MEDS ORDERED: Latanoprost 2.5 ML BOTTLE BOTH EYES SCH (21:00)
[2022-04-05] MEDS: Latanoprost 2.5 ML BOTTLE BOTH EYES SCH (21:22)
[2022-04-05] MEDS: 0.9 % Sodium Chloride 1,000 ML IVC SCH (21:22)
[2022-04-05] MEDS: Mirtazapine 15 MG TABLET GTUBE SCH (22:15)
[2022-04-06] MEDS: *HR* Heparin 5,000 UNIT/ML VIAL SQ SCH ×3 (00:06→16:56)
[2022-04-06] MEDS: Hydrocortisone Sodium Succ 100 MG/2 ML VIAL IVP SCH ×4 (00:27→21:24)
[2022-04-06 00:32] LABS: Calcium 8.3 mg/dL (8.6-10.3); Potassium 3.3 mEq/L (3.5-5.1)
[2022-04-06 03:40] LABS: Calcium 8.5 mg/dL (8.6-10.3); Magnesium 2.2 mg/dL (1.6-2.6); Phosphorous 5.2 mg/dL (2.7-4.5); Potassium 3.4 mEq/L (3.5-5.1)
[2022-04-06 03:49] LABS: Basophils % 0.3 %; Eosinophils % 0.1 %; Hematocrit 23.8 % (35.3-44.9); Hemoglobin 7.9 g/dL (11.5-15.4); Immature Granulocytes % 3.7 % (0-4); Lymphocytes % 6.8 %; Mean Corpuscular HGB Conc 33.2 g/dL (31.6-35.5); Mean Corpuscular Hemoglobin 28.4 pg (28.0-33.3); Mean Corpuscular Volume 85.6 fL (83.0-100.0); Mean Platelet Volume 10.6 fL (9.4-12.4); Monocytes # 0.4 K/mcL (0.0-1.3); Monocytes % 2.8 %; Neutrophils # 12.5 K/mcL (1.6-8.9); Platelet Count 359 K/mcL (140-400); Red Blood Count 2.78 M/mcL (3.82-4.97); Red Cell Distribution Width 13.6 % (11.5-14.5); Segmented Neutrophils % 86.3 %; White Blood Count 14.5 K/mcL (4.3-11.1)
[2022-04-06] MEDS: FLUoxetine HCl Oral Soln 20 MG/5 ML UDC GTUBE SCH (08:51)
[2022-04-06] MEDS: Vancomycin Oral Soln 125 MG/2.5 ML UDC PO SCH ×4 (08:51→21:26)
[2022-04-06] MEDS: 0.9 % Sodium Chloride 1,000 ML IVC SCH (08:53)
[2022-04-06] MEDS ORDERED: FLUoxetine HCl Oral Soln 20 MG/5 ML UDC GTUBE SCH (09:00)
[2022-04-06] MEDS: Insulin LISPRO 300 UNITS/3 ML VIAL SUBQ SCH ×4 (09:06→21:28)
[2022-04-06] MEDS: Latanoprost 2.5 ML BOTTLE BOTH EYES SCH (21:26)
[2022-04-06] MEDS: Lactobacillus 1 EACH CAP.SPRINK GTUBE SCH (21:27)
[2022-04-06] MEDS: Mirtazapine 15 MG TABLET GTUBE SCH (21:27)
[2022-04-07] MEDS: 0.9 % Sodium Chloride 1,000 ML IVC SCH ×2 (00:01→10:27)
[2022-04-07] MEDS: *HR* Heparin 5,000 UNIT/ML VIAL SQ SCH ×2 (00:10→08:09)
[2022-04-07 04:52] LABS: Hematocrit 21.4 % (35.3-44.9); Mean Corpuscular HGB Conc 32.7 g/dL (31.6-35.5); Mean Corpuscular Hemoglobin 28.3 pg (28.0-33.3); Mean Corpuscular Volume 86.6 fL (83.0-100.0); Mean Platelet Volume 9.9 fL (9.4-12.4); Platelet Count 379 K/mcL (140-400); Red Blood Count 2.47 M/mcL (3.82-4.97); Red Cell Distribution Width 13.9 % (11.5-14.5); White Blood Count 13.8 K/mcL (4.3-11.1)
[2022-04-07 05:10] LABS: Calcium 8.2 mg/dL (8.6-10.3); Potassium 3.4 mEq/L (3.5-5.1)
[2022-04-07] MEDS: Hydrocortisone Sodium Succ 100 MG/2 ML VIAL IVP SCH ×4 (05:21→22:31)
[2022-04-07 06:14] LABS: Lymphocytes # 1.7 K/mcL (0.6-4.6); Monocytes # 0.6 K/mcL (0.0-1.3); Neutrophils # 11.6 K/mcL (1.6-8.9); Platelet Estimate Normal (Normal)
[2022-04-07 06:15] LABS: Hypochromasia Present (Not Present)
[2022-04-07] MEDS: Insulin LISPRO 300 UNITS/3 ML VIAL SUBQ SCH ×4 (08:01→22:33)
[2022-04-07] MEDS: Vancomycin Oral Soln 125 MG/2.5 ML UDC PO SCH (08:08)
[2022-04-07] MEDS: Lactobacillus 1 EACH CAP.SPRINK GTUBE SCH ×2 (08:09→22:31)
[2022-04-07] MEDS: FLUoxetine HCl Oral Soln 20 MG/5 ML UDC GTUBE SCH (08:09)
[2022-04-07] MEDS ORDERED: Fosfomycin Tromethamine 3 GM Packet PO ONE ×2 (09:00)
[2022-04-07] MEDS ORDERED: Ertapenem 1,000 MG in 0.9 % Sodium Chloride Mini Bag 100 ML IVPB SCH (12:00)
[2022-04-07] MEDS ORDERED: Vancomycin Oral Soln 125 MG/2.5 ML UDC GTUBE SCH (13:00)
[2022-04-07 13:07] LABS: Hematocrit 21.5 % (35.3-44.9)
[2022-04-07] MEDS: MetroNIDAZOLE 500 MG/100 ML 500 MG/100 ML BAG IVPB SCH ×2 (15:14→22:30)
[2022-04-07] MEDS: Vancomycin Oral Soln 125 MG/2.5 ML UDC GTUBE SCH ×2 (16:30→22:38)
[2022-04-07] MEDS: Mirtazapine 15 MG TABLET GTUBE SCH (22:31)
[2022-04-07] MEDS: Latanoprost 2.5 ML BOTTLE BOTH EYES SCH (22:33)
[2022-04-08] MEDS: 0.9 % Sodium Chloride 1,000 ML IVC SCH ×2 (00:06→12:08)
[2022-04-08 06:09] LABS: Hematocrit 20.4 % (35.3-44.9); Hemoglobin 6.5 g/dL (11.5-15.4); Mean Corpuscular HGB Conc 31.9 g/dL (31.6-35.5); Mean Corpuscular Hemoglobin 28.4 pg (28.0-33.3); Mean Corpuscular Volume 89.1 fL (83.0-100.0); Platelet Count 324 K/mcL (140-400); Red Blood Count 2.29 M/mcL (3.82-4.97); Red Cell Distribution Width 14.3 % (11.5-14.5); White Blood Count 12.4 K/mcL (4.3-11.1)
[2022-04-08 06:37] LABS: Potassium 3.5 mEq/L (3.5-5.1)
[2022-04-08 06:38] LABS: Magnesium 1.7 mg/dL (1.6-2.6); Phosphorous 3.7 mg/dL (2.7-4.5)
[2022-04-08 06:55] LABS: Hypochromasia Present (Not Present); Lymphocytes # 4.5 K/mcL (0.6-4.6); Monocytes # 0.5 K/mcL (0.0-1.3); Neutrophils # 7.2 K/mcL (1.6-8.9)
[2022-04-08 06:56] LABS: Platelet Estimate Normal (Normal)
[2022-04-08] MEDS ORDERED: 0.9 % Sodium Chloride 500 ML ONE (07:45)
[2022-04-08] MEDS: Insulin LISPRO 300 UNITS/3 ML VIAL SUBQ SCH ×4 (08:08→23:05)
[2022-04-08] MEDS: FLUoxetine HCl Oral Soln 20 MG/5 ML UDC GTUBE SCH (09:11)
[2022-04-08] MEDS: Lactobacillus 1 EACH CAP.SPRINK GTUBE SCH ×2 (09:12→23:05)
[2022-04-08] MEDS: Vancomycin Oral Soln 125 MG/2.5 ML UDC GTUBE SCH ×4 (09:12→23:04)
[2022-04-08] MEDS: Hydrocortisone Sodium Succ 100 MG/2 ML VIAL IVP SCH ×2 (09:12→23:08)
[2022-04-08] MEDS: MetroNIDAZOLE 500 MG/100 ML 500 MG/100 ML BAG IVPB SCH ×3 (09:13→23:04)
[2022-04-08 16:21] LABS: Hematocrit 24.1 % (35.3-44.9); Hemoglobin 7.7 g/dL (11.5-15.4)
[2022-04-08] MEDS: Mirtazapine 15 MG TABLET GTUBE SCH (23:05)
[2022-04-08] MEDS: Latanoprost 2.5 ML BOTTLE BOTH EYES SCH (23:07)
[2022-04-09 04:48] LABS: Hemoglobin 8.1 g/dL (11.5-15.4); Mean Corpuscular HGB Conc 32.4 g/dL (31.6-35.5); Mean Corpuscular Hemoglobin 28.7 pg (28.0-33.3); Mean Corpuscular Volume 88.7 fL (83.0-100.0); Mean Platelet Volume 9.5 fL (9.4-12.4); Platelet Count 278 K/mcL (140-400); Red Blood Count 2.82 M/mcL (3.82-4.97); Red Cell Distribution Width 14.4 % (11.5-14.5); White Blood Count 14.6 K/mcL (4.3-11.1)
[2022-04-09 05:02] LABS: Potassium 3.5 mEq/L (3.5-5.1)
[2022-04-09] MEDS: Lactobacillus 1 EACH CAP.SPRINK GTUBE SCH ×2 (10:04→20:22)
[2022-04-09] MEDS: Hydrocortisone Sodium Succ 100 MG/2 ML VIAL IVP SCH ×2 (10:04→20:20)
[2022-04-09] MEDS: MetroNIDAZOLE 500 MG/100 ML 500 MG/100 ML BAG IVPB SCH ×3 (10:04→23:29)
[2022-04-09] MEDS: Vancomycin Oral Soln 125 MG/2.5 ML UDC GTUBE SCH ×4 (10:05→20:22)
[2022-04-09] MEDS: Insulin LISPRO 300 UNITS/3 ML VIAL SUBQ SCH ×4 (10:06→20:25)
[2022-04-09] MEDS: FLUoxetine HCl Oral Soln 20 MG/5 ML UDC GTUBE SCH (10:27)
[2022-04-09] MEDS: 0.9 % Sodium Chloride 1,000 ML IVC SCH ×2 (10:58→23:28)
[2022-04-09] MEDS: Mirtazapine 15 MG TABLET GTUBE SCH (20:22)
[2022-04-09] MEDS: Latanoprost 2.5 ML BOTTLE BOTH EYES SCH (20:24)
[2022-04-10 02:51] LABS: Hematocrit 25.2 % (35.3-44.9); Hemoglobin 8.1 g/dL (11.5-15.4); Mean Corpuscular HGB Conc 32.1 g/dL (31.6-35.5); Mean Corpuscular Volume 90.3 fL (83.0-100.0); Mean Platelet Volume 9.7 fL (9.4-12.4); Platelet Count 304 K/mcL (140-400); Red Blood Count 2.79 M/mcL (3.82-4.97); Red Cell Distribution Width 14.6 % (11.5-14.5); White Blood Count 17.2 K/mcL (4.3-11.1)
[2022-04-10 03:26] LABS: Lymphocytes # 3.1 K/mcL (0.6-4.6); Monocytes # 0.3 K/mcL (0.0-1.3); Neutrophils # 13.8 K/mcL (1.6-8.9); Platelet Estimate Normal (Normal); Smudge Cells Present (Not Present)
[2022-04-10 03:29] LABS: Calcium 7.9 mg/dL (8.6-10.3); Potassium 3.4 mEq/L (3.5-5.1)
[2022-04-10] MEDS: Vancomycin Oral Soln 125 MG/2.5 ML UDC GTUBE SCH ×4 (08:00→21:26)
[2022-04-10] MEDS: FLUoxetine HCl Oral Soln 20 MG/5 ML UDC GTUBE SCH (08:01)
[2022-04-10] MEDS: Hydrocortisone Sodium Succ 100 MG/2 ML VIAL IVP SCH (08:04)
[2022-04-10] MEDS: Lactobacillus 1 EACH CAP.SPRINK GTUBE SCH ×2 (08:07→21:25)
[2022-04-10] MEDS: MetroNIDAZOLE 500 MG/100 ML 500 MG/100 ML BAG IVPB SCH ×3 (08:08→23:59)
[2022-04-10] MEDS: Insulin LISPRO 300 UNITS/3 ML VIAL SUBQ SCH ×4 (08:10→21:31)
[2022-04-10] MEDS ORDERED: Potassium Chloride Elixir 20 MEQ/15 ML UDC GTUBE ONE (10:00)
[2022-04-10] MEDS: 0.9 % Sodium Chloride 1,000 ML IVC SCH (16:05)
[2022-04-10] MEDS: Latanoprost 2.5 ML BOTTLE BOTH EYES SCH (21:24)
[2022-04-10] MEDS: Mirtazapine 15 MG TABLET GTUBE SCH (21:25)
[2022-04-10] MEDS: Hydrocortisone 10 MG TABLET GTUBE SCH (21:25)
[2022-04-11 02:56] LABS: Calcium 8.1 mg/dL (8.6-10.3); Potassium 3.1 mEq/L (3.5-5.1)
[2022-04-11 02:58] LABS: Magnesium 1.4 mg/dL (1.6-2.6); Phosphorous 3.8 mg/dL (2.7-4.5)
[2022-04-11 03:02] LABS: Hematocrit 26.2 % (35.3-44.9); Hemoglobin 8.4 g/dL (11.5-15.4); Mean Corpuscular HGB Conc 32.1 g/dL (31.6-35.5); Mean Corpuscular Hemoglobin 29.1 pg (28.0-33.3); Mean Corpuscular Volume 90.7 fL (83.0-100.0); Mean Platelet Volume 9.6 fL (9.4-12.4); Platelet Count 227 K/mcL (140-400); Red Blood Count 2.89 M/mcL (3.82-4.97); Red Cell Distribution Width 14.6 % (11.5-14.5); White Blood Count 10.8 K/mcL (4.3-11.1)
[2022-04-11 04:48] LABS: Basophils # 0.2 K/mcL (0.0-0.2); Lymphocytes # 3.7 K/mcL (0.6-4.6); Monocytes # 0.2 K/mcL (0.0-1.3); Neutrophils # 6.7 K/mcL (1.6-8.9)
[2022-04-11 04:50] LABS: Platelet Estimate Normal (Normal)
[2022-04-11] MEDS ORDERED: Potassium Chloride Elixir 20 MEQ/15 ML UDC GTUBE ONE ×2 (07:31→17:00)
[2022-04-11] MEDS: Insulin LISPRO 300 UNITS/3 ML VIAL SUBQ SCH ×4 (08:29→21:10)
[2022-04-11] MEDS: FLUoxetine HCl Oral Soln 20 MG/5 ML UDC GTUBE SCH (10:56)
[2022-04-11] MEDS: Lactobacillus 1 EACH CAP.SPRINK GTUBE SCH ×2 (10:56→21:58)
[2022-04-11] MEDS: Hydrocortisone 10 MG TABLET GTUBE SCH ×2 (10:57→21:58)
[2022-04-11] MEDS: Vancomycin Oral Soln 125 MG/2.5 ML UDC GTUBE SCH ×4 (10:57→21:59)
[2022-04-11] MEDS: MetroNIDAZOLE 500 MG/100 ML 500 MG/100 ML BAG IVPB SCH ×2 (10:58→17:07)
[2022-04-11] MEDS: Mirtazapine 15 MG TABLET GTUBE SCH (21:59)
[2022-04-11] MEDS: Latanoprost 2.5 ML BOTTLE BOTH EYES SCH (22:02)
[2022-04-12] MEDS: MetroNIDAZOLE 500 MG/100 ML 500 MG/100 ML BAG IVPB SCH ×2 (02:10→07:58)
[2022-04-12 05:52] LABS: Basophils % 0.3 %; Eosinophils # 0.2 K/mcL (0.0-0.6); Eosinophils % 1.4 %; Hemoglobin 8.6 g/dL (11.5-15.4); Immature Granulocytes % 8.1 % (0-4); Lymphocytes # 3.1 K/mcL (0.6-4.6); Mean Corpuscular HGB Conc 31.9 g/dL (31.6-35.5); Mean Corpuscular Hemoglobin 29.1 pg (28.0-33.3); Mean Corpuscular Volume 91.2 fL (83.0-100.0); Mean Platelet Volume 9.6 fL (9.4-12.4); Monocytes # 0.8 K/mcL (0.0-1.3); Monocytes % 6.3 %; Neutrophils # 7.7 K/mcL (1.6-8.9); Platelet Count 210 K/mcL (140-400); Red Blood Count 2.96 M/mcL (3.82-4.97); Red Cell Distribution Width 14.9 % (11.5-14.5); Segmented Neutrophils % 59.9 %; White Blood Count 12.8 K/mcL (4.3-11.1)
[2022-04-12 06:15] LABS: Calcium 8.2 mg/dL (8.6-10.3); Magnesium 1.7 mg/dL (1.6-2.6); Phosphorous 3.8 mg/dL (2.7-4.5); Potassium 3.4 mEq/L (3.5-5.1)
[2022-04-12] MEDS ORDERED: Potassium Chloride Elixir 20 MEQ/15 ML UDC GTUBE ONE (07:10)
[2022-04-12] MEDS: Insulin LISPRO 300 UNITS/3 ML VIAL SUBQ SCH ×2 (07:23→11:25)
[2022-04-12] MEDS: Lactobacillus 1 EACH CAP.SPRINK GTUBE SCH (08:02)
[2022-04-12] MEDS: FLUoxetine HCl Oral Soln 20 MG/5 ML UDC GTUBE SCH (08:02)
[2022-04-12] MEDS: Hydrocortisone 10 MG TABLET GTUBE SCH (08:02)
[2022-04-12] MEDS: Vancomycin Oral Soln 125 MG/2.5 ML UDC GTUBE SCH ×2 (08:09→12:55)
[2022-04-12 11:42] VITALS: TEMP 98.1
[2022-04-12 14:00] LABS: Influenza A PCR Negative (Negative); Influenza B PCR Negative (Negative); Resp. Syncytial Virus PCR Negative (Negative)
[2022-04-12 14:08] LABS: SARS-CoV-2 by PCR (In House) Negative (Negative)
[2022-04-12 15:26] VITALS: BP 123/76; PULSE 78; O2SAT 95
== END 2022-04-12 16:00 | DRG 871 ==
LOC: ICNU 20:03 → EMEROOARM 20:03 → SUATTDRO 23:54 → ICNU 04-04 00:16 → 2ANU 04-06
PROVIDERS: ADMIT Emergency Medicine; ATTEND Internal Medicine

== ENCOUNTER 2022-05-01 17:36 | Inpatient (IN) ==
[2022-05-01] MEDS ORDERED: 0.9 % Sodium Chloride 1,000 ML IVC ONE ×2 (18:28→21:05)
[2022-05-01 20:30] LABS: Basophils # 0.1 K/mcL (0.0-0.2); Basophils % 0.6 %; Eosinophils % 0.3 %; Hematocrit 37.4 % (35.3-44.9); Hemoglobin 11.8 g/dL (11.5-15.4); Immature Granulocytes % 1.6 % (0-4); Lymphocytes % 17.8 %; Mean Corpuscular HGB Conc 31.6 g/dL (31.6-35.5); Mean Corpuscular Hemoglobin 28.6 pg (28.0-33.3); Mean Corpuscular Volume 90.6 fL (83.0-100.0); Mean Platelet Volume 10.4 fL (9.4-12.4); Monocytes # 0.4 K/mcL (0.0-1.3); Monocytes % 3.4 %; Neutrophils # 8.5 K/mcL (1.6-8.9); Platelet Count 287 K/mcL (140-400); Red Blood Count 4.13 M/mcL (3.82-4.97); Red Cell Distribution Width 15.9 % (11.5-14.5); Segmented Neutrophils % 76.3 %; White Blood Count 11.1 K/mcL (4.3-11.1)
[2022-05-01 20:38] LABS: INR 1.1; Prothrombin Time 12.7 Seconds (9.4-12.1)
[2022-05-01 20:40] LABS: Activated Partial Thrombo Time 29.4 Seconds (26.0-36.0)
[2022-05-01 21:21] LABS: Alanine Aminotransferase 8 Units/L (7-52); Albumin 3.9 g/dL (3.5-5.7); Albumin/Globulin Ratio 0.9 (1.1-2.2); Alkaline Phosphatase 91 Units/L (34-104); Aspartate Amino Transferase 11 Units/L (13-39); BUN/Creatinine Ratio 22 (6-26); Bilirubin,Direct 0.1 mg/dL (0.0-0.2); Bilirubin,Indirect 0.2 mg/dL (0.0-1.0); Bilirubin,Total 0.3 mg/dL (0.3-1.0); Blood Urea Nitrogen 180 mg/dL (8-23); Calcium 9.6 mg/dL (8.6-10.3); Carbon Dioxide 9 mEq/L (23-29); Chloride 108 mEq/L (98-107); Globulin 4.3 g/dL (2.4-3.5); Glucose 101 mg/dL (70-105); Osmolality,Calculated 340 (280-300); Potassium 3.8 mEq/L (3.5-5.1); Sodium 135 mEq/L (136-145); Total Protein 8.2 g/dL (6.4-8.9); Troponin I < 0.03 ng/mL (< 0.04)
[2022-05-01] MEDS ORDERED: MetroNIDAZOLE 500 MG/100 ML 500 MG/100 ML BAG IVPB ONE (21:24)
[2022-05-01] MEDS ORDERED: Naloxone 0.4 MG/ML INJ IVP PRN (21:30)
[2022-05-01] MEDS ORDERED: Acetaminophen 325 MG TABLET PO PRN (21:30)
[2022-05-01] MEDS ORDERED: Ondansetron 4 MG/2 ML VIAL IVP PRN (21:30)
[2022-05-01] MEDS ORDERED: Melatonin 3 MG TABLET PO PRN (21:30)
[2022-05-01] MEDS ORDERED: Sodium Bicarbonate 150 MEQ in D5% in Water 1,000 ML IVC SCH (21:45)
[2022-05-02 05:25] LABS: Hematocrit 28.9 % (35.3-44.9); Mean Corpuscular HGB Conc 31.8 g/dL (31.6-35.5); Mean Corpuscular Hemoglobin 28.3 pg (28.0-33.3); Mean Corpuscular Volume 88.9 fL (83.0-100.0); Mean Platelet Volume 10.9 fL (9.4-12.4); Platelet Count 219 K/mcL (140-400); Red Blood Count 3.25 M/mcL (3.82-4.97); Red Cell Distribution Width 15.8 % (11.5-14.5); White Blood Count 7.6 K/mcL (4.3-11.1)
[2022-05-02 05:27] LABS: Hemoglobin 9.2 g/dL (11.5-15.4)
[2022-05-02 06:19] LABS: Calcium 8.2 mg/dL (8.6-10.3)
[2022-05-02] MEDS: *HR* Heparin 5,000 UNIT/ML VIAL SQ SCH ×3 (11:19→22:32)
[2022-05-02 14:31] LABS: Adenovirus F 40/41 PCR Not detected (Not detect); Astrovirus PCR Not detected (Not detect); Campylobacter by PCR Not detected (Not detect); Cryptosporidium by PCR Not detected (Not detect); Cyclospora cayetanensis PCR Not detected (Not detect); Entamoeba histolytica PCR Not detected (Not detect); Enteroaggregative E.coli(EAEC) Not detected (Not detect); Enteropathogenic E.coli(EPEC) Not detected (Not detect); Enterotoxigenic E.coli (ETEC) Not detected (Not detect); Giardia lamblia PCR Not detected (Not detect); Norovirus GI/GII PCR Not detected (Not detect); Plesiomonas shigelloides PCR Not detected (Not detect); Rotavirus A PCR Not detected (Not detect); Salmonella PCR Not detected (Not detect); Sapovirus PCR Not detected (Not detect); Shig/EnteroinvasiveE coli EIEC Not detected (Not detect); Shigalike tox-prod E coli STEC Not detected (Not detect); Vibrio PCR Not detected (Not detect); Vibrio cholerae PCR Not detected (Not detect); Yersinia enterocolitica PCR Not detected (Not detect)
[2022-05-02 14:33] LABS: C.difficile Toxin A/B Gene PCR DETECTED (Not detect)
[2022-05-02 14:47] LABS: Magnesium 1.4 mg/dL (1.6-2.6); Phosphorous 5.3 mg/dL (2.7-4.5)
[2022-05-02] MEDS ORDERED: Sodium Bicarbonate 75 MEQ in D5% in Water 1,000 ML IVC SCH (15:15)
[2022-05-02 17:31] LABS: Sodium, Urine 61.4 mEq/L
[2022-05-02 17:33] LABS: Protein/Creatinine Ratio,Urine 2.32 mg/mg (0.00-0.20)
[2022-05-02 17:34] LABS: Bacteria,Urine Few per hpf (None-Few); Bilirubin,Urine Negative (Negative); Blood,Urine Small (Negative); Clarity,Urine Ex.Turbid (Clear); Color,Urine Yellow (Yellow); Glucose,Urine (UA) Normal (Normal); Ketones,Urine Negative (Negative); Leukocyte Esterase,Urine Large (Negative); Nitrite,Urine Negative (Negative); PH,Urine 6.5 pH Units (5.0-8.0); Protein,Urine 70 mg/dL (Neg-Trace); RBC,Urine 15-30 per hpf (0-3); Specific Gravity,Urine 1.012 (1.010-1.025); Squamous Epithelial Cell,Urine Few per hpf (None-Few); Urobilinogen,Urine Normal (Normal); WBC,Urine TNTC per hpf (0-3)
[2022-05-02] MEDS ORDERED: Magnesium Sulfate 1 GM/102 ML PIGGYBACK IVPB ONE (18:17)
[2022-05-02] MEDS ORDERED: Hydrocortisone Sodium Succ 100 MG/2 ML VIAL IVP ONE (18:20)
[2022-05-02] MEDS ORDERED: Melatonin 3 MG TABLET GTUBE PRN (18:45)
[2022-05-02] MEDS ORDERED: MetroNIDAZOLE 500 MG/100 ML 500 MG/100 ML BAG IVPB SCH (19:00)
[2022-05-02] MEDS ORDERED: Ondansetron 4 MG/2 ML VIAL IVP PRN (19:46)
[2022-05-02] MEDS ORDERED: Vancomycin Oral Soln 125 MG/2.5 ML UDC GTUBE SCH (21:00)
[2022-05-02] MEDS ORDERED: CefTRIAXone 1,000 MG VIAL ONE (21:20)
[2022-05-02] MEDS: Magnesium Oxide 400 MG TABLET GTUBE SCH (21:46)
[2022-05-02] MEDS: Mirtazapine 15 MG TABLET GTUBE SCH (21:46)
[2022-05-02] MEDS: DICLOFENAC SODIUM TP SCH (21:47)
[2022-05-02] MEDS: Lactobacillus 1 EACH CAP.SPRINK GTUBE SCH (21:47)
[2022-05-02] MEDS: cefTRIAXone 1,000 MG in 0.9 % Sodium Chloride Mini Bag 100 ML IVPB SCH (22:16)
[2022-05-02] MEDS: Cholestyramine 4 GM POWD.PACK PO SCH (22:38)
[2022-05-03] MEDS: Hydrocortisone Sodium Succ 100 MG/2 ML VIAL IVP SCH ×4 (06:02→17:22)
[2022-05-03] MEDS: *HR* Heparin 5,000 UNIT/ML VIAL SQ SCH ×3 (06:07→21:21)
[2022-05-03] MEDS: Sodium Bicarbonate 75 MEQ in D5% in Water 1,000 ML IVC SCH (06:42)
[2022-05-03 06:51] LABS: Thyroid Stimulating Hormone 6.286 mcIU/mL (0.340-5.600)
[2022-05-03 07:41] LABS: Folate 11.2 ng/mL (3.0-16.0); Vitamin B12 > 1500 pg/mL (250-1100)
[2022-05-03 08:02] LABS: Albumin 3.1 g/dL (3.5-5.7); Calcium 7.9 mg/dL (8.6-10.3); Phosphorous 4.5 mg/dL (2.7-4.5); Potassium 2.2 mEq/L (3.5-5.1)
[2022-05-03 08:32] LABS: Albumin/Globulin Ratio 1.1 (1.1-2.2); Bilirubin,Total 0.3 mg/dL (0.3-1.0); Globulin 2.9 g/dL (2.4-3.5); Magnesium 1.4 mg/dL (1.6-2.6)
[2022-05-03] MEDS: Cholecalciferol (D-3) 1,000 UNIT (25MCG) TABLET GTUBE SCH (09:30)
[2022-05-03] MEDS: Lactobacillus 1 EACH CAP.SPRINK GTUBE SCH ×2 (09:30→21:21)
[2022-05-03] MEDS: FLUoxetine HCl Oral Soln 20 MG/5 ML UDC GTUBE SCH (09:30)
[2022-05-03] MEDS: Magnesium Oxide 400 MG TABLET GTUBE SCH ×2 (09:30→21:21)
[2022-05-03] MEDS: Prenatal Vit/FA 1 EACH TABLET GTUBE SCH ×2 (09:45→21:21)
[2022-05-03 10:14] LABS: Vitamin D 25 Hydroxy 54 ng/mL (30-80)
[2022-05-03] MEDS: DICLOFENAC SODIUM TP SCH (10:33)
[2022-05-03] MEDS: Cholestyramine 4 GM POWD.PACK PO SCH ×3 (11:10→14:50)
[2022-05-03] MEDS ORDERED: Magnesium Sulfate 1 GM/102 ML PIGGYBACK IVPB ONE (16:34)
[2022-05-03] MEDS: D5% in 0.9% NACL 1,000 ML IVC SCH (17:19)
[2022-05-03] MEDS: Mirtazapine 15 MG TABLET GTUBE SCH (21:21)
[2022-05-03] MEDS: cefTRIAXone 1,000 MG in 0.9 % Sodium Chloride Mini Bag 100 ML IVPB SCH (21:56)
[2022-05-04] MEDS: Hydrocortisone Sodium Succ 100 MG/2 ML VIAL IVP SCH ×5 (00:16→23:11)
[2022-05-04 02:37] LABS: Hematocrit 24.9 % (35.3-44.9); Hemoglobin 8.3 g/dL (11.5-15.4); Mean Corpuscular HGB Conc 33.3 g/dL (31.6-35.5); Mean Corpuscular Hemoglobin 28.6 pg (28.0-33.3); Mean Corpuscular Volume 85.9 fL (83.0-100.0); Mean Platelet Volume 11.1 fL (9.4-12.4); Platelet Count 212 K/mcL (140-400); Red Cell Distribution Width 15.6 % (11.5-14.5); White Blood Count 9.2 K/mcL (4.3-11.1)
[2022-05-04] MEDS: D5% in 0.9% NACL 1,000 ML IVC SCH ×3 (02:44→20:56)
[2022-05-04 02:52] LABS: Calcium 7.4 mg/dL (8.6-10.3); Magnesium 1.5 mg/dL (1.6-2.6); Potassium 3.4 mEq/L (3.5-5.1)
[2022-05-04] MEDS: *HR* Heparin 5,000 UNIT/ML VIAL SQ SCH ×4 (05:08→20:55)
[2022-05-04 05:39] LABS: Hepatitis B Surface Antigen Nonreactive (Nonreactive)
[2022-05-04 06:08] LABS: Hepatitis B Core IgM Nonreactive (Nonreactive); Hepatitis C Virus Antibody Nonreactive (Nonreactive)
[2022-05-04 06:10] LABS: Hepatitis A Antibody IgM Nonreactive (Nonreactive)
[2022-05-04] MEDS: Magnesium Oxide 400 MG TABLET GTUBE SCH ×2 (09:28→20:55)
[2022-05-04] MEDS: Cholecalciferol (D-3) 1,000 UNIT (25MCG) TABLET GTUBE SCH (09:28)
[2022-05-04] MEDS: Lactobacillus 1 EACH CAP.SPRINK GTUBE SCH ×2 (09:28→20:55)
[2022-05-04] MEDS: FLUoxetine HCl Oral Soln 20 MG/5 ML UDC GTUBE SCH (09:28)
[2022-05-04] MEDS: Cholestyramine 4 GM POWD.PACK PO SCH ×3 (09:28→16:43)
[2022-05-04] MEDS: Sodium Bicarbonate 75 MEQ in D5% in Water 1,000 ML IVC SCH (18:20)
[2022-05-04] MEDS ORDERED: Magnesium Sulfate 1 GM/102 ML PIGGYBACK IVPB ONE (19:00)
[2022-05-04] MEDS ORDERED: Potassium Chloride Elixir 20 MEQ/15 ML UDC PO ONE (19:30)
[2022-05-04] MEDS: Prenatal Vit/FA 1 EACH TABLET GTUBE SCH (20:55)
[2022-05-04] MEDS: Mirtazapine 15 MG TABLET GTUBE SCH (20:55)
[2022-05-04] MEDS: CEFEPIME HCL IVPB SCH (20:57)
[2022-05-04] MEDS: SODIUM CHLORIDE 0.9% IVPB SCH (20:57)
[2022-05-05] MEDS: *HR* Heparin 5,000 UNIT/ML VIAL SQ SCH ×4 (05:46→22:37)
[2022-05-05] MEDS: Lactobacillus 1 EACH CAP.SPRINK GTUBE SCH ×2 (08:39→20:06)
[2022-05-05] MEDS: Cholestyramine 4 GM POWD.PACK PO SCH ×3 (08:39→16:56)
[2022-05-05] MEDS: Magnesium Oxide 400 MG TABLET GTUBE SCH ×2 (08:40→20:06)
[2022-05-05] MEDS: Cholecalciferol (D-3) 1,000 UNIT (25MCG) TABLET GTUBE SCH (08:40)
[2022-05-05] MEDS: Hydrocortisone Sodium Succ 100 MG/2 ML VIAL IVP SCH ×2 (08:40→16:57)
[2022-05-05] MEDS: FLUoxetine HCl Oral Soln 20 MG/5 ML UDC GTUBE SCH (08:41)
[2022-05-05 13:15] LABS: Hematocrit 28.3 % (35.3-44.9); Hemoglobin 8.9 g/dL (11.5-15.4); Mean Corpuscular HGB Conc 31.4 g/dL (31.6-35.5); Mean Corpuscular Hemoglobin 28.8 pg (28.0-33.3); Mean Corpuscular Volume 91.6 fL (83.0-100.0); Mean Platelet Volume 10.4 fL (9.4-12.4); Platelet Count 169 K/mcL (140-400); Red Blood Count 3.09 M/mcL (3.82-4.97); Red Cell Distribution Width 16.3 % (11.5-14.5); White Blood Count 9.7 K/mcL (4.3-11.1)
[2022-05-05 13:43] LABS: Calcium 8.2 mg/dL (8.6-10.3); Magnesium 1.3 mg/dL (1.6-2.6); Potassium 3.8 mEq/L (3.5-5.1)
[2022-05-05] MEDS ORDERED: Magnesium Sulfate 1 GM/102 ML PIGGYBACK IVPB ONE (15:23)
[2022-05-05] MEDS: 0.9 % Sodium Chloride 1,000 ML IVC SCH (17:29)
[2022-05-05 18:30] LABS: Bacteria,Urine Many per hpf (None-Few); Bilirubin,Urine Negative (Negative); Blood,Urine Large (Negative); Clarity,Urine Turbid (Clear); Color,Urine Light-Yellow (Yellow); Glucose,Urine (UA) Normal (Normal); Ketones,Urine Negative (Negative); Leukocyte Esterase,Urine Moderate (Negative); Nitrite,Urine Negative (Negative); Protein,Urine 50 mg/dL (Neg-Trace); RBC,Urine 30-50 per hpf (0-3); Specific Gravity,Urine 1.011 (1.010-1.025); Urobilinogen,Urine Normal (Normal); WBC,Urine 50-100 per hpf (0-3)
[2022-05-05] MEDS: D5% in 0.9% NACL 1,000 ML IVC SCH (19:26)
[2022-05-05] MEDS: SODIUM CHLORIDE 0.9% IVPB SCH (20:04)
[2022-05-05] MEDS: CEFEPIME HCL IVPB SCH (20:04)
[2022-05-05] MEDS: Mirtazapine 15 MG TABLET GTUBE SCH (20:06)
[2022-05-05] MEDS: Prenatal Vit/FA 1 EACH TABLET GTUBE SCH (20:06)
[2022-05-06] MEDS: Hydrocortisone Sodium Succ 100 MG/2 ML VIAL IVP SCH ×3 (00:23→14:42)
[2022-05-06] MEDS: D5% in 0.9% NACL 1,000 ML IVC SCH (01:27)
[2022-05-06] MEDS: *HR* Heparin 5,000 UNIT/ML VIAL SQ SCH ×3 (05:29→22:20)
[2022-05-06] MEDS: 0.9 % Sodium Chloride 1,000 ML IVC SCH ×2 (05:29→19:32)
[2022-05-06] MEDS: Cholestyramine 4 GM POWD.PACK PO SCH ×3 (08:12→16:31)
[2022-05-06] MEDS: Magnesium Oxide 400 MG TABLET GTUBE SCH ×2 (08:20→20:33)
[2022-05-06] MEDS: Cholecalciferol (D-3) 1,000 UNIT (25MCG) TABLET GTUBE SCH (08:20)
[2022-05-06] MEDS: Lactobacillus 1 EACH CAP.SPRINK GTUBE SCH ×2 (08:20→20:33)
[2022-05-06] MEDS: FLUoxetine HCl Oral Soln 20 MG/5 ML UDC GTUBE SCH (08:21)
[2022-05-06 09:27] LABS: Hemoglobin 8.5 g/dL (11.5-15.4); Mean Corpuscular HGB Conc 31.5 g/dL (31.6-35.5); Mean Corpuscular Hemoglobin 28.8 pg (28.0-33.3); Mean Corpuscular Volume 91.5 fL (83.0-100.0); Mean Platelet Volume 10.9 fL (9.4-12.4); Platelet Count 211 K/mcL (140-400); Red Blood Count 2.95 M/mcL (3.82-4.97); Red Cell Distribution Width 16.6 % (11.5-14.5)
[2022-05-06 09:32] LABS: White Blood Count 17.5 K/mcL (4.3-11.1)
[2022-05-06 09:46] LABS: Calcium 8.1 mg/dL (8.6-10.3); Potassium 4.4 mEq/L (3.5-5.1)
[2022-05-06] MEDS ORDERED: Magnesium Sulfate 1 GM/102 ML PIGGYBACK IVPB ONE (13:32)
[2022-05-06] MEDS: Amoxicillin/Clavulanate 250 MG TABLET PO SCH (17:30)
[2022-05-06] MEDS: Mirtazapine 15 MG TABLET GTUBE SCH (20:33)
[2022-05-06] MEDS: Prenatal Vit/FA 1 EACH TABLET GTUBE SCH (20:34)
[2022-05-07] MEDS: Hydrocortisone Sodium Succ 100 MG/2 ML VIAL IVP SCH ×3 (00:01→15:34)
[2022-05-07 05:13] LABS: Hematocrit 26.5 % (35.3-44.9); Hemoglobin 8.1 g/dL (11.5-15.4); Mean Corpuscular HGB Conc 30.6 g/dL (31.6-35.5); Mean Corpuscular Hemoglobin 28.2 pg (28.0-33.3); Mean Corpuscular Volume 92.3 fL (83.0-100.0); Mean Platelet Volume 10.7 fL (9.4-12.4); Platelet Count 189 K/mcL (140-400); Red Blood Count 2.87 M/mcL (3.82-4.97); Red Cell Distribution Width 17.1 % (11.5-14.5); White Blood Count 17.5 K/mcL (4.3-11.1)
[2022-05-07] MEDS: *HR* Heparin 5,000 UNIT/ML VIAL SQ SCH ×3 (05:21→22:32)
[2022-05-07 05:34] LABS: Calcium 7.8 mg/dL (8.6-10.3); Magnesium 1.6 mg/dL (1.6-2.6); Potassium 4.4 mEq/L (3.5-5.1)
[2022-05-07] MEDS: 0.9 % Sodium Chloride 1,000 ML IVC SCH (08:27)
[2022-05-07] MEDS: Lactobacillus 1 EACH CAP.SPRINK GTUBE SCH ×2 (08:28→20:08)
[2022-05-07] MEDS: Magnesium Oxide 400 MG TABLET GTUBE SCH ×2 (08:28→20:08)
[2022-05-07] MEDS: Cholecalciferol (D-3) 1,000 UNIT (25MCG) TABLET GTUBE SCH (08:28)
[2022-05-07] MEDS: Cholestyramine 4 GM POWD.PACK PO SCH ×3 (08:29→15:34)
[2022-05-07] MEDS: Nystatin POWDER 30 GM BOTTLE TP SCH ×3 (08:29→15:34)
[2022-05-07] MEDS: FLUoxetine HCl Oral Soln 20 MG/5 ML UDC GTUBE SCH (08:29)
[2022-05-07] MEDS: Amoxicillin/Clavulanate 250 MG TABLET PO SCH ×2 (08:29→15:33)
[2022-05-07] MEDS ORDERED: Fosfomycin Tromethamine 3 GM Packet PO ONE (17:00)
[2022-05-07] MEDS: Mirtazapine 15 MG TABLET GTUBE SCH (20:08)
[2022-05-07] MEDS: Prenatal Vit/FA 1 EACH TABLET GTUBE SCH (20:08)
[2022-05-08] MEDS: Hydrocortisone Sodium Succ 100 MG/2 ML VIAL IVP SCH ×2 (00:31→09:56)
[2022-05-08 04:16] LABS: Hematocrit 28.6 % (35.3-44.9); Hemoglobin 8.7 g/dL (11.5-15.4); Mean Corpuscular HGB Conc 30.4 g/dL (31.6-35.5); Mean Corpuscular Hemoglobin 28.2 pg (28.0-33.3); Mean Corpuscular Volume 92.6 fL (83.0-100.0); Mean Platelet Volume 10.3 fL (9.4-12.4); Platelet Count 190 K/mcL (140-400); Red Blood Count 3.09 M/mcL (3.82-4.97); Red Cell Distribution Width 17.2 % (11.5-14.5); White Blood Count 20.8 K/mcL (4.3-11.1)
[2022-05-08 04:27] LABS: Calcium 7.8 mg/dL (8.6-10.3); Magnesium 1.4 mg/dL (1.6-2.6); Potassium 4.7 mEq/L (3.5-5.1)
[2022-05-08] MEDS: *HR* Heparin 5,000 UNIT/ML VIAL SQ SCH (05:47)
[2022-05-08] MEDS: Nystatin POWDER 30 GM BOTTLE TP SCH ×2 (09:07→10:31)
[2022-05-08] MEDS: Cholecalciferol (D-3) 1,000 UNIT (25MCG) TABLET GTUBE SCH (09:46)
[2022-05-08] MEDS: FLUoxetine HCl Oral Soln 20 MG/5 ML UDC GTUBE SCH (09:46)
[2022-05-08] MEDS: Magnesium Oxide 400 MG TABLET GTUBE SCH (09:46)
[2022-05-08] MEDS: Lactobacillus 1 EACH CAP.SPRINK GTUBE SCH (09:46)
[2022-05-08] MEDS: Cholestyramine 4 GM POWD.PACK PO SCH (09:47)
[2022-05-08 10:36] VITALS: BP 124/81; PULSE 61; TEMP 97.8; O2SAT 100
== END 2022-05-08 12:57 | disposition hospice, home (50) | DRG 682 ==
LOC: EMEROOARM 17:36 → 2ANU 17:36 → SUATTDRO 05-02 12:20 → 2ANU 05-02 12:57 → SUATTDRO 05-03 19:24
PROVIDERS: ADMIT Internal Medicine; ATTEND Internal Medicine

== ENCOUNTER 2022-05-27 08:28 | Inpatient (IN) ==
[2022-05-27] MEDS ORDERED: Ondansetron ODT 4 MG TAB.RAPDIS SL PRN (13:12)
[2022-05-27] MEDS ORDERED: Morphine Sulfate Oral CONC 10 MG/0.5 ML ORAL.SYG SL PRN (13:14)
[2022-05-27] MEDS ORDERED: Haloperidol Oral Conc 10 MG/5 ML UDC PO PRN (13:15)
[2022-05-27] MEDS ORDERED: *HR* LORazepam Oral Conc 2 MG/ML SL PRN ×2 (13:15→14:10)
[2022-05-27] MEDS ORDERED: Cholestyramine 4 GM POWD.PACK PO SCH (16:30)
[2022-05-27] MEDS ORDERED: Hydrocortisone 10 MG TABLET GTUBE SCH (21:00)
[2022-05-27] MEDS ORDERED: Mirtazapine 15 MG TABLET PO SCH (21:00)
[2022-05-28] MEDS ORDERED: FLUoxetine HCl 10 MG CAPSULE PO SCH (09:00)
== END 2022-05-27 14:44 | disposition expired | DRG 951 ==
LOC: 2ANU 12:36
PROVIDERS: ADMIT Internal Medicine Hospice and Palliative Medicine; ATTEND Internal Medicine Hospice and Palliative Medicine